=== PATIENT | male | born 1960 | race African-American/Black ===

== ENCOUNTER 2017-05-13 05:02 | Inpatient (IN) | payer OTHER, SELFPAY ==
[2017-05-13 05:47] LABS: #Eosinphils 0.1 thou/uL (0.0-0.7); #Monocytes 0.5 thou/uL (0.11-0.59); #Neutrophils 4.3 thou/uL (1.40-6.50); %Basophils 0.7 % (0.0-1.0); %Eosinophils 1.1 % (0.0-10.0); %Lymphocytes 16.6 % (21.0-51.0); %Monocytes 8.4 % (0.0-10.0); Hematocrit 48.2 % (42.0-52.0); Mean Platelet Volume 8.5 fL (7.4-10.4); White Blood Cell (WBC) Count 5.9 thou/uL (4.8-10.8)
[2017-05-13 05:51] LABS: Anion Gap 8 mmol/L (-14-95); T. Carbon Dioxide 21.8 mmol/L (1.0-85.0); pH (Venous) 7.468 (7.35-7.45); vO2 Saturation-calc 99.2 % (0.0-100.0)
[2017-05-13 05:55] LABS: Lactic Acid - Sepsis 1.2 mmol/L (0.5-2.2)
[2017-05-13 06:01] LABS: ALT (SGPT) 37 U/L (8-55); AST (SGOT) 30 U/L (5-34); Alkaline Phosphatase 93 U/L (40-150); Anion Gap 14 mmol/L (10-20); BUN (Urea Nitrogen) 17 mg/dL (8.4-25.7); Bilirubin, Total 0.9 mg/dL (0.2-1.2); Calc. Creatinine Clearance 0 mL/min (70-130); Calcium 9.2 mg/dL (7.8-10.44); Carbon Dioxide 22 mmol/L (22-29); Chloride 106 mmol/L (98-107); Estimated GFR-MDRD 81; Globulin 3.2 g/dL (2.4-3.5); Protein, Total 7.2 g/dL (6.0-8.3)
[2017-05-13] MEDS ORDERED: Azithromycin 250 MG TAB ONE (06:48)
[2017-05-13] MEDS ORDERED: Furosemide 40 MG/4 ML VIAL ONE (07:39)
--- NOTE | 2017-05-13 08:01 | RAD ---
PORTABLE UPRIGHT FRONTAL CHEST RADIOGRAPH: DATE: 05/13/17. COMPARISON: 04/20/16. HISTORY: Dyspnea. FINDINGS: Cardiac silhouette is prominent, which signify magnification and/or enlargement. There is no pneumot horax or large-volume pleural effusion. There is new hazy linear density in bilateral perihilar denisse ons and both lung bases. No focal consolidation. IMPRESSION: Pulmonary vascular prominence with interstitial linear density in the perihilar regions in both lung bases suggests interstitial edema. Interstitial inflammatory process cannot be excluded. Followup i ovidio following treatment advised. POS: [facility]
--- NOTE | 2017-05-13 09:08 | HP-2 ---
DATE OF ADMISSION: 05/13/2017 ATTENDING: Dr. Teodoro Veliz ADMISSION TIME: 625. CODE STATUS: Full code. PRIMARY CARE PHYSICIAN: Ismael hernandez. HISTORIAN: Patient. RESIDENT: PGY1 - Dr. Ara Cowan CHIEF COMPLAINT: Shortness of breath. HISTORY OF PRESENT ILLNESS: This is a 57-year-old man with a past medical history of hypertension who presents with a 2-3 week history of worsening shortness of breath. The patient states that he cannot lie flat without getting shortness of breath and feels that he cannot breathe when he lies flat. He also endorses a 2-3 day history of worsening cough and yellow/pink sputum. He endorses some fevers and chills at home, but he did not take his temperature. He also endorses some pain with coughing. The patient states that he had a test done on his heart a year ago which told him that the pumping function was not very good. He has been off his medications for several months because he does not have insurance and he was not able to afford them. The patient received 1 gram of ceftriaxone in the ER, azithromycin 500 mg p.o., 1 liter normal saline and DuoNebs x1. PAST MEDICAL HISTORY: Hypertension, asthma, hyperlipidemia, CHF with an ejection fraction of 32% on echo in 04/2016. PAST SURGICAL HISTORY: Denies. ALLERGIES: Denies. MEDICATIONS: Denies. FAMILY HISTORY: Denies. SOCIAL HISTORY: Endorses [id number] smoking history. Endorses drinking 6-7 drinks per weekend. Denies drug use. REVIEW OF SYSTEMS: GENERAL: Endorses fevers and chills. RESPIRATORY: Endorses cough, congestion, and shortness of breath, and sputum that is yellow and pink tinged. CARDIOVASCULAR: Denies chest pain, palpitations, edema. Endorses orthopnea. Denies paroxysmal nocturnal dyspnea. GI: Denies nausea, vomiting, diarrhea, constipation. NEUROLOGIC: Endorses generalized weakness. Denies numbness or syncope. MUSCULOSKELETAL: Denies pain or tenderness. SKIN: Denies rashes or lesions. GENITOURINARY: Denies dysuria or incontinence. PSYCHIATRIC: Denies anxiety or depression. ENT: Endorses congestion. Denies rhinorrhea or sore throat. PHYSICAL EXAMINATION: VITAL SIGNS: Blood pressure 145/91, pulse 98, respiratory rate 22, T-max 99.3, pulse ox 98% on 2 liters. Current weight 90 kilos. GENERAL: Alert and oriented x4, no apparent distress, well-developed, well- nourished, obese, appropriately interactive. EYES: PERRLA, EOMI. Conjunctivae within normal limits. ENT: Nasal mucosa within normal limits. Oropharynx within normal limits. NECK: Supple, no lymphadenopathy, no thyromegaly, no bruits. CARDIAC: Regular rate and rhythm. No murmur, no gallops. 2+, pedal pulses, 2 + radial pulses. RESPIRATORY: Respiratory rate normal. No retractions. Clear to auscultation bilaterally. SKIN: Warm and dry. ABDOMEN: Soft, tender to palpation in the right upper quadrant. Bowel sounds normoactive through all 4 quadrants. No masses or distention. EXTREMITIES: No clubbing, cyanosis or edema. MUSCULOSKELETAL: Structure within normal limits. Tone within normal limits. NEUROLOGICAL: No focal deficits. Sensation within normal limits. Cranial nerves II-XII intact. GCS 15. PSYCHIATRIC: Appropriate. LABORATORY DATA: CBC 5.9, 15.6, 48.2, platelets 238. CMP, 138, 4.3, 106, 22, 17, 1.13 109. AST, ALT and alkaline phosphatase are 30, 37, 93. Calcium, total protein and albumin are 9.2, 7.2 and 4.0. Total bilirubin 0.9, lactic acid 1.2. BNP 1639. CK-MB 2.1, troponin 0.30. Chest x-ray: Pulmonary vascular prominence with interstitial linear density in the perihilar region and both lung bases suggests interstitial edema, interstitial inflammatory process cannot be excluded. No pneumothorax or large volume pleural effusion, no focal consolidation. ASSESSMENT AND PLAN: Paul Lynn is a 57-year-old man with a past medical history of congestive heart failure with ejection fraction of 32% via stress test in 04/2016, is currently off of medications due to no insurance, presents with worsening shortness of breath over the past 2-3 weeks with cough and sputum production with an elevated BNP of 1639 and a chest x-ray that shows pulmonary congestion and chest x-ray which shows pulmonary interstitial edema, admitted for acute hypoxic respiratory failure 2/2 congestive heart failure exacerbation. 1. Acute hypoxic respiratory failure secondary to congestive heart failure exacerbation: The patient was placed on oxygen, is currently requiring 2 liters with saturations 98%. We will continue to monitor. A repeat chest x- ray will be done in the morning after the patient is diuresed throughout the day. In addition, we will monitor patient's vitals q.4 h for acute change in respiratory status. 2. Congestive heart failure with ejection fraction 32%, systolic in etiology. We will provide 40 IV dose of Lasix now and place the patient on 40 IV Lasix b.i.d. We will restart the patient's home medications of lisinopril; however, we will increase lisinopril to 10 mg daily. We will provide aspirin 81 mg daily. We will restart the patient's home medication of atorvastatin 40 mg. We will also order a lipid profile and a CK. The patient received a stress 1 year ago showing the ejection fraction 32%. However, there is no record of echo. We will place an order for echo to be done during this hospitalization. We will strictly monitor the patient's I's and O's. We will place patient on fluid restriction. We will continue to overall diurese the patient while monitoring the patient's BUN and creatinine. We will get CBC and BMP every morning. 3. Elevated troponin. We will trend the patient's troponins. The patient is not having any chest pain. We will order an EKG for the patient. 4. Respiratory alkalosis. We will continue to monitor the patient's respiratory status. This is likely because the patient came in with an increased respiratory rate and slightly hypoxic. We will continue to monitor the patient's respiratory status. 5. Tobacco abuse, alcohol use and drug abuse. We will educate the patient and provide supportive services if desired. DISPOSITION AND LENGTH OF HOSPITAL STAY: 2-3 days. Symptomatic medications will be provided. History and physical exam as well as management discussed with Dr. Sascha Charles. Patient seen by me with residents. I agree with reese portions of note above. Longstanding hypertension and known CHF. He was here in January and had a stress test which showed EF of 32%. No cath done at that time and no history of ASCVD although he does have risk factors, smoker, hypertension, and lipids. He is off of his meds now. We will resume his home meds, give IV lasix and check an echo. Cardiology also consulted. He should be on carvedilol, MARFIER/HCTZ and possibly spironolactone. JUAN J Charles MD MTDD
[2017-05-13 12:02] LABS: Troponin I 0.036 ng/mL (< 0.028)
[2017-05-13] MEDS ORDERED: Guaifenesin DM 100-10/5 ML UDCUP PO PRN (12:06)
[2017-05-13] MEDS ORDERED: Enoxaparin Sodium 40 MG/0.4 ML SYRINGE SC SCH (12:15)
[2017-05-13] MEDS ORDERED: Lisinopril 10 MG TAB PO SCH (12:15)
[2017-05-13] MEDS: Atorvastatin Calcium 40 MG TAB PO SCH (13:13)
[2017-05-13] MEDS: Furosemide 40 MG/4 ML VIAL SLOW IVP SCH (13:13)
[2017-05-13] MEDS: Acetaminophen 325 MG TAB PO PRN ×2 (13:14→20:43)
[2017-05-13] MEDS: Nicotine 21 MG PATCH TD SCH (13:14)
[2017-05-13 13:33] LABS: ALT (SGPT) 34 U/L (8-55); AST (SGOT) 27 U/L (5-34); Alkaline Phosphatase 86 U/L (40-150); Bilirubin, Direct 0.3 mg/dL (0.1-0.3); Bilirubin, Total 0.8 mg/dL (0.2-1.2)
[2017-05-13 16:20] VITALS: BMI 22.0
[2017-05-13] MEDS ORDERED: FLU VACC QS2017-18 36 mo. & older 0.5 ML SYRINGE IM ONE (21:00)
[2017-05-14 05:02] LABS: #Eosinphils 0.1 thou/uL (0.0-0.7); #Lymphocytes 1.1 thou/uL (1.20-3.40); #Monocytes 0.4 thou/uL (0.11-0.59); #Neutrophils 1.9 thou/uL (1.40-6.50); %Basophils 0.8 % (0.0-1.0); %Eosinophils 3.1 % (0.0-10.0); %Lymphocytes 30.8 % (21.0-51.0); %Monocytes 10.8 % (0.0-10.0); Hematocrit 51.2 % (42.0-52.0); Mean Platelet Volume 8.8 fL (7.4-10.4); Red Blood Cell (RBC) Count 5.48 mill/uL (4.70-6.10); White Blood Cell (WBC) Count 3.5 thou/uL (4.8-10.8)
[2017-05-14 05:31] LABS: Anion Gap 13 mmol/L (10-20); BUN (Urea Nitrogen) 20 mg/dL (8.4-25.7); Calc. Creatinine Clearance 98 mL/min (70-130); Calcium 9.1 mg/dL (7.8-10.44); Carbon Dioxide 23 mmol/L (22-29); Chloride 105 mmol/L (98-107); Estimated GFR-MDRD Greater than 90
--- NOTE | 2017-05-14 06:02 | PDOC.FM ---
- Subjective Subjective: Patient had a good night. He states he was able to sleep better last night and has not been as short of breath last night. He is saying that he is peeing a lot since we started the medication started. He is feeling much better. - Objective Vital Signs & Weight: Vital Signs (12 hours) Temp Pulse Resp BP Pulse Ox 05/14/17 04:00 97.6 F 73 16 112/72 95 05/14/17 00:29 98 05/13/17 19:18 98.6 F 85 20 141/95 H 98 Weight Weight 77.564 kg I&O: I&O is only from the account executive healthcare from 05/13-05/14 Intake: 480 ml Output: 1200 ml Net: -720 ml Result Diagrams: 05/14/17 04:16 05/14/17 04:16 <Hiram Harden - Last Filed: 05/14/17 08:29> - Objective Vital Signs & Weight: Vital Signs (12 hours) Temp Pulse Resp BP BP Pulse Ox 05/14/17 09:22 124/78 05/14/17 08:00 97.8 F 83 18 124/78 97 05/14/17 04:00 97.6 F 73 16 112/72 95 05/14/17 00:29 98 Weight Weight 77.564 kg I&O: 05/13/17 05/14/17 05/15/17 06:59 06:59 06:59 Intake Total 480 Output Total 1200 Balance -720 Result Diagrams: 05/14/17 04:16 05/14/17 04:16 <Kenroy Queen - Last Filed: 05/14/17 10:35> - Objective Vital Signs & Weight: Vital Signs (12 hours) Temp Pulse Resp BP BP Pulse Ox 05/14/17 09:22 124/78 05/14/17 08:00 97.8 F 83 18 124/78 97 05/14/17 04:00 97.6 F 73 16 112/72 95 05/14/17 00:29 98 Weight Weight 171 lb I&O: 05/13/17 05/14/17 05/15/17 06:59 06:59 06:59 Intake Total 480 240 Output Total 1200 Balance -720 240 Result Diagrams: 05/14/17 04:16 05/14/17 04:16 <Sascha Charles - Last Filed: 05/14/17 10:50> Phys Exam - Physical Examination HEENT: moist MMs Neck: no nodes Respiratory: no wheezing, clear to auscultation bilateral Cardiovascular: RRR, no significant murmur Gastrointestinal: soft, non-tender, no distention, positive bowel sounds Musculoskeletal: no edema, pulses present Neurological: non-focal, normal sensation, moves all 4 limbs Psychiatric: normal affect, A&O x 3 Skin: no rash <Hiram Harden - Last Filed: 05/14/17 08:29> Dx/Plan (1) Acute exacerbation of congestive heart failure Code(s): I50.9 - HEART FAILURE, UNSPECIFIED Status: Acute Plan: Improved today. -No documentation of I&Os from prior to 7PM on 05/13 -Will continue to diurese and initiate mcfp (PO) therapy. -Awaiting ECHO results (2) HTN (hypertension) Code(s): I10 - ESSENTIAL (PRIMARY) HYPERTENSION Status: Chronic Plan: -Uncontrolled at home -Will initiate therapy and monitor. (3) Elevated troponin Code(s): R74.8 - ABNORMAL LEVELS OF OTHER SERUM ENZYMES Status: Acute Plan: Likely demand ischemia -Trended down -Patient is asymptomatic -Will repeat Cardiac profile with EKG if chest pain occurs. (4) Tobacco abuse Code(s): Z72.0 - TOBACCO USE Status: Chronic Plan: -Counseled to quit -Will have nicotine patch available if needed. - Plan Plan: Will initiate terminal supervisor therapy and set up patient with resources to pay for medications. <Hiram Harden - Last Filed: 05/14/17 08:29> - Plan Plan: Upper Level Note: S: Patient feels significantly better today. Reports no dyspnea or orthopnea. Vitals BP 112/72 O2 95% on room air Temp 97.6 RR 16 H6 73 Exam: A&Ox3. NAD. Lungs CTAB. Normal work of breathing. Heart regular rate and rhythm with no murmurs, rubs, or gallops. No LE edema A/P: 1) CHF with acute exacerbation - Now resolved. Stopping Lasix. Will start B-vibha if BP will tolerate. Echo pending. Consult cardiology for further recs. Will need close outpatient follow up 2) HCTZ - Adding HCTZ to regimen. Already on Lisinopril. Will change to lisinopril-HCTZ combo tomorrow as that is on the $4 list at [facility]. Patient may not experience much BP benefit from MARIFER but will benefit with regards to his CHF. If his BP will tolerate, we will consider starting a low dose B- vibha to help with CHF <Kenroy Queen - Last Filed: 05/14/17 10:35> Attending Addendum - Attending Addendum I personally evaluated the patient and discussed the management with Dr. Harden and Bret I agree with the History, Examination, Assessment and Plan documented above. <Sascha Charles - Last Filed: 05/14/17 10:50>
[2017-05-14] MEDS: Furosemide 40 MG/4 ML VIAL SLOW IVP SCH (06:20)
[2017-05-14] MEDS: Acetaminophen 325 MG TAB PO PRN ×3 (06:24→19:07)
[2017-05-14] MEDS ORDERED: Lisinopril 10 MG TAB PO SCH (09:00)
[2017-05-14] MEDS: Atorvastatin Calcium 40 MG TAB PO SCH (09:22)
[2017-05-14] MEDS: Enoxaparin Sodium 40 MG/0.4 ML SYRINGE SC SCH (09:23)
[2017-05-14] MEDS: Nicotine 21 MG PATCH TD SCH (12:13)
--- NOTE | 2017-05-14 15:59 | CON ---
DATE OF CONSULTATION: 05/14/2017 HISTORY OF PRESENT ILLNESS: The patient is a 57-year-old gentleman with a history of a cardiomyopathy who presents with increasing dyspnea. The patient was seen approximately a year ago with development of chest pain and dyspnea. He was found to have a severe cardiomyopathy. The patient underwent a nuclear stress test, which revealed ejection fraction of 32% with no evidence of ischemia. The patient was placed on medical therapy. The patient did not come for followup. The patient reports that he has not been compliant with his medications. He reports having marked shortness of breath. He denies having any further chest discomfort. PAST MEDICAL HISTORY: 1. Cardiomyopathy. 2. Hypertension. PAST SURGICAL HISTORY: None. SOCIAL HISTORY: The patient has a long history of tobacco abuse and consumes excessive amounts of alcohol. ALLERGIES: None. MEDICATIONS: None. REVIEW OF SYSTEMS: Ten-point system otherwise unremarkable. PHYSICAL EXAMINATION: GENERAL: This is a well-developed gentleman, in no acute distress. VITAL SIGNS: Blood pressure 131/83. NECK: Showed no jugular venous distention. LUNGS: Have a few crackles in both lung elena. HEART: Regular rate and rhythm, normal S1, S2. ABDOMEN: Nondistended. EXTREMITIES: Showed trace edema. SKIN: Warm and dry. NEUROLOGIC: Nonfocal. VASCULAR: Radial pulses are 2+. LABORATORY DATA: White blood count 5.6, hemoglobin 16.1, hematocrit 51.2, platelets were 211. Sodium is 137, potassium 3.9, chloride 105, bicarbonate 23 , BUN 20, creatinine is 0.92, glucose is 87. His EKG reveals him to have normal sinus rhythm with a T-wave abnormality suggestive of ischemia. IMPRESSION: 1. Congestive heart failure. 2. Cardiomyopathy. 3. Hypertension. 4. Tobacco abuse. 5. Ethanol abuse. This unfortunate gentleman has a severe cardiomyopathy. I have recommended that he proceed with cardiac catheterization to define whether he has any evidence of significant coronary artery disease. From a cardiac standpoint, the life threatening consequences of his noncompliance have been explained to the patient. The importance of him discontinuing the use of alcohol and tobacco have also been explained. PLAN: 1. Start Coreg 3.125 twice a day. 2. Start lisinopril. 3. Add low dose spironolactone. 4. Proceed with cardiac catheterization. [facility]
[2017-05-14] MEDS: Carvedilol 3.125 MG TAB PO SCH (17:20)
[2017-05-14] MEDS ORDERED: Hydrochlorothiazide 25 MG TAB PO SCH (18:00)
[2017-05-14] MEDS: Lisinopril 2.5 MG TAB PO SCH (20:12)
[2017-05-15] MEDS: Acetaminophen 325 MG TAB PO PRN ×2 (03:54→11:59)
[2017-05-15 05:11] LABS: #Eosinphils 0.2 thou/uL (0.0-0.7); #Lymphocytes 1.1 thou/uL (1.20-3.40); #Monocytes 0.4 thou/uL (0.11-0.59); #Neutrophils 1.4 thou/uL (1.40-6.50); %Basophils 0.6 % (0.0-1.0); %Eosinophils 5.5 % (0.0-10.0); %Monocytes 13.1 % (0.0-10.0); Anion Gap 13 mmol/L (10-20); BUN (Urea Nitrogen) 24 mg/dL (8.4-25.7); Calc. Creatinine Clearance 86 mL/min (70-130); Calcium 9.3 mg/dL (7.8-10.44); Carbon Dioxide 23 mmol/L (22-29); Chloride 104 mmol/L (98-107); Estimated GFR-MDRD 87; Hematocrit 50.6 % (42.0-52.0); Red Blood Cell (RBC) Count 5.43 mill/uL (4.70-6.10); White Blood Cell (WBC) Count 3.1 thou/uL (4.8-10.8)
--- NOTE | 2017-05-15 06:08 | PDOC.FM ---
- Subjective Subjective: Patient had a great night. He states he is basically back to normal. He said he was able to walk as far as he wanted and wasn't SOB. He also notes he doesn't have to take "baby" breaths and doesn't cough after every breath. Yesterday he refused a cardiac Cath with Dr. Santa and has opted to do medical management at this time. - Objective Vital Signs & Weight: Vital Signs (12 hours) Temp Pulse Resp BP Pulse Ox 05/15/17 04:00 97.9 F 68 18 130/70 95 05/15/17 02:10 94 L 05/14/17 19:30 98.0 F 74 18 137/81 94 L Weight Weight 78.925 kg I&O: 05/13/17 05/14/17 05/15/17 06:59 06:59 06:59 Intake Total 480 1440 Output Total 1200 1999 Balance -513 -880 Result Diagrams: 05/15/17 04:18 05/15/17 04:18 <Hiram Harden - Last Filed: 05/15/17 08:23> - Objective Vital Signs & Weight: Vital Signs (12 hours) Temp Pulse Resp BP BP Pulse Ox 05/15/17 08:52 119/80 05/15/17 08:49 70 119/80 05/15/17 08:00 98.2 F 70 17 119/80 95 05/15/17 07:23 97.9 F 68 18 95 05/15/17 04:00 97.9 F 68 18 130/70 95 05/15/17 02:10 94 L Weight Weight 78.925 kg I&O: 05/14/17 05/15/17 05/16/17 06:59 06:59 06:59 Intake Total 1200 1440 Output Total 2900 1999 Balance -9296 -777 Result Diagrams: 05/15/17 04:18 05/15/17 04:18 <Kenroy Queen - Last Filed: 05/15/17 10:31> - Objective Vital Signs & Weight: Vital Signs (12 hours) Temp Pulse Resp BP BP Pulse Ox 05/15/17 08:52 119/80 05/15/17 08:49 70 119/80 05/15/17 08:00 98.2 F 70 17 119/80 95 05/15/17 07:23 97.9 F 68 18 95 05/15/17 04:00 97.9 F 68 18 130/70 95 05/15/17 02:10 94 L Weight Weight 174 lb I&O: 05/14/17 05/15/17 05/16/17 06:59 06:59 06:59 Intake Total 1200 1440 Output Total 2900 2000 Balance -1700 -560 Result Diagrams: 05/15/17 04:18 05/15/17 04:18 <Sascha Charles - Last Filed: 05/15/17 10:46> Phys Exam - Physical Examination HEENT: moist MMs Neck: no nodes, supple Respiratory: no wheezing, clear to auscultation bilateral Cardiovascular: RRR, no significant murmur Gastrointestinal: soft, non-tender, no distention, positive bowel sounds Musculoskeletal: no edema, pulses present Neurological: non-focal, normal sensation, moves all 4 limbs Psychiatric: normal affect, A&O x 3 <Hiram Harden - Last Filed: 05/15/17 08:23> Dx/Plan (1) Acute exacerbation of congestive heart failure Code(s): I50.9 - HEART FAILURE, UNSPECIFIED Status: Acute Plan: Improved today. -No documentation of I&Os from prior to 7PM on 05/13 -Will continue to diurese and initiate intermediate frame tender (PO) therapy. -Cardiology consult with Dr. Santa, appreciate his recs. -Dr. Santa recommended a Cath and patient has refused. Would like to try medical management first. -Carvedilol, Spironolactone, Lisinopril, Lasix as an outpatient. -ECHO shows EF of 15-20% -Patient counseled heavily on risks of his Heart Failure and the consequences from his condition. He has refused to undergo a catheterization with the understanding that the procedure is the best option for improvement of his disease. At this time he still does not want to undergo a cath. (2) HTN (hypertension) Code(s): I10 - ESSENTIAL (PRIMARY) HYPERTENSION Status: Chronic Plan: -Uncontrolled at home -Will initiate therapy and monitor. (3) Elevated troponin Code(s): R74.8 - ABNORMAL LEVELS OF OTHER SERUM ENZYMES Status: Acute Plan: Likely demand ischemia -Trended down -Patient is asymptomatic -Will repeat Cardiac profile with EKG if chest pain occurs. (4) Tobacco abuse Code(s): Z72.0 - TOBACCO USE Status: Chronic Plan: -Counseled to quit -Will have nicotine patch available if needed. - Plan Plan: Patient will either undergo Cath today or be discharged today. Will follow up with Cards recs. <Hiram Harden - Last Filed: 05/15/17 08:23> - Plan Plan: Upper Level Note Patient still feeling well today. No longer having symptoms. Denies chest pain , dyspnea, orthopnea. Vital Signs: Temp 97.9 HR 68 RR 18 O2 95% on 2L BP 130/70 Exam: Alert and oriented x3. NAD. Heart regular rate and rhythm with no murmurs rubs or gallops. Lungs CTAB. No wheezing rales or rhonchi. A/P: 1) Acute exacerbation of CHF - Patient now on Lasix, sprionolactone, lisinopril , and Coreg. Cardiology recommends catheterization. Patient is to consider his options today. I personally examined the patient. Agree wtih Dr. Harden's note as listed above. Please refer to his note for details and full assessment and plan. <Kenroy Queen - Last Filed: 05/15/17 10:31> Attending Addendum - Attending Addendum I personally evaluated the patient and discussed the management with Dr. Queen and Fina I agree with the History, Examination, Assessment and Plan documented above with any addition or exceptions noted below. Patient has a 15-20% EF on echo. We are treating with MARIFER, carvedilol and spironolactone. Patient refused a cath yesterday. We had a long discussion with him this morning which included his prognosis, and the possibility of improving it with revascularization. He is mostly needle phobic and very afraid of the procedure. We will revisit him later after he has a chance to think about the options. For now, medical management. He is doing well without complaints at present. <Sascha Charles - Last Filed: 05/15/17 10:46>
[2017-05-15] MEDS ORDERED: Spironolactone 25 MG TAB PO SCH (08:00)
[2017-05-15] MEDS ORDERED: Carvedilol 3.125 MG TAB PO SCH (08:35)
[2017-05-15] MEDS ORDERED: Carvedilol 6.25 MG TAB PO SCH ×2 (08:45→17:00)
[2017-05-15 08:47] VITALS: TEMP 98.2
[2017-05-15] MEDS: Lisinopril 2.5 MG TAB PO SCH (08:49)
[2017-05-15] MEDS: Atorvastatin Calcium 40 MG TAB PO SCH (08:49)
[2017-05-15] MEDS: Enoxaparin Sodium 40 MG/0.4 ML SYRINGE SC SCH (08:50)
[2017-05-15] MEDS: Carvedilol 3.125 MG TAB PO SCH (08:53)
[2017-05-15] MEDS ORDERED: Lisinopril/Hydrochlorothiazide 10 mg/12.5 mg Tablet PO SCH (09:00)
[2017-05-15] MEDS ORDERED: Furosemide 20 MG TAB PO SCH (09:00)
[2017-05-15] MEDS: Nicotine 21 MG PATCH TD SCH (11:59)
[2017-05-15 12:20] VITALS: BP 124/76
--- NOTE | 2017-05-15 18:47 | DIS-2 ---
DATE OF ADMISSION: 05/13/2017 DATE OF DISCHARGE: 05/15/2017 RESIDENT: Hiram Harden MD ADMITTING ATTENDING: Elvin Portillo M.D. DISCHARGE ATTENDING: Sascha Charles M.D. CONSULTATIONS: Cardiology with Dr. Santa, to [facility], to case management for financial assistance, to dietitians, and to the heart failure disease management team. PROCEDURES: None. PRIMARY DIAGNOSES: 1. Acute exacerbation of congestive heart failure due to hypertensive cardiomyopathy. 2. Hypertension. 3. Tobacco abuse. 4. Elevated troponins. DISCHARGE MEDICATIONS: 1. Aspirin 81 mg. 2. Atorvastatin 40 mg. 3. Carvedilol 6.25 mg b.i.d. 4. Furosemide 20 mg. 5. Lisinopril 2.5 mg b.i.d. 6. Spironolactone 25 mg. DISCONTINUED MEDICATIONS: None. HISTORY OF PRESENT ILLNESS AND HOSPITAL COURSE: This is a 57-year-old man with a past medical history significant for hypertension, who presents with a 2-3 week history of worsening shortness of breath. The patient states he cannot lie flat without getting short of breath and feels like he cannot breathe when he lies flat. He also endorses a 2-3 day history of worsening cough and yellow pink sputum. He endorses some fevers and chills at home, but he did not take his temperature. He also endorses some pain with coughing. The patient states he had a test done on his heart about a year ago and was told him he had a pumping function that was not very good. He has been off his medications for several months because he did not have insurance and was not able to afford them. During his hospitalization, it was found out that his ejection fraction at a previous stress test was 32%. We opted to get an echocardiogram that showed an ejection fraction of 15-20%. At that time, also with the echocardiogram, it showed normal size of left atrium, left ventricle size is moderately increased, mild mitral regurgitation, and mild tricuspid regurgitation is present. Because of his signs and symptoms and his echocardiogram read, Dr. Santa with Cardiology was consulted. He came to see the patient and he recommended the patient undergo a cardiac catheterization to identify any evidence of significant coronary artery disease. The patient will not proceed with a cardiac catheterization and has opted to do medical management. The risks of the life threatening consequences of his noncompliance have been explained to the patient extensively with all of the options provided as far as a cardiac catheterization opting for medical management or also going back into his normal routine. We also know that his 5-year survival rate will be very poor if he goes back and does not take his medications and does not have close followup. It was explained to this patient. He expressed understanding and said that he just has a fear of hospitals and needles that he cannot overcome to undergo this procedure. It was later found out that the patient has some significant financial issues to where he cannot afford a LifeVest at this time either. As per the recommendation of Dr. Santa, if he would not undergo the catheterization, he would like him to get a LifeVest; however, the patient cannot come up with $500 needed to get the LifeVest. The resource management center actually has been able to afford his first month of medications for him at no cost hoping that this will help him get back on his feet so that he will be able to afford his medications in the future. Some notable lab values: He had a troponin that ranged from 0.03-0.04. He had a BNP that was 1639 on admission, down to 867 the day before discharge. His lab values were otherwise unremarkable. The patient has expressed understanding of the consequences of his decision not to proceed with cardiac catheterization and just the medical management. He will be followed closely by Dr. Santa at an appointment on the as well as a primary care provider that will be set up with the doctor at the [facility]. He is also going to be followed by the healthcare clinic going forward. DISPOSITION: Stable. DISCHARGE INSTRUCTIONS: 1. Location will be discharged home into his own care. 2. Diet will be heart healthy diet. 3. Activity will be as tolerated. 4. Followup will be with Dr. Santa with Cardiology on 05/29/2017, with [facility] within 1 week, and then with the [facility] within 1 week as well. We wish Mr. Lynn all the best. We hope that his condition does not deteriorate and that he will be able to make a full recovery and he will be able to live a long healthy life. LUIS
== END 2017-05-15 13:03 | disposition home or self-care (01) | DRG 291 ==
LOC: ERS 05:02 → ERHOLD 06:16 → 2NO 11:47
PROVIDERS: ADMIT Family Medicine; ATTEND Family Medicine
DX: I11.0 Hypertensive heart disease with heart failure (principal); J96.01 Acute respiratory failure with hypoxia; E87.3 Alkalosis; I07.1 Rheumatic tricuspid insufficiency; I34.0 Nonrheumatic mitral (valve) insufficiency; I50.9 Heart failure, unspecified; I25.10 Atherosclerotic heart disease of native coronary artery without angina pectoris; Z91.14 Patient's other noncompliance with medication regimen; F17.210 Nicotine dependence, cigarettes, uncomplicated; I50.23 Acute on chronic systolic (congestive) heart failure; F10.10 Alcohol abuse, uncomplicated
CPT/HCPCS: 36415; 71010; 80048; 80053; 80061; 82330; 82553; 82803; 83605; 83880; 84484; 85025; 87040; 93005; 93306; 93798; 94760; 96361; 96374; 96375; 99406; A4216; J0696; J1650; J1940; J7620

== ENCOUNTER 2018-05-21 10:40 | Inpatient (IN) | payer OTHER, SELFPAY ==
[2018-05-21 11:37] LABS: #Eosinphils 0.1 thou/uL (0.0-0.7); #Lymphocytes 1.1 thou/uL (1.20-3.40); #Monocytes 0.5 thou/uL (0.11-0.59); #Neutrophils 4.5 thou/uL (1.40-6.50); %Basophils 0.7 % (0.0-1.0); %Eosinophils 1.8 % (0.0-10.0); %Lymphocytes 17.5 % (21.0-51.0); %Monocytes 7.4 % (0.0-10.0); %Neutrophils 72.7 % (42.0-75.0); Hemoglobin 14.3 g/dL (14.0-18.0); Mean Corpuscular HGB CONC 30.6 g/dL (32.0-36.0); Mean Corpuscular Volume 91.4 fL (78.0-98.0); Mean Platelet Volume 8.5 fL (7.4-10.4); Platelet Count 350 thou/uL (130-400); RBC Distribution Width 12.6 % (11.5-14.5); Red Blood Cell (RBC) Count 5.12 mill/uL (4.70-6.10); White Blood Cell (WBC) Count 6.1 thou/uL (4.8-10.8)
--- NOTE | 2018-05-21 11:45 | RAD ---
SINGLE VIEW OF THE CHEST: Comparison: 05-13-17 History: Shortness of breath, chest pain for one week. FINDINGS: Single view of the chest shows an enlarged but stable cardiomediastinal silhouette. There has been in terval development of airspace opacity in the right lower lobe consistent with an infiltrate. No pleu ral effusion is seen. IMPRESSION: Right lower lobe pneumonia. POS: [facility]
[2018-05-21 11:56] LABS: ALT (SGPT) 36 U/L (8-55); AST (SGOT) 24 U/L (5-34); Albumin 3.7 g/dL (3.5-5.0); Alkaline Phosphatase 98 U/L (40-150); Anion Gap 12 mmol/L (10-20); BUN (Urea Nitrogen) 15 mg/dL (8.4-25.7); Calc. Creatinine Clearance 0 mL/min (70-130); Calcium 9.2 mg/dL (7.8-10.44); Carbon Dioxide 27 mmol/L (22-29); Chloride 107 mmol/L (98-107); Estimated GFR-MDRD Greater than 90; Globulin 3.2 g/dL (2.4-3.5); Glucose 128 mg/dL (70-105); Lipase 12 U/L (8-78); Potassium 4.3 mmol/L (3.5-5.1); Protein, Total 6.9 g/dL (6.0-8.3); Sodium 142 mmol/L (136-145)
[2018-05-21 12:19] LABS: CKMB 4.8 ng/mL (0-6.6)
[2018-05-21] MEDS ORDERED: Aspirin 325 MG TAB ONE (12:19)
[2018-05-21] MEDS ORDERED: Furosemide 20 MG/2 ML VIAL ONE (12:20)
[2018-05-21] MEDS ORDERED: Vancomycin HCl 500 MG VIAL ONE (12:32)
[2018-05-21] MEDS ORDERED: methylPREDNISolone Sod Succ/PF 125 MG/2 ML VIAL ONE (12:39)
[2018-05-21] MEDS ORDERED: Nitroglycerin 0.4 MG TAB (25 Tab Bottle) ONE (13:32)
[2018-05-21 15:09] LABS: Troponin I 0.048 ng/mL (< 0.028)
[2018-05-21] MEDS ORDERED: Acetaminophen 325 MG TAB PO PRN (15:20)
[2018-05-21] MEDS ORDERED: Senokot S 8.6-50 MG TAB PO PRN (15:20)
[2018-05-21 15:38] VITALS: BMI 27.8
--- NOTE | 2018-05-21 16:05 | HP ---
REASON FOR ADMISSION: Acute congestive heart failure exacerbation and [id number] chronic obstructive pulmonary disease exacerbation. HISTORY OF PRESENTING ILLNESS: The patient gives history of having shortness of breath and could not lay down. This started around Thanksgi. This has been gradually getting worse. He has also started to bring up sputum laced with blood. From last three days, he is also feeling that his abdominal wall is getting tight and then, thinks that fluid is getting accumulated. There is no complaints of fever. The patient continues to smoke a pack and a half of cigarettes daily. He has known history of heart failure and has not been compliant with medications. His last admission was in May of 2017 and was found to have had EF of 15% to 20%. No complaints of urinary frequency or urgency. The patient normally ambulates inside the house. PAST MEDICAL AND SURGICAL HISTORY: History of cardiomyopathy with EF of 15% to 20%, hypertension, dyslipidemia, tobacco abuse. CURRENT MEDICATIONS: None from last 3 to 4 weeks. He has been noncompliant with medications even before that. ALLERGIES: NO KNOWN DRUG ALLERGIES. PERSONAL HISTORY: Smokes one and half packs a day and drinks 1 to 2 cups of bessie daily or almost alternate days. Does not abuse drugs. Retired as a overhauler bus truck. FAMILY HISTORY: Mother of CVA and its complications at the age of 78 years. Father is still living and healthy. Code status is full. Power of sliver handler is his sister, Ms. Beatriz Lynn. REVIEW OF SYSTEMS: CONSTITUTIONAL: Negative for weight loss or gain, ability to conduct usual activities. SKIN: Negative for rash, itching. EYES: Negative for double vision, pain. ENT/MOUTH: Negative for nose bleeding, neck stiffness, pain, tenderness. CARDIOVASCULAR: Negative for palpitations, dyspnea on exertion, orthopnea. RESPIRATORY: Negative for shortness of breath, wheezing, cough, hemoptysis, fever or night sweats. GASTROINTESTINAL: Negative for poor appetite, abdominal pain, heartburn, nausea, vomiting, constipation, or diarrhea. GENITOURINARY: Negative for urgency, frequency, dysuria, nocturia. MUSCULOSKELETAL: Negative for pain, swelling. NEUROLOGIC/PSYCHIATRIC: Negative for anxiety, depression. ALLERGY/IMMUNOLOGIC: Negative for skin rash, bleeding tendency. PHYSICAL EXAMINATION: GENERAL: The patient is a 58-year-old male, who is currently not in any acute distress. VITAL SIGNS: Blood pressure 160/100, pulse 110 per minute, respiratory rate 24 per minute, temperature 98.6 degrees Fahrenheit, and saturating 95% on room air. NECK: Supple. There is mild elevation in JVD. HEENT: Eyes, extraocular muscles are intact. Pupils are reacting to light. Oral cavity, mucous membranes are moist. No exudates or congestion. CARDIOVASCULAR SYSTEM: S1 and S2 heard, S3 plus. No murmur. RESPIRATORY system: Air entry 1+ bilateral. There is rales plus in the infrascapular area. ABDOMEN: Soft. Mild distention in the lower quadrants, but no rigidity or guarding. EXTREMITIES: No peripheral edema or calf tenderness. VASCULAR SYSTEM: Peripheral pulses 1+ bilateral. No ischemic ulcerations or gangrene. CENTRAL NERVOUS SYSTEM: No gross focal deficits noted. The patient is alert, awake, and oriented well. PSYCHIATRIC SYSTEM: The patient's mood is euthymic. No hallucinations or delusions. LABORATORY DATA: EKG done shows sinus rhythm at 89 beats per minute. There are signs of LVH strain pattern seen. There is T-inversion seen in V5, V6, likely due to LVH strain. White count of 6, hemoglobin and hematocrit 14 and 46, platelet count 350, MCV is 91 with 72% neutrophils. Electrolytes, stable. BUN 15, creatinine 0.9, serum glucose 128. Liver enzymes within normal limits. Troponin I is 0.03, CK-MB 4.8, and BNP 1817. Albumin is 3.7. Lipase is 12. Chest x-ray done shows pulmonary vascular congestion. There is also a suspicion of possible infiltrate in the right lower lobe. CLINICAL IMPRESSION AND PLAN: The patient will be under observation on telemetry for congestive heart failure exacerbation with ejection fraction of around 10% to 15%, chronic obstructive pulmonary disease exacerbation, and pneumonia, suspected on the right lower lobe. We placed him on Levaquin. Blood cultures have been obtained in the ER. We will try to obtain a sputum culture. He will be on DuoNebs, Solu-Medrol, and we will also gently diurese him with Lasix 40 mg IV q.12 hourly. We will continue him on aspirin, Lipitor, small dose of Coreg, and lisinopril. He has had echo done a year back with very low ejection fraction. The patient also has had a nuclear stress test done in 2016, with TID of 1.1, but no reversible ischemia seen on the nuclear scan. Based on his clinical improvement, the patient likely will need risk stratification due to his ejection fraction worsening from 2016 to 2017 and it is unclear of the current number. Also, he will be switched over to inpatient status depending on clinical status in the morning. Job ID: [id number]
--- NOTE | 2018-05-21 17:52 | CON ---
DATE OF CONSULTATION: 05/21/2018 PRIMARY STREAM CONTROL OFFICER: Raphael Santa MD REASON FOR CONSULTATION: Heart failure. HISTORY OF PRESENT ILLNESS: Mr. Lynn is a pleasant 58-year-old gentleman, who comes to the hospital for worsening shortness of breath. He has a history of cardiomyopathy, dilated EF at 15% to 20%, last seen in May 2017 during an admission to the hospital for similar complaints with heart failure. At that time, Dr. Santa evaluated him and offered him a heart catheterization. He was extremely afraid of the possible complications of the procedures he declined at that time. He ran out of medications a few months ago and noticed that since after Thanksgiving, he slowly started to accumulate fluid around his belly and started to get progressively more short of breath. He came in this time as he felt he was drowning. He received 1 dose of IV Lasix in the ER and is already feeling much better. He is already diuresed quite a bit, and his abdomen is actually much smaller than when he came in. The patient has been having cough with blood-tinged sputum in the last 2 to 3 weeks. PAST MEDICAL HISTORY: 1. Dilated cardiomyopathy, EF at 15% to 20%, thought to be hypertensive from stress test, however, he declined heart catheterization recently. 2. Tobacco abuse. He continues to smoke a pack a day. 3. Hyperlipidemia. 4. Hypertension. OUTPATIENT MEDICATIONS: Nothing for the last 4 weeks. He should be on: 1. Carvedilol 6.25 b.i.d. 2. Atorvastatin 40 a day. 3. Aspirin 81 a day. 4. Aldactone 25 q.a.m. 5. Lisinopril 2.5 b.i.d. 6. Lasix 20 mg a day. ALLERGIES: NO KNOWN DRUG ALLERGIES. SOCIAL HISTORY: Smokes 1 to 1-1/2 packs a day and drinks about 2 cups of bessie a day. No drug use. FAMILY HISTORY: Mother with CVA. Father, healthy, still living. PAST SURGICAL HISTORY: None. REVIEW OF SYSTEMS: A 12-point review of systems was done and was found to be negative unless stated in the history of present illness. PHYSICAL EXAMINATION: VITAL SIGNS: Temperature 98.0, pulse 89, respiratory rate 18, saturating 95% on room air, and blood pressure 147/90. GENERAL: Awake, alert, and oriented x3. No distress. HEENT: Normocephalic and atraumatic. NECK: Supple. JVP about 12 cm of water. LUNGS: Clear. CARDIOVASCULAR: S1 and S2. There is positive S4. There is positive S3. No murmurs. ABDOMEN: Mildly distended. Positive ascitic wave. EXTREMITIES: Trace edema. SKIN: Warm and dry. LABORATORY DATA: Laboratory work was reviewed. CBC is unremarkable. Chemistry is unremarkable except for glucose of 128. BNP was 1817 and troponin is in the indeterminate range at 0.03 and 0.04 repeat. EKG was reviewed. Normal sinus rhythm with inverted T-waves in the anterolateral leads. ASSESSMENT: 1. Acute on chronic systolic heart failure. 2. Medication noncompliance. 3. Ongoing tobacco abuse. 4. Hypertension. 5. Hyperlipidemia. 6. Right lower lobe pneumonia, seen on chest x-ray. PLAN: 1. Continue IV diuresis with Lasix. 2. Restart home medications, most of them already had been restarted. I agree with Dr. Eldridge's initial doses for now. 3. Antibiotics per primary team for his right lower lobe pneumonia. 4. Mr. Lynn is actually considering having a heart catheterization. He states that he was very concerned on his last visit about the possibility of having any complications that can arise from the procedure, even though there was low risk, that is why he did not want to have it. At this time, he has a girlfriend and there is a child now and he may consider this, but he is still thinking about it. Currently, he is not a candidate yet as he is unable to lay flat for this. 5. Dr. Santa, his primary skiver operator, will follow up in the morning. Job ID: [id number]
[2018-05-21] MEDS: Famotidine 20 MG TAB PO SCH (20:37)
[2018-05-21] MEDS: Carvedilol 3.125 MG TAB PO SCH (20:37)
[2018-05-21] MEDS ORDERED: Amoxicillin/Potassium Clav 875 MG TAB PO SCH (21:00)
[2018-05-22 06:19] LABS: #Lymphocytes 0.6 thou/uL (1.20-3.40); #Monocytes 0.3 thou/uL (0.11-0.59); #Neutrophils 6.3 thou/uL (1.40-6.50); %Eosinophils 0.2 % (0.0-10.0); %Lymphocytes 7.7 % (21.0-51.0); %Monocytes 4.3 % (0.0-10.0); %Neutrophils 87.9 % (42.0-75.0); Hemoglobin 14.4 g/dL (14.0-18.0); Mean Corpuscular HGB CONC 32.2 g/dL (32.0-36.0); Mean Corpuscular Hemoglobin 29.6 pg (27.0-31.0); Mean Corpuscular Volume 91.8 fL (78.0-98.0); Mean Platelet Volume 8.6 fL (7.4-10.4); Platelet Count 351 thou/uL (130-400); RBC Distribution Width 12.4 % (11.5-14.5); Red Blood Cell (RBC) Count 4.87 mill/uL (4.70-6.10); White Blood Cell (WBC) Count 7.1 thou/uL (4.8-10.8)
[2018-05-22] MEDS: Furosemide 40 MG/4 ML VIAL SLOW IVP SCH ×2 (06:26→15:18)
[2018-05-22 06:30] LABS: Anion Gap 15 mmol/L (10-20); BUN (Urea Nitrogen) 18 mg/dL (8.4-25.7); Calc. Creatinine Clearance 103 mL/min (70-130); Calcium 9.5 mg/dL (7.8-10.44); Carbon Dioxide 24 mmol/L (22-29); Chloride 105 mmol/L (98-107); Estimated GFR-MDRD Greater than 90; Glucose 169 mg/dL (70-105); Potassium 5.1 mmol/L (3.5-5.1); Sodium 139 mmol/L (136-145)
[2018-05-22] MEDS: Carvedilol 3.125 MG TAB PO SCH (08:43)
[2018-05-22] MEDS: Famotidine 20 MG TAB PO SCH ×2 (08:43→20:51)
[2018-05-22] MEDS: Atorvastatin Calcium 40 MG TAB PO SCH (08:43)
[2018-05-22] MEDS: Spironolactone 25 MG TAB PO SCH (08:44)
[2018-05-22] MEDS: Enoxaparin Sodium 40 MG/0.4 ML SYRINGE SC SCH ×2 (08:45→08:49)
[2018-05-22] MEDS ORDERED: Lisinopril 2.5 MG TAB PO SCH (09:00)
--- NOTE | 2018-05-22 10:52 | PDOC.PN ---
- Subjective Encounter Start Date: 05/22/18 Encounter Start Time: 10:00 Subjective: breathing better, still has cough -: no chest pain this morning - Objective Resuscitation Status - Order Detail: 05/21/18 15:15 Resuscitation Status Routine Resuscitation Status: FULL: Full Resuscitation Discussed with: POA: sister Ms.Agnes Shane BETANCUR Reviewed: Yes Vital Signs & Weight: Vital Signs (12 hours) Temp Pulse Resp BP Pulse Ox 05/22/18 08:43 76 05/22/18 07:05 98.2 F 76 20 142/100 H 92 L 05/22/18 06:35 82 20 94 L 05/22/18 02:53 97.5 F L 77 18 151/92 H 92 L 05/22/18 02:41 80 18 95 Weight Weight 195 lb 11.2 oz I&O: 05/21/18 05/22/18 05/23/18 06:59 06:59 06:59 Intake Total 1025 Output Total 775 1500 Balance 250 -1500 Result Diagrams: 05/22/18 05:42 05/22/18 05:42 Phys Exam - Physical Examination HEENT: PERRLA, moist MMs Neck: no JVD, supple Respiratory: no wheezing basal rales+ Cardiovascular: RRR, no significant murmur Gastrointestinal: soft, non-tender, positive bowel sounds Musculoskeletal: no edema, pulses present Neurological: non-focal, moves all 4 limbs Psychiatric: normal affect, A&O x 3 Dx/Plan (1) Acute exacerbation of congestive heart failure Code(s): I50.9 - HEART FAILURE, UNSPECIFIED Status: Acute Qualifiers: Heart failure type: systolic Qualified Code(s): I50.23 - Acute on chronic systolic (congestive) heart failure Comment: ef of around 15% (2) PNA (pneumonia) Code(s): J18.9 - PNEUMONIA, UNSPECIFIED ORGANISM Status: Acute Qualifiers: Pneumonia type: due to unspecified organism Laterality: right Lung location: lower lobe of lung Qualified Code(s): J18.1 - Lobar pneumonia, unspecified organism (3) COPD exacerbation Code(s): J44.1 - CHRONIC OBSTRUCTIVE PULMONARY DISEASE W (ACUTE) EXACERBATION Status: Acute (4) HLD (hyperlipidemia) Code(s): E78.5 - HYPERLIPIDEMIA, UNSPECIFIED Status: Chronic Qualifiers: Hyperlipidemia type: unspecified Qualified Code(s): E78.5 - Hyperlipidemia , unspecified (5) HTN (hypertension) Code(s): I10 - ESSENTIAL (PRIMARY) HYPERTENSION Status: Chronic Qualifiers: Hypertension type: essential hypertension Qualified Code(s): I10 - Essential (primary) hypertension (6) Tobacco abuse Code(s): Z72.0 - TOBACCO USE Status: Chronic (7) Cardiomyopathy Code(s): I42.9 - CARDIOMYOPATHY, UNSPECIFIED Status: Suspected Qualifiers: Cardiomyopathy type: ischemic Qualified Code(s): I25.5 - Ischemic cardiomyopathy - Plan pt agrees for cath in am, discussed in detail about procedure -: change solumedrol to prednisone x 3 days and dc -: continue duonebs, asp, coreg, lisinopril and iv lasix x3 more doses -: hemostable -: to ambulate as tolerated, change status to inpatient * . Review of Systems - Medications/Allergies Allergies/Adverse Reactions: Allergies Allergy/AdvReac Type Severity Reaction Status Date / Time No Known Allergies Allergy Verified 05/21/18 15:39 Medications: Current Medications Acetaminophen (Tylenol) 650 mg PO Q4H PRN PRN Reason: Headache/Fever/Mild Pain (1-3) Albuterol/Ipratropium (Duoneb) 3 ml NEB [id number] [facility] Last Admin: 05/22/18 06:35 Dose: 3 ml Aspirin (Aspirin Chewable) 81 mg PO DAILY [facility] Last Admin: 05/22/18 08:43 Dose: 81 mg Atorvastatin Calcium (Lipitor) 40 mg PO DAILY [facility] Last Admin: 05/22/18 08:43 Dose: 40 mg Carvedilol (Coreg) 3.125 mg PO BID [facility] Last Admin: 05/22/18 08:43 Dose: 3.125 mg Enoxaparin Sodium (Lovenox) 40 mg SC 0900 [facility] Last Admin: 05/22/18 08:49 Dose: Not Given Famotidine (Pepcid) 20 mg PO BID [facility] Last Admin: 05/22/18 08:43 Dose: 20 mg Furosemide (Lasix) 40 mg SLOW IVP 0600,1400 [facility] Last Admin: 05/22/18 06:26 Dose: 40 mg Guaifenesin/Dextromethorphan (Robitussin Dm) 15 ml PO Q4H PRN PRN Reason: Cough Levofloxacin 500 mg/ Device 100 mls @ 100 mls/hr IVPB Q24HR [facility] Last Admin: 05/21/18 17:33 Dose: 100 mls Lisinopril (Zestril) 2.5 mg PO DAILY [facility] Last Admin: 05/22/18 08:43 Dose: 2.5 mg Methylprednisolone Sodium Succinate (Solu-Medrol) 20 mg IVP Q6HR [facility] Last Admin: 05/22/18 06:23 Dose: 20 mg Senna/Docusate Sodium (Senokot S) 2 tab PO BID PRN PRN Reason: Constipation Spironolactone (Aldactone) 12.5 mg PO DAILY [facility] Last Admin: 05/22/18 08:44 Dose: 12.5 mg
[2018-05-22] MEDS: Carvedilol 6.25 MG TAB PO SCH (20:51)
[2018-05-22] MEDS: Lisinopril 5 MG TAB PO SCH (20:51)
[2018-05-23] MEDS: Furosemide 40 MG/4 ML VIAL SLOW IVP SCH (06:06)
[2018-05-23 06:52] LABS: Anion Gap 13 mmol/L (10-20); BUN (Urea Nitrogen) 26 mg/dL (8.4-25.7); Calc. Creatinine Clearance 97 mL/min (70-130); Calcium 9.4 mg/dL (7.8-10.44); Carbon Dioxide 24 mmol/L (22-29); Chloride 103 mmol/L (98-107); Estimated GFR-MDRD 88; Glucose 150 mg/dL (70-105); Potassium 4.2 mmol/L (3.5-5.1); Sodium 136 mmol/L (136-145)
[2018-05-23] MEDS ORDERED: Heparin 0 ML ONE (07:34)
[2018-05-23] MEDS: Carvedilol 6.25 MG TAB PO SCH (09:57)
[2018-05-23] MEDS: Lisinopril 5 MG TAB PO SCH (09:57)
[2018-05-23] MEDS: Atorvastatin Calcium 40 MG TAB PO SCH (09:57)
[2018-05-23] MEDS: Spironolactone 25 MG TAB PO SCH (09:58)
[2018-05-23] MEDS: Famotidine 20 MG TAB PO SCH (09:58)
[2018-05-23] MEDS: Enoxaparin Sodium 40 MG/0.4 ML SYRINGE SC SCH (09:58)
[2018-05-23] MEDS ORDERED: Carvedilol 6.25 MG TAB PO SCH (10:51)
[2018-05-23] MEDS: Guaifenesin DM 100-10/5 ML UDCUP PO PRN ×2 (12:45→16:16)
[2018-05-23 16:14] VITALS: BP 153/88; TEMP 98.6
--- NOTE | 2018-05-23 16:18 | PDOC.PN ---
- Subjective Encounter Start Date: 05/23/18 Encounter Start Time: 10:45 Subjective: he has refused to have cath despite counselling done yest -: no chest pain or sob or palp -: has dry cough - Objective Resuscitation Status - Order Detail: 05/21/18 15:15 Resuscitation Status Routine Resuscitation Status: FULL: Full Resuscitation Discussed with: POA: sister Ms.Agnes Shane BETANCUR Reviewed: Yes Vital Signs & Weight: Vital Signs (12 hours) Temp Pulse Resp BP BP Pulse Ox 05/23/18 16:13 98.6 F 81 16 153/88 H 94 L 05/23/18 15:20 64 16 05/23/18 12:52 97.6 F 82 16 151/93 H 96 05/23/18 08:00 97.9 F 90 18 145/96 H 95 05/23/18 07:44 102 H 16 05/23/18 06:15 97.7 F 74 20 141/92 H 92 L Weight Weight 195 lb 3.2 oz I&O: 05/22/18 05/23/18 05/24/18 06:59 06:59 06:59 Intake Total 1025 1150 Output Total 775 2600 Balance 250 -1450 Result Diagrams: 05/22/18 05:42 05/23/18 06:05 Phys Exam - Physical Examination HEENT: PERRLA, moist MMs Neck: no JVD, supple Respiratory: no wheezing, no rales Cardiovascular: RRR, no significant murmur Gastrointestinal: soft, non-tender, positive bowel sounds Musculoskeletal: no edema, pulses present Neurological: non-focal, moves all 4 limbs Psychiatric: normal affect, A&O x 3 Dx/Plan (1) Acute exacerbation of congestive heart failure Code(s): I50.9 - HEART FAILURE, UNSPECIFIED Status: Acute Qualifiers: Heart failure type: systolic Qualified Code(s): I50.23 - Acute on chronic systolic (congestive) heart failure Comment: ef of around 15% (2) PNA (pneumonia) Code(s): J18.9 - PNEUMONIA, UNSPECIFIED ORGANISM Status: Acute Qualifiers: Pneumonia type: due to unspecified organism Laterality: right Lung location: lower lobe of lung Qualified Code(s): J18.1 - Lobar pneumonia, unspecified organism (3) COPD exacerbation Code(s): J44.1 - CHRONIC OBSTRUCTIVE PULMONARY DISEASE W (ACUTE) EXACERBATION Status: Acute (4) HLD (hyperlipidemia) Code(s): E78.5 - HYPERLIPIDEMIA, UNSPECIFIED Status: Chronic Qualifiers: Hyperlipidemia type: unspecified Qualified Code(s): E78.5 - Hyperlipidemia , unspecified (5) HTN (hypertension) Code(s): I10 - ESSENTIAL (PRIMARY) HYPERTENSION Status: Chronic Qualifiers: Hypertension type: essential hypertension Qualified Code(s): I10 - Essential (primary) hypertension (6) Tobacco abuse Code(s): Z72.0 - TOBACCO USE Status: Chronic (7) Cardiomyopathy Code(s): I42.9 - CARDIOMYOPATHY, UNSPECIFIED Status: Suspected Qualifiers: Cardiomyopathy type: ischemic Qualified Code(s): I25.5 - Ischemic cardiomyopathy - Plan hemostable -: dc pt home, meds optimized, off antibiotics on dc -: counselled reg f/u with if he changed his mind for cath -: cm will be helping with meds for outpt use * .
--- NOTE | 2018-05-23 18:23 | DIS ---
DATE OF ADMISSION: 05/21/2018 DATE OF DISCHARGE: 05/23/2018 DISCHARGE DISPOSITION: Home. PRIMARY DISCHARGE DIAGNOSES: Congestive heart failure exacerbation, AHA stage B with ejection fraction of 10% to 15%; acute chronic obstructive pulmonary disease exacerbation with suspected pneumonia, resolved. SECONDARY DISCHARGE DIAGNOSES: Hypertension, dyslipidemia, tobacco abuse, possible ischemic cardiomyopathy. PROCEDURES DONE DURING HOSPITALIZATION: Chest x-ray done on the day of admission showed a possible right lower lobe infiltrate. Echo with 2D Doppler showed an ejection fraction of 10% to 15%, markedly enlarged right atrial size, left ventricular size is moderately increased, severe mitral regurgitation, and [id number] tricuspid regurgitation. Blood cultures x2, no growth. Respiratory cultures grew normal respiratory jerzy. White count of 7, H and H of 14 and 44, platelet count 351. Discharge BUN and creatinine are 26 and 1.0. BNP 1817. Troponin I was indeterminate, peaking up to 0.04. CK-MB 4.8. DISCHARGE MEDICATION: 1. Aspirin 81 mg p.o. daily. 2. Coreg 12.5 mg twice daily. 3. Lisinopril 5 mg twice daily. 4. Spironolactone 12.5 mg p.o. daily. 5. Lasix 20 mg daily. 6. Atorvastatin 40 mg p.o. daily. 7. Albuterol inhaler q.6 hourly p.r.n. 8. Symbicort inhaler was offered, but the patient has refused due to inability to buy the same. ALLERGIES: NO KNOWN DRUG ALLERGIES. INPATIENT CONSULT: Dr. Mcclain/Dr. Santa for Cardiology. DISCHARGE PLAN: The patient to follow up with [facility] as advised, Dr. Santa as advised, and primary care physician in 1 week. BRIEF COURSE: During hospitalization, the patient initially got admitted on the with complaints of shortness of breath, cough with expectoration, and wheezing. He also had severe orthopnea. The patient had known history of low ejection fraction in the past, in May 2017 and had refused coronary angiogram. He was essentially admitted for acute CHF exacerbation, acute COPD exacerbation with suspicion for possible right lung pneumonia. He had gentle diuresis done and was on steroids and bronchodilators. He was also placed on empiric Levaquin. The patient has responded well to above measures. The patient was counseled on all the days during his stay here to get an angiogram for risk stratification. The patient initially agreed and finally he refused to have one done. He has also refused LifeVest due to financial reasons. The patient has been counseled regarding medication compliance and follow up with primary care physician and Dr. Santa. He is clearly aware of poor prognosis if the patient continues to be noncompliant. He was also counseled regarding smoking cessation. He was offered a long-acting bronchodilator with steroids, but the patient again has no financial resources and has clearly stated he cannot afford and will not buy one. Case Management was involved for medication assistance. Please see a [id number] documentation on [facility] for the day of discharge. Job ID: [id number]
--- NOTE | 2018-05-24 13:47 | EKG ---
Test Reason : SOB Blood Pressure : / mmHG Vent. Rate : 099 BPM Atrial Rate : 099 BPM P-R Int : 184 ms QRS Dur : 078 ms QT Int : 354 ms P-R-T Axes : 059 046 212 degrees QTc Int : 454 ms Normal sinus rhythm T wave abnormality, consider inferolateral ischemia Abnormal ECG T wave inversions V5-V6 seen on old EKG of 05/13/2017 Confirmed by ITZEL CAMPA ([id number]), editor department COLLEEN FRASER ([id number]) on 05/24/2018 1:47:33 PM Referred By: Confirmed By:ITZEL CAMPA
== END 2018-05-23 17:48 | disposition home or self-care (01) | DRG 291 ==
LOC: ERS 10:40 → OBSVTOIN 12:50 → 2SW 12:50 → 2NO 05-23 06:23
PROVIDERS: ADMIT Internal Medicine; ATTEND Internal Medicine
DX: I11.0 Hypertensive heart disease with heart failure (principal); J18.1 Lobar pneumonia, unspecified organism; J44.0 Chronic obstructive pulmonary disease with (acute) lower respiratory infection; J44.1 Chronic obstructive pulmonary disease with (acute) exacerbation; E78.5 Hyperlipidemia, unspecified; F17.210 Nicotine dependence, cigarettes, uncomplicated; I25.5 Ischemic cardiomyopathy; I50.23 Acute on chronic systolic (congestive) heart failure; Z91.14 Patient's other noncompliance with medication regimen
CPT/HCPCS: 36415; 71045; 80048; 80053; 82553; 83690; 83880; 84443; 84484; 85025; 87040; 87070; 87205; 93005; 93306; 93798; 94640; 96365; 96366; 96375; J1644; J1650; J1940; J1956; J2920; J2930; J3370; J7620

== ENCOUNTER 2019-07-05 19:30 | Inpatient (IN) | payer SELFPAY ==
[~2019-07-05 19:30] MED LIST: Iopamidol-370 76% 500 ML 1 ML ONE
[2019-07-05 19:54] LABS: #Basophils 0.1 thou/uL (0.0-0.2); #Lymphocytes 0.9 thou/uL (1.20-3.40); #Monocytes 0.6 thou/uL (0.11-0.59); %Basophils 1.3 % (0.0-1.0); %Eosinophils 0.7 % (0.0-10.0); %Lymphocytes 13.2 % (21.0-51.0); %Monocytes 8.6 % (0.0-10.0); %Neutrophils 76.2 % (42.0-75.0); Hemoglobin 14.4 g/dL (14.0-18.0); Mean Corpuscular HGB CONC 31.3 g/dL (32.0-36.0); Mean Corpuscular Hemoglobin 29.1 pg (27.0-31.0); Mean Corpuscular Volume 92.9 fL (78.0-98.0); Mean Platelet Volume 8.7 fL (7.4-10.4); Platelet Count 293 thou/uL (130-400); RBC Distribution Width 12.6 % (11.5-14.5); Red Blood Cell (RBC) Count 4.97 mill/uL (4.70-6.10); White Blood Cell (WBC) Count 6.6 thou/uL (4.8-10.8)
[2019-07-05 20:12] LABS: ALT (SGPT) 30 U/L (8-55); AST (SGOT) 31 U/L (5-34); Albumin 3.8 g/dL (3.5-5.0); Alkaline Phosphatase 102 U/L (40-110); Anion Gap 14 mmol/L (10-20); BUN (Urea Nitrogen) 17 mg/dL (8.4-25.7); Bilirubin, Total 1.2 mg/dL (0.2-1.2); CK (CPK) 152 U/L (30-200); Calc. Creatinine Clearance 0 mL/min (70-130); Calcium 8.9 mg/dL (7.8-10.44); Carbon Dioxide 25 mmol/L (22-29); Chloride 105 mmol/L (98-107); Estimated GFR-MDRD 78; Globulin 2.9 g/dL (2.4-3.5); Glucose 96 mg/dL (70-105); Lipase 14 U/L (8-78); Potassium 4.6 mmol/L (3.5-5.1); Protein, Total 6.7 g/dL (6.0-8.3); Sodium 139 mmol/L (136-145)
[2019-07-05 20:16] LABS: CKMB 3.8 ng/mL (0-6.6)
--- NOTE | 2019-07-05 20:33 | RAD ---
SINGLE VIEW OF THE CHEST: Comparison: 05-21-18 History: Cough, wheezing, shortness of breath. FINDINGS: Single view of the chest shows an enlarged but stable cardiomediastinal silhouette. There is no evide nce of consolidation, mass, or pleural effusions. There is subtle opacity in the right lung base. Thi s has improved compared to the prior exam. IMPRESSION: Possible right basilar opacity. Alternatively, this could represent the patient's soft wall soft tiss ues/breasts overly the chest wall causing attenuation in this location. POS: C
--- NOTE | 2019-07-05 21:03 | CT ---
CT ANGIOGRAM THORAX WITH IV CONTRAST AND 3-D RECONSTRUCTIONS CLINICAL INDICATION: Dyspnea which is worsened over the past 2 weeks. Epigastric abdominal pain for 2 days. COMPARISON: None FINDINGS: Pulmonary arteries: No filling defects are seen in the pulmonary arteries to suggest a pulmonary embo ezequiel. Aorta: Vascular calcifications are seen in the aortic arch. Thoracic aorta is normal in caliber witho ut evidence of an aortic dissection. Lungs: Confluent airspace densities as well as interstitial prominence is seen in the right lower lob e worrisome for pneumonia. Mild reticulonodular densities are seen in the right middle lobe and left lower lobe worrisome for infectious or inflammatory process. Mild emphysematous changes are seen in each lung apex. Peribronchial thickening is seen bilaterally g reater in the lower lobes suggesting bronchitis/bronchiolitis. A small right pleural effusion is present. Mediastinum: The heart is enlarged. There are mildly prominent lymph nodes scattered in the mediastinum with largest right paratracheal l ymph node measuring 1.6 in meters in short axis dimension. These lymph nodes are probably reactive in origin. Mildly prominent soft tissue density seen in the hilar regions bilaterally also likely rel ated to bilateral hilar lymphadenopathy. The subcarinal lymph node is present measuring approximately 1.6 cm in short axis dimension. Areas of hypodensity are seen within the mediastinum in a paratracheal location which may represent several small lymph nodes in this region. Thyroid gland: Grossly within normal limits. Osseous structures: Mild degenerative changes are seen at the thoracolumbar junction. Chest wall: No abnormality visualized. Upper abdomen: Grossly normal CT appearance for phase of imaging. Gallbladder is contracted. IMPRESSION: 1. Confluent airspace densities right lower lobe with reticulonodular densities in the right middle l obe and left lower lobe. Findings are worrisome for infectious process/pneumonia. Follow-up to resolution is recommended. 2. Evidence for bronchitis/bronchiolitis greatest involving the lower lobes. 3. Tiny right pleural effusion. 4. Cardiomegaly. 5. Mediastinal and hilar lymphadenopathy which may be reactive in origin.
[2019-07-05] MEDS ORDERED: Furosemide 40 MG/4 ML VIAL ONE (21:19)
[2019-07-05] MEDS ORDERED: cefTRIAXone\\ROCEPHIN 2 GM VIAL ONE (21:19)
[2019-07-05] MEDS ORDERED: Azithromycin 500 MG VIAL ONE (21:19)
[2019-07-05] MEDS ORDERED: HYDROcodone/Acetaminophen 10/325 mg Tablet ONE (21:44)
[2019-07-05] MEDS ORDERED: methylPREDNISolone Sod Succ/PF 125 MG/2 ML VIAL ONE (21:44)
[2019-07-05 23:35] LABS: Troponin I 0.043 ng/mL (< 0.028)
[2019-07-06 02:16] LABS: Troponin I 0.057 ng/mL (< 0.028)
[2019-07-06] MEDS ORDERED: Ondansetron ODT 4 MG TAB PO PRN (07:42)
[2019-07-06] MEDS ORDERED: Bisacodyl 5 MG TAB PO PRN (07:42)
[2019-07-06] MEDS ORDERED: Loperamide HCl 2 MG CAP PO PRN (07:42)
[2019-07-06] MEDS ORDERED: Ondansetron PF 4 MG/2 ML Vial IVP PRN (07:42)
[2019-07-06] MEDS ORDERED: Calcium Carbonate 500 MG ChewTAB PO PRN (07:42)
[2019-07-06] MEDS ORDERED: HYDROcodone/Acetaminophen 5/325 mg Tablet PO PRN (07:42)
[2019-07-06] MEDS ORDERED: HYDROcodone/Acetaminophen 7.5/325 mg Tablet PO PRN (07:42)
[2019-07-06] MEDS ORDERED: Acetaminophen 325 MG TAB PO PRN (07:42)
[2019-07-06] MEDS ORDERED: cefTRIAXone Sodium 2,000 MG in Syringe 0 ML IVPB SCH (07:45)
[2019-07-06] MEDS ORDERED: cefTRIAXone\\ROCEPHIN 2 GM in Sodium Chloride 0.9% 100 ML IVPB SCH (09:00)
[2019-07-06] MEDS ORDERED: Furosemide 40 MG/4 ML VIAL SLOW IVP SCH (09:00)
[2019-07-06] MEDS ORDERED: Spironolactone 25 MG TAB PO SCH ×2 (09:30→11:45)
--- NOTE | 2019-07-06 09:53 | CON ---
DATE OF CONSULTATION: HISTORY OF PRESENT ILLNESS: The patient is an unfortunate 59-year-old gentleman with a history of severe cardiomyopathy, who presents with recurrent dyspnea and coughing. The patient has a known nonischemic cardiomyopathy. He has been admitted on several occasions with dyspnea. He has a known ejection fraction of only 30% approximately. He has a known severe reduction in left ventricular systolic function. The patient declined to undergo an invasive evaluation on several occasions. The patient was in his usual state of health when he ran out of his medications a few months ago. He has developed progressive dyspnea. He presented with lower extremity swelling. The patient denied having any chest discomfort. PAST MEDICAL HISTORY: 1. Cardiomyopathy. 2. Hypertension. 3. COPD. PAST SURGICAL HISTORY: None. SOCIAL HISTORY: Long history of tobacco abuse and former use of excessive amounts of alcohol. ALLERGIES: NO KNOWN DRUG ALLERGIES. MEDICATIONS: None. REVIEW OF SYSTEMS: Ten-point system otherwise unremarkable. PHYSICAL EXAMINATION: GENERAL: Well-developed gentleman, in no acute distress. VITAL SIGNS: Blood pressure 154/89. NECK: Showed no jugular venous distention. LUNGS: Coarse breath sounds bilateral. HEART: Regular rate and rhythm. Normal S1 and S2. No murmurs. ABDOMEN: Nondistended. EXTREMITIES: Showed mild bilateral edema. VASCULAR: Radial pulses 2+. LABORATORY DATA: Sodium 139, potassium 4.6, chloride 105, bicarbonate 25, BUN 17, creatinine 1.1. His troponin was 0.043. BNP was 2264. White blood cell count 6.6, hemoglobin 14.4, hematocrit 46.2, and platelets are 293. EKG revealed normal sinus rhythm with T-wave abnormality suggestive of ischemia. IMPRESSION AND PLAN: 1. Congestive heart failure. 2. Bronchitis. 3. History of severe cardiomyopathy. 4. Hypertension. 5. Chronic obstructive pulmonary disease. 6. Tobacco abuse. 7. History of ethanol abuse. This gentleman with a long history of nonischemic cardiomyopathy. He also has a long history of noncompliance. He has been out of his medication for the past few months. The patient will be diuresed with Lasix. He will be restarted on his cardiac medications. From a cardiac standpoint, I would recommend again that he undergo cardiac catheterization during this hospitalization. The patient also has evidence of bronchitis and is being treated with antibiotics. We will check the patient's echocardiogram and proceed with an invasive evaluation if the patient becomes agreeable. We will follow this patient with you through his hospitalization. Job ID: [id number] MTDD
[2019-07-06] MEDS: Lisinopril 5 MG TAB PO SCH ×2 (10:09→20:43)
[2019-07-06] MEDS: Carvedilol 6.25 MG TAB PO SCH ×2 (10:09→20:42)
[2019-07-06] MEDS: Aspirin Chewable 81 MG TAB PO SCH (10:09)
[2019-07-06] MEDS: Atorvastatin Calcium 40 MG TAB PO SCH (10:09)
[2019-07-06] MEDS: Furosemide 20 MG TAB PO SCH (10:09)
[2019-07-06] MEDS: Famotidine 20 MG TAB PO SCH ×2 (10:09→20:43)
[2019-07-06] MEDS: Enoxaparin Sodium 40 MG/0.4 ML SYRINGE SC SCH (10:11)
--- NOTE | 2019-07-06 17:31 | PDOC.HHP ---
Hospitalist HPI - History of Present Illness Shortness of breath History of Present Illness: 59-year-old gentleman with past medical history of congestive heart failure with reduced ejection fraction, COPD, hypertension, hyperlipidemia who presents with worsening shortness of breath. Patient has been having worsening progress and shortness of breath as he is run out of his medications. Patient denies fever chills. No sick contacts. Patient with CT angiography of the chest on admission with right lower lobe and right middle lobe pneumonia with reactive lymphadenopathy. Patient with elevated cardiac enzymes and elevated BNP suggestive of congestive heart failure. Cardiology consultation requested for further recommendations. Patient placed on pulmonary specific antibiotics. Breathing treatments. Patient admitted to medical unit with telemetry for further evaluation. Hospitalist ROS - Review of Systems All other systems reviewed; all pertinent +/- noted in HPI/Subj - Medication Medications: Active Medications Generic Name Dose Route Start Last Admin Trade Name Freq PRN Reason Stop Dose Admin Albuterol/Ipratropium 3 ml 07/06/19 11:00 07/06/19 14:43 Duoneb NEB Not Given [id number] PRINCESS Aspirin 81 mg 07/06/19 09:00 07/06/19 10:09 Aspirin Chewable PO 81 mg DAILY PRINCESS Administration Atorvastatin Calcium 40 mg 07/06/19 09:00 07/06/19 10:09 Lipitor PO 40 mg DAILY PRINCESS Administration Carvedilol 12.5 mg 07/06/19 09:00 07/06/19 10:09 Coreg PO 12.5 mg BID PRINCESS Administration Enoxaparin Sodium 40 mg 07/06/19 09:00 07/06/19 10:11 Lovenox SC Not Given [facility] Famotidine 20 mg 07/06/19 09:00 07/06/19 10:09 Pepcid PO 20 mg BID PRINCESS Administration Furosemide 20 mg 07/06/19 09:00 07/06/19 10:09 Lasix PO 20 mg DAILY PRINCESS Administration Lisinopril 5 mg 07/06/19 09:00 07/06/19 10:09 Zestril PO 5 mg BID PRINCESS Administration Sodium Chloride 10 ml 07/06/19 09:00 07/06/19 10:10 Flush - Normal Saline IVF Not Given Q12HR PRINCESS Hospitalist History - Past Medical History Source: patient, old records Cardiac: reports: CHF, HTN, Hyperlipidemia Pulmonary: reports: COPD - Family History Family History: reports: hypertension - Social History Smoking Status: Current every day smoker Tobacco Type: cigarettes Alcohol: reports: Rare, Heavy (Former heavy alcohol use) Drugs: reports: none Living Situation: With Family Domestic Violence: Negative Activity level: independent ambulation - Exam General Appearance: ill appearing Eye: PERRL ENT: normocephalic atraumatic, moist mucosa Neck: supple, symmetric, no lymphadenopathy Heart: no murmur, no gallops, no rubs Respiratory: normal chest expansion, no tachypnea, rhonchi, wheezes Gastrointestinal: soft, non-tender, non-distended, no palpable masses, no guarding, no rigidity Extremities: 1+ LE edema Skin: no lesions, no rashes Neurological: cranial nerve grossly intact, no focal deficits Musculoskeletal: generalized weakness Psychiatric: A&O x 3 Hospitalist Results - Labs Result Diagrams: 07/05/19 19:44 07/05/19 19:44 Lab results: WBC 6.6 thou/uL (4.8-10.8) 07/05/19 19:44 Hgb 14.4 g/dL (14.0-18.0) 07/05/19 19:44 Hct 46.2 % (42.0-52.0) 07/05/19 19:44 MCV 92.9 fL (78.0-98.0) 07/05/19 19:44 Plt Count 293 thou/uL (130-400) 07/05/19 19:44 Neutrophils % 76.2 % (42.0-75.0) H 07/05/19 19:44 Sodium 139 mmol/L (136-145) 07/05/19 19:44 Potassium 4.6 mmol/L (3.5-5.1) 07/05/19 19:44 Chloride 105 mmol/L (98-107) 07/05/19 19:44 Carbon Dioxide 25 mmol/L (22-29) 07/05/19 19:44 BUN 17 mg/dL (8.4-25.7) 07/05/19 19:44 Creatinine 1.17 mg/dL (0.7-1.3) 07/05/19 19:44 Glucose 96 mg/dL (70-105) 07/05/19 19:44 Lactic Acid 1.3 mmol/L (0.5-2.2) 07/05/19 21:25 Calcium 8.9 mg/dL (7.8-10.44) 07/05/19 19:44 Total Bilirubin 1.2 mg/dL (0.2-1.2) 07/05/19 19:44 AST 31 U/L (5-34) 07/05/19 19:44 ALT 30 U/L (8-55) 07/05/19 19:44 Alkaline Phosphatase 102 U/L (40-110) 07/05/19 19:44 Creatine Kinase 152 U/L (30-200) 07/05/19 19:44 CK-MB (CK-2) 3.8 ng/mL (0-6.6) 07/05/19 19:44 Troponin I 0.057 ng/mL (< 0.028) H 07/06/19 01:39 B-Natriuretic Peptide 2264.9 pg/mL (0-100) H 07/05/19 19:44 Serum Total Protein 6.7 g/dL (6.0-8.3) 07/05/19 19:44 Albumin 3.8 g/dL (3.5-5.0) 07/05/19 19:44 Lipase 14 U/L (8-78) 07/05/19 19:44 - Radiology Interpretation CT scan - chest Status: image reviewed by ak Hospitalist H&P A/P - Problem (1) Acute exacerbation of congestive heart failure Code(s): I50.9 - HEART FAILURE, UNSPECIFIED Status: Acute Qualifiers: Heart failure type: systolic Qualified Code(s): I50.23 - Acute on chronic systolic (congestive) heart failure (2) COPD exacerbation Code(s): J44.1 - CHRONIC OBSTRUCTIVE PULMONARY DISEASE W (ACUTE) EXACERBATION Status: Acute (3) PNA (pneumonia) Code(s): J18.9 - PNEUMONIA, UNSPECIFIED ORGANISM Status: Acute Qualifiers: Pneumonia type: due to unspecified organism Laterality: right Lung location: lower lobe of lung (4) HLD (hyperlipidemia) Code(s): E78.5 - HYPERLIPIDEMIA, UNSPECIFIED Status: Chronic Qualifiers: Hyperlipidemia type: unspecified Qualified Code(s): E78.5 - Hyperlipidemia , unspecified (5) HTN (hypertension) Code(s): I10 - ESSENTIAL (PRIMARY) HYPERTENSION Status: Chronic Qualifiers: Hypertension type: essential hypertension Qualified Code(s): I10 - Essential (primary) hypertension (6) Tobacco abuse Code(s): Z72.0 - TOBACCO USE Status: Chronic (7) Cardiomyopathy Code(s): I42.9 - CARDIOMYOPATHY, UNSPECIFIED Status: Suspected Qualifiers: Cardiomyopathy type: ischemic Qualified Code(s): I25.5 - Ischemic cardiomyopathy - Plan Plan: Plan: Admit to medical unit with telemetry cardiology consultation, recommendations appreciated cardiomyopathy regimen fluid restrictions Echocardiogram pulmonary specific antibiotics IV steroids breathing treatments continue home medications as able blood pressure control blood sugar control G.I. prophylaxis DVT prophylaxis
[2019-07-06] MEDS ORDERED: methylPREDNISolone Sod Succ 40 MG VIAL IVP SCH (17:45)
[2019-07-06] MEDS: Azithromycin 500 MG in Sodium Chloride 0.9% 250 ML 250 ML IVPB SCH (20:43)
[2019-07-06] MEDS: cefTRIAXone\\ROCEPHIN 2 GM in Sodium Chloride 0.9% 100 ML IVPB SCH (21:52)
[2019-07-07 05:12] LABS: Anion Gap 9 mmol/L (10-20); BUN (Urea Nitrogen) 26 mg/dL (8.4-25.7); Calc. Creatinine Clearance 101 mL/min (70-130); Calcium 8.7 mg/dL (7.8-10.44); Carbon Dioxide 27 mmol/L (22-29); Chloride 107 mmol/L (98-107); Estimated GFR-MDRD Greater than 90; Glucose 166 mg/dL (70-105); Potassium 4.7 mmol/L (3.5-5.1); Sodium 138 mmol/L (136-145)
[2019-07-07 05:29] LABS: Band 2 % (5-11); Hemoglobin 13.7 g/dL (14.0-18.0); Hypochromia SLIGHT = 6-15 cells (100X) (0-5/hpf); Lymphocytes 5 % (21-51); MDiff Complete? YES; Mean Corpuscular HGB CONC 32.4 g/dL (32.0-36.0); Mean Corpuscular Hemoglobin 30.1 pg (27.0-31.0); Mean Corpuscular Volume 92.8 fL (78.0-98.0); Mean Platelet Volume 8.8 fL (7.4-10.4); Monocytes 2 % (0-10); Neutrophil 91 % (42-75); Platelet Count 303 thou/uL (130-400); Platelet Morphology Comment Appears Adequate; RBC Distribution Width 12.4 % (11.5-14.5); Red Blood Cell (RBC) Count 4.55 mill/uL (4.70-6.10); White Blood Cell (WBC) Count 10.8 thou/uL (4.8-10.8)
[2019-07-07] MEDS ORDERED: Labetalol HCl 100 MG/20 ML VIAL SLOW IVP PRN (08:15)
[2019-07-07] MEDS ORDERED: diphenhydrAMINE 25 MG CAP PO PRN (08:15)
[2019-07-07] MEDS ORDERED: Melatonin 3 MG TAB PO PRN (08:15)
[2019-07-07] MEDS ORDERED: Phenergan/Codeine 10-6.25mg/5ml UDCUP PO PRN (08:17)
[2019-07-07] MEDS: Lisinopril 5 MG TAB PO SCH ×2 (09:02→20:46)
[2019-07-07] MEDS: Furosemide 20 MG TAB PO SCH (09:02)
[2019-07-07] MEDS: Aspirin Chewable 81 MG TAB PO SCH (09:02)
[2019-07-07] MEDS: Atorvastatin Calcium 40 MG TAB PO SCH (09:02)
[2019-07-07] MEDS: Carvedilol 6.25 MG TAB PO SCH ×2 (09:02→20:45)
[2019-07-07] MEDS: Spironolactone 25 MG TAB PO SCH (09:03)
[2019-07-07] MEDS: methylPREDNISolone Sod Succ 40 MG VIAL IVP SCH (09:03)
[2019-07-07] MEDS: Famotidine 20 MG TAB PO SCH ×2 (09:03→20:46)
[2019-07-07] MEDS: Benzonatate 100 MG CAP PO PRN (09:08)
[2019-07-07] MEDS: Enoxaparin Sodium 40 MG/0.4 ML SYRINGE SC SCH (09:15)
[2019-07-07 11:43] LABS: #Lymphocytes 0.7 thou/uL (1.20-3.40); #Monocytes 0.4 thou/uL (0.11-0.59); #Neutrophils 9.2 thou/uL (1.40-6.50); %Basophils 0.1 % (0.0-1.0); %Eosinophils 0.3 % (0.0-10.0); %Lymphocytes 6.3 % (21.0-51.0); %Monocytes 3.8 % (0.0-10.0); %Neutrophils 89.6 % (42.0-75.0); Hemoglobin 14.5 g/dL (14.0-18.0); Mean Corpuscular HGB CONC 31.9 g/dL (32.0-36.0); Mean Platelet Volume 8.6 fL (7.4-10.4); Platelet Count 342 thou/uL (130-400); RBC Distribution Width 12.5 % (11.5-14.5); Red Blood Cell (RBC) Count 4.84 mill/uL (4.70-6.10); White Blood Cell (WBC) Count 10.3 thou/uL (4.8-10.8)
[2019-07-07 12:10] LABS: Anion Gap 11 mmol/L (10-20); BUN (Urea Nitrogen) 26 mg/dL (8.4-25.7); Calc. Creatinine Clearance 90 mL/min (70-130); Carbon Dioxide 27 mmol/L (22-29); Chloride 106 mmol/L (98-107); Estimated GFR-MDRD 89; Glucose 114 mg/dL (70-105); Potassium 4.1 mmol/L (3.5-5.1); Sodium 140 mmol/L (136-145)
--- NOTE | 2019-07-07 13:43 | PDOC.HOSPP ---
- Subjective Subjective: This a.m. on the medical unit with telemetry he is having severe coughing. He is having some productive sputum with the yellow/pink tinge to his sputum. Despite severe pneumonia he is saturating well on room air. Recommended starting cough aid. Need to continue pulmonary specific antibiotics, steroids, and breathing treatments. Patient's ejection fraction has improved to 20 to 25% . Patient is improving on maximal medical therapy. - Objective Vital Signs & Weight: Vital Signs (12 hours) Temp Pulse Resp BP BP BP Pulse Ox 07/07/19 11:52 97.6 F 75 16 122/81 97 07/07/19 09:02 70 137/84 07/07/19 07:29 70 14 07/07/19 07:09 97.6 F 60 16 118/71 93 L 07/07/19 04:02 97.7 F 72 16 104/58 L 93 L Weight Weight 181 lb 12.8 oz I&O: 07/06/19 07/07/19 07/08/19 06:59 06:59 06:59 Intake Total 1340 Output Total 700 Balance 640 Result Diagrams: 07/07/19 11:30 07/07/19 11:30 Radiology Reviewed by me: Yes Hospitalist ROS - Review of Systems All other systems reviewed; all pertinent +/- noted in HPI/Subj - Medication Medications: Active Medications Generic Name Dose Route Start Last Admin Trade Name Freq PRN Reason Stop Dose Admin Albuterol/Ipratropium 3 ml 07/06/19 11:00 07/07/19 11:02 Duoneb NEB Not Given [id number] PRINCESS Aspirin 81 mg 07/06/19 09:00 07/07/19 09:02 Aspirin Chewable PO 81 mg DAILY PRINCESS Administration Atorvastatin Calcium 40 mg 07/06/19 09:00 07/07/19 09:02 Lipitor PO 40 mg DAILY PRINCESS Administration Benzonatate 100 mg 07/07/19 08:15 07/07/19 09:08 Tessalon PO 100 mg Q4H PRN Administration Cough Carvedilol 12.5 mg 07/06/19 09:00 07/07/19 09:02 Coreg PO 12.5 mg BID PRINCESS Administration Enoxaparin Sodium 40 mg 07/06/19 09:00 07/07/19 09:15 Lovenox SC Not Given 0900 PRINCESS Famotidine 20 mg 07/06/19 09:00 07/07/19 09:03 Pepcid PO 20 mg BID PRINCESS Administration Furosemide 20 mg 07/06/19 09:00 07/07/19 09:02 Lasix PO 20 mg DAILY PRINCESS Administration Azithromycin 500 mg/ Sodium 250 mls @ 250 mls/hr 07/06/19 21:00 07/06/19 20: 43 Chloride IVPB 250 mls Q24HR PRINCESS Administration Ceftriaxone Sodium 2 gm/ 100 mls @ 100 mls/hr 07/06/19 22:00 07/06/19 21:52 Sodium Chloride IVPB 100 mls Q24HR PRINCESS Administration Lisinopril 5 mg 07/06/19 09:00 07/07/19 09:02 Zestril PO 5 mg BID PRINCESS Administration Methylprednisolone Sodium Succinate 40 mg 07/07/19 09:00 07/07/19 09:03 Solu-Medrol IVP 40 mg DAILY PRINCESS Administration Sodium Chloride 10 ml 07/06/19 09:00 07/07/19 09:03 Flush - Normal Saline IVF 10 ml Q12HR PRINCESS Administration Sodium Chloride 10 ml 07/06/19 07:46 07/06/19 18:09 Flush - Normal Saline IVF 10 ml PRN PRN Administration Saline Flush Spironolactone 25 mg 07/07/19 09:00 07/07/19 09:03 Aldactone PO 25 mg QAM PRINCESS Administration - Exam General Appearance: NAD, awake alert Eye: PERRL ENT: normocephalic atraumatic, moist mucosa Neck: supple, no lymphadenopathy Heart: no murmur, no gallops, no rubs Respiratory: no rales, normal chest expansion, no tachypnea, rhonchi, wheezes ( Severe) Gastrointestinal: soft, non-tender, no guarding, no rigidity Extremities: no edema Skin: no lesions, no rashes Neurological: cranial nerve grossly intact, no focal deficits Musculoskeletal: normal tone, normal strength Psychiatric: normal affect, normal behavior, A&O x 3 Hosp A/P (1) Acute exacerbation of congestive heart failure Code(s): I50.9 - HEART FAILURE, UNSPECIFIED Status: Acute Qualifiers: Heart failure type: systolic Qualified Code(s): I50.23 - Acute on chronic systolic (congestive) heart failure (2) COPD exacerbation Code(s): J44.1 - CHRONIC OBSTRUCTIVE PULMONARY DISEASE W (ACUTE) EXACERBATION Status: Acute (3) PNA (pneumonia) Code(s): J18.9 - PNEUMONIA, UNSPECIFIED ORGANISM Status: Acute Qualifiers: Pneumonia type: due to unspecified organism Laterality: right Lung location: lower lobe of lung (4) HLD (hyperlipidemia) Code(s): E78.5 - HYPERLIPIDEMIA, UNSPECIFIED Status: Chronic Qualifiers: Hyperlipidemia type: unspecified Qualified Code(s): E78.5 - Hyperlipidemia , unspecified (5) HTN (hypertension) Code(s): I10 - ESSENTIAL (PRIMARY) HYPERTENSION Status: Chronic Qualifiers: Hypertension type: essential hypertension Qualified Code(s): I10 - Essential (primary) hypertension (6) Tobacco abuse Code(s): Z72.0 - TOBACCO USE Status: Chronic (7) Cardiomyopathy Code(s): I42.9 - CARDIOMYOPATHY, UNSPECIFIED Status: Suspected Qualifiers: Cardiomyopathy type: ischemic Qualified Code(s): I25.5 - Ischemic cardiomyopathy - Plan Plan: medical unit with telemetry cardiology consultation, recommendations appreciated pulmonary specific antibiotics IV steroids breathing treatments cough aid on this admission it seems that a severe pneumonia he is more a play rather than CHF exacerbation. cardiomyopathy regimen echocardiogram noted fluid restrictions continue other home medications as able blood pressure control blood sugar control G.I. prophylaxis DVT prophylaxis
--- NOTE | 2019-07-07 17:16 | CON ---
DATE OF CONSULTATION: 07/07/2019 This is Marija Herrera NP dictating a report for Rodrigo Tsai MD. REASON FOR CONSULTATION: ICD consideration and longstanding cardiomyopathy, nonischemic cardiomyopathy. HISTORY OF PRESENT ILLNESS: Mr. Lynn is a 59-year-old gentleman, who is currently admitted after presenting to the hospital with worsening shortness of breath. He had run out of some of his medications approximately a month ago and he began to have dyspnea on exertion and shortness of breath that was progressive. CT angio of the chest showed a possible right middle and lower lobe pneumonia. BNP was significantly elevated at approximately 2200. Upon admission, the patient was placed on pulmonary specific antibiotics. He has been diuresed and has compensated significantly better. He has a longstanding history of cardiomyopathy that was diagnosed in 2016 while he was hospitalized. He had a treadmill stress test performed at that time, that did not suggest any ischemia. There was global hypokinesis seen on that exam. Since that time, he has been medically managed on beta-vibha and MARIFER therapy. He reports fairly good compliance with these medications. He has been offered an ICD repeatedly in the past, but has declined it up until now. We have been consulted to discuss ICD with him with his long-standing history of cardiomyopathy and a persistently reduced ejection fraction. Ejection fraction during this hospital stay remains 20% to 25%. He has not had an ejection fraction documented greater than 35% since 2016 when he was diagnosed with his cardiomyopathy. The patient denies heart racing, palpitations, chest pain, pressure, syncope, near syncope, stroke, or stroke-like symptoms. Positive for cough that is productive. Negative for fevers, chills, or malaise. Shortness of breath is resolving. REVIEW OF SYSTEMS: Twelve-point review of systems is negative except that listed above in HPI. PAST MEDICAL HISTORY: 1. 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 2. COPD. 3. Hyperlipidemia. 4. Hypertension. 5. Tobacco abuse. SURGICAL HISTORY: None. MEDICATIONS: None. ALLERGIES: NO KNOWN DRUG ALLERGIES. FAMILY HISTORY: Negative for sudden cardiac or early onset CAD. SOCIAL HISTORY: Positive for occasional alcohol use with a history of excessive alcohol intake. Positive for tobacco habituation. Negative for illicit drug use. OBJECTIVE: VITAL SIGNS: Temperature 97.6, pulse 70, blood pressure 137/84, respirations 14, and oxygen is 93% on room air. GENERAL: The patient is alert and oriented. Speech is clear. Affect is slightly anxious, though appropriate. He is in no apparent distress. Sitting upright at the edge of the bed during the time of exam. NECK: Supple without jugular venous distention. Trachea is midline. Carotids are without bruit. LUNGS: Slightly diminished on the right and clear on the left. No wheezes, crackles, or rhonchi. Respirations are even and unlabored. HEART: Rate is irregularly irregular. PMI is nonpalpable. [place] S1 and S2. ABDOMEN: Soft and nontender without palpable masses. Hepatojugular reflux is negative. EXTREMITIES: Warm and dry to touch without clubbing, cyanosis, or edema. NEUROLOGIC: Grossly intact and nonfocal. Gait is stable. DIAGNOSTIC STUDIES: Telemetry shows sinus rhythm with a single 3-second episode of bradycardia seen, which the patient was asymptomatic with. LABORATORY DATA: Creatinine 0.93 and potassium 4.7. Liver enzymes are within normal limits. Hematology: WBC 10.8, hematocrit 13.7, and platelet count is 303. Echocardiogram on 07/06/2019 shows an ejection fraction of 20% to 25% with [id number] tricuspid regurgitation, moderate mitral valve regurgitation, and ventricular hypertrophy. IMPRESSION: 1. Nonischemic cardiomyopathy, possibly from prior excessive alcohol consumption, longstanding despite medical management for over 3 years, ejection fractions remain less than 35%. 2. Bronchitis versus possible pneumonia. 3. Hypertension. 4. Chronic obstructive pulmonary disease. 5. Tobacco habituation. 6. History of alcohol abuse with continued intake, but at a lesser extent. PLAN AND RECOMMENDATIONS: Mr. Lynn is a 59-year-old gentleman with a longstanding history of nonischemic cardiomyopathy. He reports fair medical compliance with his beta-vibha and MARIFER inhibitor therapy since the time he was diagnosed in 2016. He has been followed by [facility] chronically. He does report that recently he had run out of his medications and mostly has Lasix, prompting his congestive heart failure exacerbation this day. At the time of his initial diagnosis, he did undergo a treadmill stress test that was negative and did not suggest any ischemia. With his persistently reduced ejection fraction that is not thought to be ischemic, he is a candidate for implantation of a prophylactic ICD for primary prevention. I discussed this possibility with him including the risks, benefits, and alternatives. Risks include pain, bruising, swelling, infection, pneumothorax, pericardial effusion, lead dislodgement, possible need for lead revision and/or device explant should infection incur in addition to possible need for chest tube. He will require one week of antibiotics post implant. At this point, Mr. Lynn is leaning towards having the device implanted. We will get him scheduled for tomorrow, become n.p.o. after midnight. He does voice understanding of the risks as disclosed. He has had a chance to ask questions, anticipating ICD implant tomorrow morning at [address] Erazo[address] Dr[address] Tsai has interviewed and examined the patient and agrees with the plan of care. Thank you for allowing us to participate in the care of this patient. Job ID: [id number]
[2019-07-07] MEDS: Azithromycin 500 MG in Sodium Chloride 0.9% 250 ML 250 ML IVPB SCH (20:44)
[2019-07-07] MEDS: cefTRIAXone\\ROCEPHIN 2 GM in Sodium Chloride 0.9% 100 ML IVPB SCH (21:55)
[2019-07-08 08:15] VITALS: BMI 25.8
[2019-07-08] MEDS: Spironolactone 25 MG TAB PO SCH (08:57)
[2019-07-08] MEDS: Famotidine 20 MG TAB PO SCH (08:57)
[2019-07-08] MEDS: Furosemide 20 MG TAB PO SCH (08:57)
[2019-07-08] MEDS: Aspirin Chewable 81 MG TAB PO SCH (08:57)
[2019-07-08] MEDS: Atorvastatin Calcium 40 MG TAB PO SCH (08:58)
[2019-07-08] MEDS: Carvedilol 6.25 MG TAB PO SCH (08:58)
[2019-07-08] MEDS: Lisinopril 5 MG TAB PO SCH (08:58)
[2019-07-08] MEDS: Benzonatate 100 MG CAP PO PRN (10:01)
[2019-07-08] MEDS ORDERED: Ondansetron PF 4 MG/2 ML Vial ONE (10:06)
[2019-07-08] MEDS ORDERED: Midazolam HCl 2 mg/2 ml Vial ONE (10:21)
[2019-07-08] MEDS ORDERED: Fentanyl 100 MCG/2 ML VIAL ONE ×2 (10:21→11:49)
[2019-07-08] MEDS ORDERED: Propofol 500 MG/50 ML VIAL ONE (10:29)
[2019-07-08] MEDS ORDERED: Gentamicin 80 MG/2 ML VIAL ONE (10:45)
[2019-07-08] MEDS ORDERED: CEFAZOLIN 1 GM VIAL ONE (10:45)
--- NOTE | 2019-07-08 12:51 | PDOC.BPN ---
- Brief Progress Note Post ICD implant for primary prevention of SCD in the setting of cardiomyopathy with severely reduced EF, <35% May DC home after recovery from ICD implant from EP perspective. Needs to continue keflex 500mg PO QID x 7 days upon DC and 2 week wound/device check with [facility]. Thank you
[2019-07-08] MEDS ORDERED: Cephalexin 250 MG CAP PO SCH (13:00)
[2019-07-08] MEDS: methylPREDNISolone Sod Succ 40 MG VIAL IVP SCH (13:11)
[2019-07-08 13:22] VITALS: BP 107/59; TEMP 97.7
[2019-07-08] MEDS ORDERED: Azithromycin 250 MG TAB PO SCH (21:00)
--- NOTE | 2019-07-08 23:56 | DIS ---
DATE OF ADMISSION: 07/05/2019 DATE OF DISCHARGE: 07/08/2019 DISCHARGE DIAGNOSES: 1. [id number] systolic congestive heart failure exacerbation with ejection fraction of 20% to 25%. 2. Right lower lobe bacterial pneumonia. Suspect gram-positive cocci. 3. Chronic obstructive pulmonary disease exacerbation. 4. Ischemic cardiomyopathy with ejection fraction of 20% to 25%, status post implantable cardioverter-defibrillator placement 07/08/2019. 5. Hypertension. 6. Tobacco abuse. CONSULTATIONS: 1. Dr. Jackson with Electrophysiology Service. 2. Dr. Raphael Santa with Cardiology Service. PERTINENT LABORATORY AND X-RAY FINDINGS: Creatinine ranged between 0.93-1.17, estimated GFR ranged between 78 to greater than 90. Lactic acid level 1.3. LFTs within normal limits. Troponin I ranged between 0.041 to 0.057. BNP 2265, previously 1817 on 05/21/2018. CBC showed a white blood cell count ranging between 6.6 to 10.8. Blood cultures x2 dated 07/05/2019 showed no growth at 48 hours. Influenza A and B antigen dated 07/05/2019 negative. IMAGIN. Portable chest x-ray dated 07/05/2019 showed right basilar opacity. 2. CT angiogram of the chest dated 07/05/2019, right lower lobe reticulonodular density concerning for infectious process. 3. Bronchitis/bronchiolitis involving bilateral lower lobes. 4. Cardiomegaly noted. 2D transthoracic echocardiogram dated 07/06/2019 showed ejection fraction of 20% to 25%. 5. Diastolic dysfunction noted. 6. Moderate mitral and severe tricuspid regurgitation. HOSPITAL COURSE: The patient was initially admitted after presenting with shortness of breath in the context of known congestive heart failure and chronic obstructive pulmonary disease. The patient underwent extensive evaluation including chest imaging with plain radiographs and CT modality showing evidence of infiltrate in the right middle and lower lobes concerning for pneumonia. The patient was initiated on IV antibiotic therapy with Rocephin and Zithromax. The patient also was placed on IV Solu-Medrol and given oxygen support. The patient was also treated for acute exacerbation of congestive heart failure with IV Lasix. 2D transthoracic echocardiogram was performed showing ejection fraction of 20% to 25%. Due to patient's depressed ejection fraction and cardiomyopathy, Electrophysiology Service was consulted at which point patient underwent successful placement of left upper chest wall ICD device. The patient tolerated the procedure well with stable vital signs postoperatively. Overall, the patient did remain clinically stable during the hospital course with telemetry monitoring showing a sinus mechanism. I have examined the patient the time of discharge and discussed followup instructions. The patient verbalized understanding and agreement, ready for discharge on 07/08/2019. DISCHARGE MEDICATIONS: 1. Enteric-coated aspirin 81 mg p.o. daily. 2. Lipitor 40 mg p.o. daily. 3. Zithromax 500 mg p.o. daily x7 days. 4. Tessalon Perles 100 mg p.o. q.4 hours p.r.n. cough. 5. Carvedilol 12.5 mg p.o. b.i.d. 6. Keflex 500 mg p.o. q.i.d. x7 days. 7. Lasix 20 mg p.o. daily. 8. Zestril 5 mg p.o. b.i.d. 9. Prednisone 20 mg take two tablets p.o. daily x3 days, followed by 1 tablet p.o. daily x3 days, followed by half a tablet p.o. daily x3 days. 10. Aldactone 25 mg p.o. daily. FOLLOWUP: The patient to follow up with [place], [place] 07/15/2019 at 1:45 p.m. The patient to follow up with Dr. Raphael Santa with Cardiology Service. The patient will follow up with Dr. Armin Jackson within 2 weeks of discharge. The patient will follow up with cardiac rehabilitation on 07/20/2019 at 8:00 a.m. CONDITION ON DISCHARGE: Stable. ACTIVITY: Ad-nettie. DIET: Heart healthy. CODE STATUS: Full. DISPOSITION: To home 07/08/2019. TIME SPENT: Total time preparing and coordinating discharge, 35 minutes. Job ID: [id number]
--- NOTE | 2019-07-09 07:28 | OP ---
DATE OF PROCEDURE: 07/08/2019 PROCEDURE PERFORMED: Single-chamber ICD implantation and venography. PREPROCEDURE DIAGNOSES: Chronic systolic congestive heart failure, estimated ejection fraction 25%. POSTOPERATIVE DIAGNOSES: Chronic systolic congestive heart failure, estimated ejection fraction 25%. INDICATION FOR PROCEDURE: Mr. Lynn is a 59-year-old gentleman with a history of nonischemic cardiomyopathy despite appropriate medical therapy. He presents for implantation of a single ICD. DESCRIPTION OF PROCEDURE: The patient was brought to the electrophysiology laboratory and prepped and draped in usual sterile fashion. The left prepectoral pocket was fashioned using electrocautery. Left axillary venography was performed revealing a patent axillary subclavian venous system. A single ICD lead was placed into the distal right ventricular septum. This lead showed appropriate function and was affixed to the pectoralis muscle using silk suture. The lead was connected to the ICD pulse generator. It was then placed in the pocket and pocket was closed with two layers of 2-0 Vicryl and Dermabond was used over the skin. No immediate complications were noted. Antibiotic irrigation was used prior to closure. RESULTS: The ICD lead is Medtronic 6935, 62 cm lead. R-wave 13.5, impedance 607 ohms, threshold 0.4 V at 0.5 milliseconds. High-voltage lead impedance is 61. Final programming, VVI 40, VT zone 330 milliseconds, 240 milliseconds, VF zone 300 milliseconds. IMPRESSION: Successful single-chamber ICD implantation. RECOMMENDATIONS: Mr. Lynn will be transferred back to the floor and receive a chest x-ray as well as antibiotics. Job ID: [id number]
== END 2019-07-08 15:57 | disposition home or self-care (01) | DRG 226 ==
LOC: ERS 19:30 → ERHOLD 22:52 → 2SW 07-06 07:31
PROVIDERS: ADMIT Family Medicine; ATTEND Family Medicine
PROC: 0JH608Z Insertion of Defibrillator Generator into Chest Subcutaneous Tissue and Fascia, Open Approach (ICD-10-PCS; principal; 2019-07-08)
PROC: 02HK3KZ Insertion of Defibrillator Lead into Right Ventricle, Percutaneous Approach (ICD-10-PCS; 2019-07-08)
DX: I11.0 Hypertensive heart disease with heart failure (principal); J18.9 Pneumonia, unspecified organism; J44.1 Chronic obstructive pulmonary disease with (acute) exacerbation; J44.0 Chronic obstructive pulmonary disease with (acute) lower respiratory infection; I50.23 Acute on chronic systolic (congestive) heart failure; I25.5 Ischemic cardiomyopathy; F17.210 Nicotine dependence, cigarettes, uncomplicated; E78.5 Hyperlipidemia, unspecified; Z91.14 Patient's other noncompliance with medication regimen; Z79.82 Long term (current) use of aspirin; Z79.899 Other long term (current) drug therapy
CPT/HCPCS: 36415; 36416; 71045; 71275; 80048; 80053; 82550; 82553; 83605; 83690; 83880; 84484; 85025; 87040; 87804; 93005; 93306; 93798; 94640; 94760; C1777; C1786; J0456; J0690; J0696; J1580; J1940; J2250; J2405; J2704; J2920; J2930; J3010; J3490; J7050; J7620; Q9967

== ENCOUNTER 2019-07-17 08:11 | Inpatient (IN) | payer SELFPAY ==
[2019-07-17 08:59] LABS: Mean Corpuscular HGB CONC 31.9 g/dL (32.0-36.0); Mean Corpuscular Hemoglobin 29.8 pg (27.0-31.0); Mean Corpuscular Volume 93.3 fL (78.0-98.0); Mean Platelet Volume 8.6 fL (7.4-10.4); Platelet Count 311 thou/uL (130-400); RBC Distribution Width 12.9 % (11.5-14.5); Red Blood Cell (RBC) Count 5.03 mill/uL (4.70-6.10); White Blood Cell (WBC) Count 18.3 thou/uL (4.8-10.8)
--- NOTE | 2019-07-17 09:00 | RAD ---
SINGLE VIEW CHEST: Date: 07/17/2019 COMPARISON: 07/05/2019. HISTORY: Right upper quadrant pain and shortness of breath. FINDINGS: Single view of the chest shows an enlarged but stable cardiomediastinal silhouette. A left subclavian pacemaker is seen with its tip in the right ventricle. No pneumothorax is seen. There is an infiltra te in the right lower lobe. No pleural effusion is seen. IMPRESSION: 1. Right lower lobe pneumonia. 2. Cardiomegaly. POS: TPC
[2019-07-17 09:10] LABS: Band 11 % (5-11); Lymphocytes 2 % (21-51); MDiff Complete? YES; Monocytes 5 % (0-10); Neutrophil 82 % (42-75); Platelet Morphology Comment Appears Adequate; RBC Morphology Normal
[2019-07-17 09:12] LABS: ALT (SGPT) 30 U/L (8-55); AST (SGOT) 20 U/L (5-34); Alkaline Phosphatase 101 U/L (40-110); Anion Gap 14 mmol/L (10-20); BUN (Urea Nitrogen) 15 mg/dL (8.4-25.7); Bilirubin, Total 1.4 mg/dL (0.2-1.2); Calc. Creatinine Clearance 0 mL/min (70-130); Calcium 9.1 mg/dL (7.8-10.44); Carbon Dioxide 28 mmol/L (22-29); Chloride 102 mmol/L (98-107); Estimated GFR-MDRD 84; Globulin 2.6 g/dL (2.4-3.5); Glucose 114 mg/dL (70-105); Potassium 4.5 mmol/L (3.5-5.1); Protein, Total 6.6 g/dL (6.0-8.3); Sodium 139 mmol/L (136-145)
[2019-07-17] MEDS ORDERED: Furosemide 40 MG/4 ML VIAL ONE (09:12)
[2019-07-17] MEDS ORDERED: Piperacillin/Tazobactam 4.5 GM VIAL ONE (09:12)
[2019-07-17 09:30] LABS: CKMB 2.1 ng/mL (0-6.6)
[2019-07-17] MEDS ORDERED: Vancomycin HCl 1.25 GM in Sodium Chloride 0.9% 250 ML 250 ML IVPB SCH (09:45)
[2019-07-17] MEDS ORDERED: Fentanyl 100 MCG/2 ML VIAL ONE (10:30)
[2019-07-17] MEDS ORDERED: Acetaminophen 325 MG TAB PO PRN (10:45)
[2019-07-17] MEDS ORDERED: Bisacodyl 10 MG SUPP PR PRN (10:45)
[2019-07-17] MEDS ORDERED: Ondansetron PF 4 MG/2 ML Vial IVP PRN (10:45)
[2019-07-17] MEDS ORDERED: Guaifenesin DM 100-10/5 ML UDCUP PO PRN (10:45)
[2019-07-17] MEDS ORDERED: Calcium Carbonate 500 MG ChewTAB PO PRN (10:45)
[2019-07-17] MEDS ORDERED: Senokot S 8.6-50 MG TAB PO PRN (10:45)
[2019-07-17 11:17] LABS: Bilirubin Negative (Negative); Blood, Urine Negative (Negative); Clarity Clear (Clear); Glucose, Urine (Dipstick) Normal (Negative); Leukocyte Negative Leu/uL (Negative); Nitrite Negative (Negative); Protein, Urine (Dipstick) Negative (Neg-Trace); Urobilinogen Normal mg/dL (Less than 2)
[2019-07-17] MEDS ORDERED: Morphine 4 MG/ML VIAL SLOW IVP PRN (13:30)
[2019-07-17 13:34] VITALS: BMI 26.3
[2019-07-17] MEDS ORDERED: FLU VACC QS2019-20(6MOS UP)/PF 60 MCG/0.5 ML SYRINGE IM ONE (13:45)
[2019-07-17] MEDS ORDERED: Albuterol Sulfate 2.5 mg/3 ml Neb NEB PRN (13:46)
[2019-07-17] MEDS: Furosemide 40 MG/4 ML VIAL SLOW IVP SCH (13:49)
[2019-07-17] MEDS: HYDROcodone/Acetaminophen 5/325 mg Tablet PO PRN ×3 (13:50→22:11)
--- NOTE | 2019-07-17 14:33 | HP ---
REASON FOR ADMISSION: CHF exacerbation with systolic dysfunction, pleuritic chest pain with suspected pneumonia. HISTORY OF PRESENTING ILLNESS: The patient gives history of having shortness of breath and right lower chest pain along with severe orthopnea from last 2 days. The chest pain was worse with deep inspiration and coughing. This got worse this morning, hence came to emergency room. No fever at home. The patient states he had AICD placed last week. No complaints of palpitations or PND. He normally ambulates by himself. PAST MEDICAL AND SURGICAL HISTORY: History of CHF with improved ejection fraction of around 20% to 25%, COPD, hypertension, dyslipidemia, recent AICD placed on 07/08/[address] Erazo. CURRENT MEDICATIONS: The patient is on 1. Aspirin 81 mg p.o. daily. 2. Lipitor 40 mg p.o. daily. 3. Coreg 12.5 mg p.o. twice daily. 4. Lasix 20 mg daily. 5. Lisinopril 5 mg twice daily. 6. Spironolactone 25 mg p.o. daily. ALLERGIES: NO KNOWN DRUG ALLERGIES. PERSONAL HISTORY: Smokes 5-6 cigarettes a day. Does not abuse alcohol or drugs. FAMILY HISTORY: Both parents in their 70s. Mother has had history of coronary artery disease and stroke. CODE STATUS: Full. Power of commercial litigation attorney is sister. REVIEW OF SYSTEMS: CONSTITUTIONAL: Negative for weight loss or gain, ability to conduct usual activities. SKIN: Negative for rash, itching. EYES: Negative for double vision, pain. ENT/MOUTH: Negative for nose bleeding, neck stiffness, pain, tenderness. CARDIOVASCULAR: Negative for palpitations, dyspnea on exertion, orthopnea. RESPIRATORY: Negative for shortness of breath, wheezing, cough, hemoptysis, fever or night sweats. GASTROINTESTINAL: Negative for poor appetite, abdominal pain, heartburn, nausea, vomiting, constipation, or diarrhea. GENITOURINARY: Negative for urgency, frequency, dysuria, nocturia. MUSCULOSKELETAL: Negative for pain, swelling. NEUROLOGIC/PSYCHIATRIC: Negative for anxiety, depression. ALLERGY/IMMUNOLOGIC: Negative for skin rash, bleeding tendency. PHYSICAL EXAMINATION: GENERAL: The patient is a 59-year-old male who is currently in mild to moderate pain in the right lower chest area. VITAL SIGNS: Blood pressure 134/86, pulse 100 per minute, respiratory rate 20 per minute, temperature 98.2 degrees Fahrenheit, saturating 98% on room air. NECK: Supple. No elevated JVD. HEENT: Eyes; extraocular muscles intact. Pupils reacting to light. Oral cavity, mucous membranes are moist. No exudates or congestion. CARDIOVASCULAR: S1-S2 heard, regular rhythm. RESPIRATORY: Air entry 1+ bilateral, scattered rales plus bilateral. ABDOMEN: Soft, bowel sounds heard. No tenderness, rigidity, or guarding. EXTREMITIES: No peripheral edema or calf tenderness. VASCULAR: Peripheral pulses 1+ bilateral. No ischemic ulcerations or gangrene. CENTRAL NERVOUS SYSTEM: No gross focal deficits noted. The patient is alert, awake, and oriented well. PSYCHIATRIC: Patient's mood is euthymic. No hallucinations or delusions. LABORATORY DATA: Chest x-ray done shows right lower lobe pneumonia. White count of 18, H and H 15 and 46, platelet count 311 with 82% neutrophils and 11% bands. EKG done shows sinus rhythm at 106 beats per minute. There are signs of LVH seen. BUN 15, creatinine 1.0, serum bicarb 28, serum glucose 114. BNP 1858. Albumin is 4.0. Influenza A and B antigens are negative. CLINICAL IMPRESSION AND PLAN: The patient will be admitted to telemetry for acute congestive heart failure exacerbation with systolic dysfunction. He has received Lasix in the ER and he has diuresed well with filling of entire urinal. We will continue him on 40 mg IV at 6 a.m. and 2 p.m. He also has pleuritic chest pain with questionable right lower lobe infiltrate. We will obtain consultation with Dr. Pantoja, who is on-call for Pulmonology. The patient was on steroids after his recent discharge and it is unclear if his elevated white count is related to the steroids. We will continue his aspirin, Lipitor, Coreg, lisinopril, and spironolactone as before. Morphine, Ultram, Frohna p.r.n. for pain and DuoNeb q.4 hourly, incentive spirometry. We will continue to closely monitor him on telemetry. Job ID: [id number]
--- NOTE | 2019-07-17 17:33 | CON ---
DATE OF CONSULTATION: 07/17/2019 REASON FOR CONSULTATION: Acute on chronic systolic heart failure. HISTORY OF PRESENT ILLNESS: Mr. Lynn is a 59-year-old gentleman, who recently underwent ICD implant last week. He recently presented with increased shortness of breath and chest pain. Chest pain is worse with deep breath and appears to be worse with lying flat. He was recently diagnosed with pneumonia on a chest x-ray with consolidation in the right lower lobe. Please see Dr. Herrera's full consultation for details. PHYSICAL EXAMINATION: VITAL SIGNS: Blood pressure 130/76, pulse 70, temperature 98.3. GENERAL: Patient is a pleasant male who is in no acute distress. The patient appears their stated age. NEUROLOGIC: The patient is alert and oriented x3 with no focal neurologic deficits. HEENT: Sclerae without icterus. Mouth has moist mucous membranes with normal pallor. NECK: No JVD. Carotid upstroke brisk. No bruits bilaterally. LUNGS: Clear to auscultation with unlabored respirations. BACK: No scoliosis or kyphosis. CARDIAC: Regular rate and rhythm with normal S1 and S2. No S3 or S4 noted. No significant rubs, murmurs, thrills, or gallops noted throughout the precordium. PMI is not displaced. There is no parasternal heave. ABDOMEN: Soft, nontender, nondistended. No peritoneal signs present. No hepatosplenomegaly. No abnormal striae. EXTREMITIES: 2+ femoral and 2+ dorsalis pedis pulses. No cyanosis, clubbing, or edema. SKIN: No gross abnormalities. PERTINENT LABORATORY DATA: Hemoglobin 15, hematocrit 46, creatinine 1.0. BNP of 1854. Troponin 0.04. IMPRESSION: 1. Acute on chronic systolic heart failure. 2. Chest pain. 3. Pneumonia. 4. Status post ICD. RECOMMENDATIONS: 1. Continue antibiotic therapy. 2. Continue low-dose aspirin, atorvastatin, carvedilol, and lisinopril. 3. Check echo. 4. Continue Lasix. Job ID: [id number]
[2019-07-17] MEDS ORDERED: Piperacillin/Tazobactam 4.5 GM in Sodium Chloride 0.9% 100 ML IVPB SCH (18:00)
[2019-07-17] MEDS: traMADol HCl 50 MG TAB PO PRN (19:41)
[2019-07-17] MEDS: Carvedilol 6.25 MG TAB PO SCH (22:05)
[2019-07-17] MEDS: Lisinopril 5 MG TAB PO SCH (22:06)
[2019-07-17] MEDS: predniSONE 20 MG TAB PO SCH (22:06)
[2019-07-17] MEDS: Famotidine 20 MG TAB PO SCH (22:06)
[2019-07-17] MEDS: Doxycycline 100 MG CAP PO SCH (22:10)
[2019-07-17] MEDS: Atorvastatin Calcium 40 MG TAB PO SCH (22:11)
--- NOTE | 2019-07-17 22:15 | CON ---
DATE OF CONSULTATION: 07/17/2019 HISTORY OF PRESENT ILLNESS: A 59-year-old male with a past medical history of systolic heart failure with an AICD placed 9 days ago, presents for 2 days of cough and worsening shortness of breath. The patient reports sharp lateral right side pain and back pain with deep inspiration. He reports deep inspiration makes his shortness of breath and cough worse. He also reports symptoms are worse when he lies flat or when he walks. The patient states he does not have chest pain and does not have any pain like he had in the past and got the AICD. The patient sees Dr. Santa for his Cardiology and states Dr. Jackson placed the AICD last week. Denies fevers, chills, or headaches. MEDICATIONS: 1. Tessalon 100 mg p.o. q.4 hours p.r.n. 2. Atorvastatin 40 mg p.o. daily. 3. Prednisone 20 mg p.o. q.a.m. with meals. 4. Spironolactone 25 mg p.o. q.a.m. 5. Lisinopril 5 mg p.o. b.i.d. 6. Aspirin 81 mg p.o. daily. 7. Coreg 12.5 mg p.o. b.i.d. 8. Lasix 20 mg p.o. daily. ALLERGIES: NO KNOWN DRUG ALLERGIES. PAST MEDICAL HISTORY: Significant for, 1. Congestive heart failure, heart failure with reduced ejection fraction, the last ejection fraction was on 07/06/2019. EF estimated at 20% to 25%. The patient also has diastolic dysfunction. 2. Asthma. 3. Hypertension. 4. Hyperlipidemia. 5. Tobacco abuse. PAST SURGICAL HISTORY: Significant for AICD placement 1 week ago. SOCIAL HISTORY: The patient smokes quarter pack per day and has smoked since the age of 22. He reports he has cut down from one pack per day. Denies alcohol or drug use. FAMILY HISTORY: Brother with diabetes. Denies family history of thyroid disease or cancer. REVIEW OF SYSTEMS: GENERAL: Denies fevers, chills, or headaches. HEENT: Reports intermittent vision blurring. Denies eye pain, ear pain, or auditory changes; reports rhinorrhea, congestion, and cough. LUNGS: Report cough, shortness of breath. CARDIAC: Denies chest pain. Reports right side pain and back pain, worse with inspiration. Denies palpitation. GI: Denies nausea, vomiting, diarrhea, constipation, hematochezia, or melena. : Reports polyuria. Denies dysuria or hematuria. EXTREMITIES: Report bilateral lower leg swelling, worse on the left that has improved with Lasix. MUSCULOSKELETAL: Denies joint pain or tenderness. NEUROLOGIC: Denies weakness or numbness. PSYCHIATRIC: Denies anxiety or depression. PHYSICAL EXAMINATION: GENERAL: A middle-age male, lying very still in bed, taking very shallow breaths with the eyes closed. VITAL SIGNS: Temperature 98.3, pulse 98, respirations 30, and O2 saturation is 96% on room air. HEENT: Eyes, PERRLA. EOMI. Pharynx, no erythema or exudate, positive for posterior pharyngeal drainage, positive for cervical lymphadenopathy bilaterally. No tenderness. Trachea midline. LUNGS: Decreased breath sounds to the right lung base. No crackles or wheezing. CARDIAC: Regular rate and rhythm. No murmurs. ABDOMEN: Positive bowel sounds. Soft and nontender to palpation. EXTREMITIES: 1+ pitting edema bilaterally in lower extremities. NEUROLOGIC: 5+ typewriter operator automatic strength bilaterally. Cranial nerves 2 through 12 grossly intact. PSYCHIATRIC: Alert and oriented. SKIN: Incision over AICD healing well. Tender to palpation. ASSESSMENT AND PLAN: 1. Sepsis, secondary to right lower lobe pneumonia. Continue antibiotic therapy. 2. Elevated troponin 0.04. This is at his baseline and likely secondary to his chronic systolic heart failure; type 2 ID. Continue aspirin, statin, carvedilol , and lisinopril. Repeat echo today. 3. BNP elevated to 1800s. This is improved from his last BNP. Continue diuresis with lasix and fluid restrict. Continue to monitor for signs and symptoms of fluid overload. 4. Hypertension. Continue home medication. Job ID: [id number] [facility]
--- NOTE | 2019-07-17 23:03 | CON ---
DATE OF CONSULTATION: HISTORY OF PRESENT ILLNESS: Paul Lynn is a 59-year-old gentleman, who presented to the hospital with shortness of breath and right lower lobe chest pain. His sputum is being productive of some yellow sputum. He is having difficulty breathing. He had an AICD placed and his EF was about 15% to 20%. He had similar discomfort two weeks ago in the hospital. At this time, I am going to discharge him on some antibiotics. Smoker, a pack a day. No prior history of TB, pneumonia, or bronchial asthma. Presently disabled. PAST MEDICAL HISTORY: Asthma, CHF, cardiomyopathy, ongoing tobacco abuse, and AICD in place. SOCIAL HISTORY: Pack a day. Prior to his disability, he was a tank truck driver. HOME MEDICATIONS: 1. Aldactone 25. 2. Zestril 5. 3. Lasix 20. 4. Coreg 12.5. 5. Tessalon Perles. 6. Lipitor. 7. Aspirin. SOCIAL AND FAMILY HISTORY: Unremarkable. ALLERGIES: NONE. REVIEW OF SYSTEMS: Ten-point negative. PHYSICAL EXAMINATION: VITAL SIGNS: Temperature 98, pulse 78, and respiratory rate 26, saturations are 92% on room air, and blood pressure 130/76. CHEST: Decreased breath sounds. Bilateral crackles. There is no wheezing. CARDIAC: Normal S1 and S2. No gallops. ABDOMEN: No masses. LABORATORY DATA: White count 84658, H and H 15 and 46, platelet count normal. Lytes are normal. Renal function normal. BNP is elevated. IMPRESSION: Right lower chest pain, pneumonia versus pleurisy, leukocytosis, congestive cardiomyopathy, recent AICD, ongoing tobacco abuse. He was advised to completely refrain from smoking, which he says he is going to try. I have restarted low-dose steroids. Doxycycline antibiotics initiated. Continue cardiac care. Sputum culture. Consultation note, 70 minutes, 50% direct patient care. Job ID: [id number]
[2019-07-18] MEDS: HYDROcodone/Acetaminophen 5/325 mg Tablet PO PRN ×4 (02:12→19:42)
[2019-07-18 04:52] LABS: #Basophils 0.1 thou/uL (0.0-0.2); #Lymphocytes 0.6 thou/uL (1.20-3.40); #Monocytes 0.8 thou/uL (0.11-0.59); #Neutrophils 18.1 thou/uL (1.40-6.50); %Basophils 0.4 % (0.0-1.0); %Eosinophils 0.1 % (0.0-10.0); %Lymphocytes 3.1 % (21.0-51.0); %Neutrophils 92.4 % (42.0-75.0); Hemoglobin 14.3 g/dL (14.0-18.0); Mean Corpuscular HGB CONC 32.4 g/dL (32.0-36.0); Mean Corpuscular Hemoglobin 30.1 pg (27.0-31.0); Mean Corpuscular Volume 92.8 fL (78.0-98.0); Mean Platelet Volume 9.3 fL (7.4-10.4); Platelet Count 261 thou/uL (130-400); RBC Distribution Width 12.9 % (11.5-14.5); Red Blood Cell (RBC) Count 4.75 mill/uL (4.70-6.10); White Blood Cell (WBC) Count 19.6 thou/uL (4.8-10.8)
[2019-07-18 05:23] LABS: Anion Gap 12 mmol/L (10-20); BUN (Urea Nitrogen) 15 mg/dL (8.4-25.7); Calc. Creatinine Clearance 86 mL/min (70-130); Calcium 9.1 mg/dL (7.8-10.44); Carbon Dioxide 26 mmol/L (22-29); Chloride 99 mmol/L (98-107); Estimated GFR-MDRD 83; Glucose 161 mg/dL (70-105); Potassium 4.1 mmol/L (3.5-5.1); Sodium 133 mmol/L (136-145)
[2019-07-18] MEDS: Furosemide 40 MG/4 ML VIAL SLOW IVP SCH ×2 (05:36→15:13)
[2019-07-18] MEDS: traMADol HCl 50 MG TAB PO PRN ×3 (05:41→23:11)
[2019-07-18] MEDS: Aspirin Chewable 81 MG TAB PO SCH (08:48)
[2019-07-18] MEDS: Doxycycline 100 MG CAP PO SCH ×2 (08:50→20:27)
[2019-07-18] MEDS: Carvedilol 6.25 MG TAB PO SCH (08:50)
[2019-07-18] MEDS: Famotidine 20 MG TAB PO SCH ×2 (08:50→20:27)
[2019-07-18] MEDS: Lisinopril 5 MG TAB PO SCH ×2 (08:51→20:27)
[2019-07-18] MEDS: predniSONE 20 MG TAB PO SCH ×2 (08:51→20:27)
[2019-07-18] MEDS ORDERED: Spironolactone 25 MG TAB PO SCH (09:00)
[2019-07-18] MEDS ORDERED: Enoxaparin Sodium 40 MG/0.4 ML SYRINGE SC SCH (09:00)
--- NOTE | 2019-07-18 09:20 | PDOC.CPN ---
- Subjective Date: 07/18/19 Time: 08:30 Interval history: Mr. Lynn states he is feeling much better today, was able to sleep last night lying flat for the first time in several days. Feels like his breathing has much improved, but continues to have some blood-tinged hemoptysis. Denies chest pain, shortness of breath has improved, but still winded with walking. Denies orthopnea, PND. Denies N/V/D. Had 8 beats VT per telemetry this am, short run WCT, PAT last pm. - Review of Systems Respiratory: reports: cough, shortness of breath (improved, denies further orthopnea) Cardiovascular: denies: chest pain, palpitation, edema, paroxysmal nocturnal dyspnea, orthopnea Gastrointestinal: denies: nausea, vomiting, diarrhea, constipation, abd pain, GI bleeding Musculoskeletal: denies: pain, tenderness, stiffness, swelling, arthritis/ arthralgias Neurological: denies: numbness, syncope, seizure, weakness - Objective Allergies/Adverse Reactions: Allergies Allergy/AdvReac Type Severity Reaction Status Date / Time No Known Allergies Allergy Verified 07/17/19 13:36 Visit Medications: Current Medications Acetaminophen (Tylenol) 650 mg PO Q4H PRN PRN Reason: Headache/Fever/Mild Pain (1-3) Hydrocodone Bitart/Acetaminophen (Stratton 5/325) 1 tab PO Q4H PRN PRN Reason: Mild Pain (1-3) Last Admin: 07/18/19 08:51 Dose: 1 tab Albuterol/Ipratropium (Duoneb) 3 ml NEB O2BC-RD [facility] Last Admin: 07/18/19 06:55 Dose: 3 ml Aspirin (Aspirin Chewable) 81 mg PO DAILY [facility] Last Admin: 07/18/19 08:48 Dose: 81 mg Atorvastatin Calcium (Lipitor) 40 mg PO HS [facility] Last Admin: 07/17/19 22:11 Dose: 40 mg Bisacodyl (Dulcolax) 10 mg GA DAILYPRN PRN PRN Reason: Constipation Calcium Carbonate (Tums) 1,000 mg PO Q4H PRN PRN Reason: Heartburn or Indigestion Carvedilol (Coreg) 12.5 mg PO BID [facility] Last Admin: 07/18/19 08:50 Dose: 12.5 mg Doxycycline Hyclate (Vibramycin) 100 mg PO BID [facility] Stop: 07/24/19 21:01 Last Admin: 07/18/19 08:50 Dose: 100 mg Enoxaparin Sodium (Lovenox) 40 mg SC 0900 [facility] Last Admin: 07/18/19 08:50 Dose: 40 mg Famotidine (Pepcid) 20 mg PO BID [facility] Last Admin: 07/18/19 08:50 Dose: 20 mg Furosemide (Lasix) 40 mg SLOW IVP 0600,1400 [facility] Last Admin: 07/18/19 05:36 Dose: 40 mg Guaifenesin/Dextromethorphan (Robitussin Dm) 15 ml PO Q4H PRN PRN Reason: Cough Lisinopril (Zestril) 5 mg PO BID [facility] Last Admin: 07/18/19 08:51 Dose: 5 mg Morphine Sulfate (Morphine) 4 mg SLOW IVP Q4H PRN PRN Reason: Severe Pain (7-10) Ondansetron HCl (Zofran) 4 mg IVP Q6H PRN PRN Reason: Nausea/Vomiting Prednisone (Prednisone) 20 mg PO BID [facility] Stop: 07/22/19 21:01 Last Admin: 07/18/19 08:51 Dose: 20 mg Senna/Docusate Sodium (Senokot S) 2 tab PO BIDPRN PRN PRN Reason: Constipation Sodium Chloride (Flush - Normal Saline) 10 ml IVF Q12HR [facility] Last Admin: 07/18/19 08:51 Dose: 10 ml Sodium Chloride (Flush - Normal Saline) 10 ml IVF PRN PRN PRN Reason: Saline Flush Spironolactone (Aldactone) 25 mg PO QAM [facility] Last Admin: 07/18/19 08:51 Dose: 25 mg Tramadol HCl (Ultram) 50 mg PO Q6H PRN PRN Reason: mod pain Last Admin: 07/18/19 05:41 Dose: 50 mg Vital Signs & Weight: Vital Signs Temp Pulse Resp BP BP BP Pulse Ox 07/18/19 08:51 89 07/18/19 08:50 114/73 07/18/19 07:19 98.1 F 79 18 118/73 96 07/18/19 06:55 79 14 98 07/18/19 03:44 98.1 F 80 14 110/62 92 L 07/18/19 02:07 68 12 07/17/19 23:53 98.5 F 87 14 125/79 92 L 07/17/19 22:53 81 16 Admit Weight 183 lb 10.321 oz Weight 184 lb 8 oz - Quality Measures Condition: Heart Failure CV meds: Beta Michael: Yes, MARIFER/ARB: Yes, Statin: Yes, ASA: Yes, Plavix/Effient/ Brilinta: No, Anticoagulant: No - Medication Contraindications No Antithrombotic reason: Treatment not indicated No Anticoagulant reason: Treatment not indicated - Physical Exam General: alert & oriented x3, appears well, no apparent distress HEENT: normocephaly Neck: no JVD/HJR, no bruit Cardiac: regular rate and rhythm, no murmur, S1/S2 Lungs: normal breath sounds, no wheeze, rales, rhonchi Neuro: grossly intact Abdomen: active bowel sounds, soft, non-tender Extremities: no edema - Labs Result Diagrams: 07/18/19 04:40 07/18/19 04:40 Troponin/CKMB CK-MB (CK-2) 2.1 ng/mL (0-6.6) 07/17/19 08:27 Troponin I 0.040 ng/mL (< 0.028) H 07/17/19 08:27 - Problem (1) Acute exacerbation of congestive heart failure Code(s): I50.9 - HEART FAILURE, UNSPECIFIED Qualifiers: Heart failure type: combined systolic and diastolic Qualified Code(s): I50.43 - Acute on chronic combined systolic (congestive) and diastolic ( congestive) heart failure Assessment and Plan: Volume status improving, continues to have frothy pink sputum. BNP 1800. No further orthopnea. No edema. Continue IV furosemide, likely change to PO tomorrow. Monitor electrolytes, Na+ down to 133 this am. Echocardiogram pending. (2) Cardiomyopathy Code(s): I42.9 - CARDIOMYOPATHY, UNSPECIFIED Qualifiers: Cardiomyopathy type: unspecified Qualified Code(s): I42.9 - Cardiomyopathy , unspecified Assessment and Plan: ICM, EF 20-25, ICD placed 10 days ago. Followed by EP. (3) Atypical chest pain Code(s): R07.89 - OTHER CHEST PAIN Assessment and Plan: Resolved. (4) COPD exacerbation Code(s): J44.1 - CHRONIC OBSTRUCTIVE PULMONARY DISEASE W (ACUTE) EXACERBATION (5) PNA (pneumonia) Code(s): J18.9 - PNEUMONIA, UNSPECIFIED ORGANISM Qualifiers: Pneumonia type: due to unspecified organism Laterality: right Lung location: lower lobe of lung Qualified Code(s): J18.9 - Pneumonia, unspecified organism (6) HLD (hyperlipidemia) Code(s): E78.5 - HYPERLIPIDEMIA, UNSPECIFIED Qualifiers: Hyperlipidemia type: unspecified Qualified Code(s): E78.5 - Hyperlipidemia , unspecified Assessment and Plan: Continue statin. (7) HTN (hypertension) Code(s): I10 - ESSENTIAL (PRIMARY) HYPERTENSION Qualifiers: Hypertension type: essential hypertension Qualified Code(s): I10 - Essential (primary) hypertension Assessment and Plan: Stable. Adequately controlled. (8) Tobacco abuse Code(s): Z72.0 - TOBACCO USE Assessment and Plan: Advised complete cessation. He is willing to try. (9) Hypo-osmolality and hyponatremia Code(s): E87.1 - HYPO-OSMOLALITY AND HYPONATREMIA Assessment and Plan: Monitor labs. (10) Wide-complex tachycardia Code(s): I47.2 - VENTRICULAR TACHYCARDIA Assessment and Plan: Monitor electrolytes, check Mag level. ICD in place. - Assessment/Plan Assessment/Plan: Echocardiogram pending, recent non-ischemic DIRECT MARKETING SPECIALIST. Continue IV diuretic, plan to change to PO tomorrow morning.
[2019-07-18] MEDS ORDERED: Iopamidol 370 76% 100 ML VIAL ONE (09:59)
--- NOTE | 2019-07-18 10:20 | PDOC.HOSPP ---
- Subjective Encounter Date: 07/18/19 Encounter Time: 07:40 Subjective: still is bringing up blood with sputum, no fever no c/o palp or sob he was able to sleep last night with no orthopnea lower chest pleuritic pain has resolved - Objective Vital Signs & Weight: Vital Signs (12 hours) Temp Pulse Resp BP BP BP Pulse Ox 07/18/19 08:51 89 07/18/19 08:50 114/73 07/18/19 07:19 98.1 F 79 18 118/73 96 07/18/19 06:55 79 14 98 07/18/19 03:44 98.1 F 80 14 110/62 92 L 07/18/19 02:07 68 12 07/17/19 23:53 98.5 F 87 14 125/79 92 L 07/17/19 22:53 81 16 Weight Admit Weight 183 lb 10.321 oz Weight 184 lb 8 oz I&O: 07/17/19 07/18/19 07/19/19 06:59 06:59 06:59 Intake Total 730 Output Total 2024 Balance -1295 Result Diagrams: 07/18/19 04:40 07/18/19 04:40 Hospitalist ROS - Medication Medications: Active Medications Generic Name Dose Route Start Last Admin Trade Name Freq PRN Reason Stop Dose Admin Hydrocodone Bitart/Acetaminophen 1 tab 07/17/19 13:30 07/18/19 08:51 [place] 5/325 PO 1 tab Q4H PRN Administration Mild Pain (1-3) Albuterol/Ipratropium 3 ml 07/17/19 14:30 07/18/19 06:55 Duoneb NEB 3 ml [id number] PRINCESS Administration Aspirin 81 mg 07/18/19 09:00 07/18/19 08:48 Aspirin Chewable PO 81 mg DAILY PRINCESS Administration Atorvastatin Calcium 40 mg 07/17/19 21:00 07/17/19 22:11 Lipitor PO 40 mg HS PRINCESS Administration Doxycycline Hyclate 100 mg 07/17/19 21:00 07/18/19 08:50 Vibramycin PO 07/24/19 21:01 100 mg BID PRINCESS Administration Enoxaparin Sodium 40 mg 07/18/19 09:00 07/18/19 08:50 Lovenox SC 40 mg 0900 PRINCESS Administration Famotidine 20 mg 07/17/19 21:00 07/18/19 08:50 Pepcid PO 20 mg BID PRINCESS Administration Furosemide 40 mg 07/17/19 14:00 07/18/19 05:36 Lasix SLOW IVP 40 mg 0600,1400 PRINCESS Administration Magnesium Sulfate 1 gm/ Sodium 102 mls @ 100 mls/hr 07/18/19 09:45 07/18/19 10:08 Chloride IVPB 07/18/19 13:00 102 mls NOW PRINCESS Administration Lisinopril 5 mg 07/17/19 21:00 07/18/19 08:51 Zestril PO 5 mg BID PRINCESS Administration Prednisone 20 mg 07/17/19 21:00 07/18/19 08:51 Prednisone PO 07/22/19 21:01 20 mg BID PRINCESS Administration Sodium Chloride 10 ml 07/17/19 21:00 07/18/19 08:51 Flush - Normal Saline IVF 10 ml Q12HR PRINCESS Administration Tramadol HCl 50 mg 07/17/19 13:30 07/18/19 05:41 Ultram PO 50 mg Q6H PRN Administration mod pain - Exam General Appearance: awake alert Eye: PERRL, anicteric sclera ENT: no oropharyngeal lesions, moist mucosa Neck: supple, no JVD Heart: RRR, no murmur Respiratory: no wheezes, no rales, rhonchi Gastrointestinal: soft, non-tender, normal bowel sounds Extremities: no cyanosis, no edema Neurological: cranial nerve grossly intact, no focal deficits Psychiatric: normal affect, A&O x 3 Hosp A/P (1) Acute exacerbation of congestive heart failure Code(s): I50.9 - HEART FAILURE, UNSPECIFIED Status: Acute Qualifiers: Heart failure type: combined systolic and diastolic Qualified Code(s): I50.43 - Acute on chronic combined systolic (congestive) and diastolic ( congestive) heart failure (2) Pleuritic chest pain Code(s): R07.81 - PLEURODYNIA Status: Resolved (3) HLD (hyperlipidemia) Code(s): E78.5 - HYPERLIPIDEMIA, UNSPECIFIED Status: Chronic Qualifiers: Hyperlipidemia type: unspecified Qualified Code(s): E78.5 - Hyperlipidemia , unspecified (4) HTN (hypertension) Code(s): I10 - ESSENTIAL (PRIMARY) HYPERTENSION Status: Chronic Qualifiers: Hypertension type: essential hypertension Qualified Code(s): I10 - Essential (primary) hypertension (5) PNA (pneumonia) Code(s): J18.9 - PNEUMONIA, UNSPECIFIED ORGANISM Status: Suspected Qualifiers: Pneumonia type: due to unspecified organism Laterality: right Lung location: lower lobe of lung (6) Tobacco abuse Code(s): Z72.0 - TOBACCO USE Status: Chronic (7) Cardiomyopathy Code(s): I42.9 - CARDIOMYOPATHY, UNSPECIFIED Status: Chronic Qualifiers: Cardiomyopathy type: unspecified Qualified Code(s): I42.9 - Cardiomyopathy , unspecified - Plan is on lasix, gentle diuresis, will switch to po in am has freq nonsustained wide complex tachy, has aicd, will give 1 dose 1mg mgso4, mg levels increase coreg to 25mg bid, will scale back if he gets hypotensive dc spironolactone for now CT angio chest in view of persistent hemoptysis despite having good diuresis for chf, to r/o PE continue jocelyne, asp, lipitor, nebs, doxy to ambulate in hallway as tolerated.
--- NOTE | 2019-07-18 11:48 | CT ---
CT angiogram of chest performed with intravenous contrast enhancement 3-D reconstructions HISTORY: Shortness of breath without chest pain for the past 3 days. Hemoptysis beginning this mornin g. COMPARISON: CT angiogram chest performed 07/05/2019. FINDINGS: Emphysematous changes are seen in the upper lobes. There is a worsening appearance to the g roundglass opacity with superimposed interlobular septal thickening seen within the right lower lobe more confluent parenchymal changes are extending from the right infrahilar region on this exam. A small right pleural effusion is seen. There are also parenchymal changes in the right middle lobe probably on the basis of atelectasis. There is left lower lobe atelectatic lung changes seen. Mildly prominent mediastinal nodes are similar to the prior study and are probably reactive in nature . The thoracic aorta is normal in caliber. There is good pulmonary artery opacification, there is been development of a single filling defect wi thin a subsegmental branch within the right lower lobe. Pulmonary arteries are otherwise well opacified and no additional emboli are seen. Visualized liver parenchyma shows no focal findings. IMPRESSION: 1. Worsening appearance to the right lower lobe parenchymal changes which mainly consist of groundgla ss opacity in the anterior lobular septal thickening. Given the fact that these changes are confined to the right lower lobe and infectious process such as bacterial pneumonia is still consider ed the most likely possibility. Atypical infections would be another consideration. Entities such as ARDS would be considered unlikely given the distribution. 2. Single subsegmental embolus within the right lower lobe.
--- NOTE | 2019-07-18 12:45 | PRG ---
DATE OF SERVICE: 07/18/2019 SUBJECTIVE: This morning, he is doing better, less short of breath, less cough. He is afebrile. OBJECTIVE: VITAL SIGNS: Temperature 97, pulse 77, respirations 20, saturations 98% on room air, and blood pressure 110/72. CHEST: Minimal crackles and wheezing. CARDIAC: Normal S1 and S2. No gallops. ABDOMEN: No masses. LABORATORY DATA: White count is 19,000. Sodium 133. IMAGING DATA: He had a CT chest done yesterday, which showed small pleural effusion, maybe some haziness in the lung base. I am not so sure there is actually a pneumonia. IMPRESSION: 1. Congestive heart failure. 2. Cardiomyopathy. 3. Tobacco abuse. PLAN: From a Pulmonary standpoint of view, he is stable enough to be discharged home on p.o. antibiotics, steroids. We will follow. Job ID: [id number]
[2019-07-18 15:27] LABS: INR-International Normal Ratio 1.2; PTT 28.9 SEC (22.9-36.1); Prothrombin Time 15.6 SEC (12.0-14.7)
[2019-07-18] MEDS: Carvedilol 25 MG TAB PO SCH (17:15)
[2019-07-18] MEDS: Apixaban 5 MG TAB PO SCH (20:27)
[2019-07-18] MEDS: Atorvastatin Calcium 40 MG TAB PO SCH (20:27)
[2019-07-19 05:08] LABS: Hemoglobin 13.5 g/dL (14.0-18.0); Platelet Count 287 thou/uL (130-400)
[2019-07-19] MEDS: HYDROcodone/Acetaminophen 5/325 mg Tablet PO PRN ×3 (05:36→19:26)
[2019-07-19] MEDS: Furosemide 40 MG/4 ML VIAL SLOW IVP SCH (05:36)
[2019-07-19] MEDS ORDERED: Metolazone 2.5 MG TAB PO SCH (08:30)
[2019-07-19] MEDS: Doxycycline 100 MG CAP PO SCH ×2 (08:38→20:57)
[2019-07-19] MEDS: predniSONE 20 MG TAB PO SCH ×2 (08:38→20:57)
[2019-07-19] MEDS: Apixaban 5 MG TAB PO SCH (08:38)
[2019-07-19] MEDS: Lisinopril 5 MG TAB PO SCH ×2 (08:38→20:58)
[2019-07-19] MEDS: Aspirin Chewable 81 MG TAB PO SCH (08:39)
[2019-07-19] MEDS: Carvedilol 25 MG TAB PO SCH ×2 (08:39→16:24)
[2019-07-19] MEDS: Famotidine 20 MG TAB PO SCH ×2 (08:39→20:57)
--- NOTE | 2019-07-19 11:03 | PDOC.CPN ---
- Subjective Date: 07/19/19 Time: 11:01 - Review of Systems General: denies: fever/chills, weight/appetite/sleep changes, night sweats, fatigue Respiratory: reports: cough (hemoptysis) Cardiovascular: denies: chest pain, palpitation, edema, paroxysmal nocturnal dyspnea, orthopnea Gastrointestinal: denies: nausea, vomiting, diarrhea, constipation, abd pain, GI bleeding Musculoskeletal: denies: pain, tenderness, stiffness, swelling, arthritis/ arthralgias Neurological: denies: numbness, syncope, seizure, weakness - Objective Allergies/Adverse Reactions: Allergies Allergy/AdvReac Type Severity Reaction Status Date / Time No Known Allergies Allergy Verified 07/17/19 13:36 Visit Medications: Current Medications Acetaminophen (Tylenol) 650 mg PO Q4H PRN PRN Reason: Headache/Fever/Mild Pain (1-3) Hydrocodone Bitart/Acetaminophen ([place] 5/325) 1 tab PO Q4H PRN PRN Reason: Mild Pain (1-3) Last Admin: 07/19/19 05:36 Dose: 1 tab Albuterol/Ipratropium (Duoneb) 3 ml NEB [id number] [facility] Last Admin: 07/19/19 10:38 Dose: 3 ml Apixaban (Eliquis) 10 mg PO BID [facility] Last Admin: 07/19/19 08:38 Dose: 10 mg Aspirin (Aspirin Chewable) 81 mg PO DAILY [facility] Last Admin: 07/19/19 08:39 Dose: 81 mg Atorvastatin Calcium (Lipitor) 40 mg PO HS [facility] Last Admin: 07/18/19 20:27 Dose: 40 mg Bisacodyl (Dulcolax) 10 mg CO DAILYPRN PRN PRN Reason: Constipation Calcium Carbonate (Tums) 1,000 mg PO Q4H PRN PRN Reason: Heartburn or Indigestion Carvedilol (Coreg) 25 mg PO BID-[facility] Last Admin: 07/19/19 08:39 Dose: 25 mg Doxycycline Hyclate (Vibramycin) 100 mg PO BID [facility] Stop: 07/24/19 21:01 Last Admin: 07/19/19 08:38 Dose: 100 mg Famotidine (Pepcid) 20 mg PO BID [facility] Last Admin: 07/19/19 08:39 Dose: 20 mg Furosemide (Lasix) 40 mg SLOW IVP 0600,1400 [facility] Last Admin: 07/19/19 05:36 Dose: 40 mg Guaifenesin/Dextromethorphan (Robitussin Dm) 15 ml PO Q4H PRN PRN Reason: Cough Lisinopril (Zestril) 5 mg PO BID [facility] Last Admin: 07/19/19 08:38 Dose: 5 mg Morphine Sulfate (Morphine) 4 mg SLOW IVP Q4H PRN PRN Reason: Severe Pain (7-10) Ondansetron HCl (Zofran) 4 mg IVP Q6H PRN PRN Reason: Nausea/Vomiting Prednisone (Prednisone) 20 mg PO BID [facility] Stop: 07/22/19 21:01 Last Admin: 07/19/19 08:38 Dose: 20 mg Senna/Docusate Sodium (Senokot S) 2 tab PO BIDPRN PRN PRN Reason: Constipation Sodium Chloride (Flush - Normal Saline) 10 ml IVF Q12HR [facility] Last Admin: 07/19/19 08:40 Dose: 10 ml Sodium Chloride (Flush - Normal Saline) 10 ml IVF PRN PRN PRN Reason: Saline Flush Tramadol HCl (Ultram) 50 mg PO Q6H PRN PRN Reason: mod pain Last Admin: 07/18/19 23:11 Dose: 50 mg Vital Signs & Weight: Vital Signs Temp Pulse Resp BP BP Pulse Ox 07/19/19 10:38 84 12 07/19/19 08:38 84 07/19/19 08:00 96 07/19/19 07:03 84 12 07/19/19 07:00 97.9 F 85 17 110/66 96 07/19/19 03:54 98.4 F 91 14 121/79 92 L 07/19/19 02:18 12 Admit Weight 183 lb 10.321 oz Weight 184 lb 3.2 oz - Quality Measures Condition: Heart Failure CV meds: Beta Michael: Yes, MARIFER/ARB: Yes, Statin: Yes, ASA: Yes, Plavix/Effient/ Brilinta: No, Anticoagulant: No - Medication Contraindications No Antithrombotic reason: Treatment not indicated No Anticoagulant reason: Treatment not indicated - Physical Exam General: alert & oriented x3, appears well HEENT: mucus membranes moist Neck: supple neck Cardiac: regular rate and rhythm Lungs: no wheeze, rales, rhonchi Neuro: grossly intact Abdomen: unremarkable, soft Extremities: no clubbing Skin: clear Musculoskeletal: normal range of motion - Labs Result Diagrams: 07/19/19 04:31 07/19/19 04:31 Troponin/CKMB CK-MB (CK-2) 2.1 ng/mL (0-6.6) 07/17/19 08:27 Troponin I 0.040 ng/mL (< 0.028) H 07/17/19 08:27 - Assessment/Plan Assessment/Plan: 1. Acute on chronic systolic CHF 2. New RLL PE with hemoptysis 3. Tobacco Abuse 4. s/p recent ICD 5. NSVT and PAt Patient overall much improved. Says breathing back to baseline. Now on Eliquis. BBlockers for arrhythmias. In the past patient refused LHC (see admission 2017) . If VT continues may need ischemia ruled out by angio, but now on Eliquis which complicates overall course. Will discuss options with other specialists. If no intervention planned, then ok for discharge today from my standpoint.
--- NOTE | 2019-07-19 11:14 | PDOC.HOSPP ---
- Subjective Encounter Date: 07/19/19 Encounter Time: 10:15 Subjective: hemoptysis is getting better, right lower chest pain is better now no trouble breathing, is ambulating in hallway no chest pain or palpitations - Objective Vital Signs & Weight: Vital Signs (12 hours) Temp Pulse Resp BP BP Pulse Ox 07/19/19 10:38 84 12 07/19/19 08:38 84 07/19/19 08:00 96 07/19/19 07:03 84 12 07/19/19 07:00 97.9 F 85 17 110/66 96 07/19/19 03:54 98.4 F 91 14 121/79 92 L 07/19/19 02:18 12 Weight Admit Weight 183 lb 10.321 oz Weight 184 lb 3.2 oz I&O: 07/18/19 07/19/19 07/20/19 06:59 06:59 06:59 Intake Total 730 500 Output Total 2025 600 Balance -1295 -100 Result Diagrams: 07/19/19 04:31 07/19/19 04:31 Hospitalist ROS - Medication Medications: Active Medications Generic Name Dose Route Start Last Admin Trade Name Freq PRN Reason Stop Dose Admin Hydrocodone Bitart/Acetaminophen 1 tab 07/17/19 13:30 07/19/19 05:36 [place] 5/325 PO 1 tab Q4H PRN Administration Mild Pain (1-3) Albuterol/Ipratropium 3 ml 07/17/19 14:30 07/19/19 10:38 Duoneb NEB 3 ml [id number] PRINCESS Administration Apixaban 10 mg 07/18/19 21:00 07/19/19 08:38 Eliquis PO 10 mg BID PRINCESS Administration Aspirin 81 mg 07/18/19 09:00 07/19/19 08:39 Aspirin Chewable PO 81 mg DAILY PRINCESS Administration Atorvastatin Calcium 40 mg 07/17/19 21:00 07/18/19 20:27 Lipitor PO 40 mg HS PRINCESS Administration Carvedilol 25 mg 07/18/19 17:00 07/19/19 08:39 Coreg PO 25 mg BID-WM PRINCESS Administration Doxycycline Hyclate 100 mg 07/17/19 21:00 07/19/19 08:38 Vibramycin PO 07/24/19 21:01 100 mg BID PRINCESS Administration Famotidine 20 mg 07/17/19 21:00 07/19/19 08:39 Pepcid PO 20 mg BID PRINCESS Administration Furosemide 40 mg 07/17/19 14:00 07/19/19 05:36 Lasix SLOW IVP 40 mg 0600,1400 PRINCESS Administration Lisinopril 5 mg 07/17/19 21:00 07/19/19 08:38 Zestril PO 5 mg BID PRINCESS Administration Prednisone 20 mg 07/17/19 21:00 07/19/19 08:38 Prednisone PO 07/22/19 21:01 20 mg BID PRINCESS Administration Sodium Chloride 10 ml 07/17/19 21:00 07/19/19 08:40 Flush - Normal Saline IVF 10 ml Q12HR PRINCESS Administration Tramadol HCl 50 mg 07/17/19 13:30 07/18/19 23:11 Ultram PO 50 mg Q6H PRN Administration mod pain - Exam General Appearance: awake alert Eye: PERRL, anicteric sclera ENT: no oropharyngeal lesions, moist mucosa Neck: supple, no JVD Heart: RRR, no murmur Respiratory: no wheezes, no rales, rhonchi Gastrointestinal: soft, non-tender, non-distended, normal bowel sounds Extremities: no cyanosis, no edema Neurological: cranial nerve grossly intact, no focal deficits Psychiatric: normal affect, A&O x 3 Hosp A/P (1) Acute exacerbation of congestive heart failure Code(s): I50.9 - HEART FAILURE, UNSPECIFIED Status: Acute Qualifiers: Heart failure type: combined systolic and diastolic Qualified Code(s): I50.43 - Acute on chronic combined systolic (congestive) and diastolic ( congestive) heart failure (2) Pleuritic chest pain Code(s): R07.81 - PLEURODYNIA Status: Resolved (3) HLD (hyperlipidemia) Code(s): E78.5 - HYPERLIPIDEMIA, UNSPECIFIED Status: Chronic Qualifiers: Hyperlipidemia type: unspecified Qualified Code(s): E78.5 - Hyperlipidemia , unspecified (4) HTN (hypertension) Code(s): I10 - ESSENTIAL (PRIMARY) HYPERTENSION Status: Chronic Qualifiers: Hypertension type: essential hypertension Qualified Code(s): I10 - Essential (primary) hypertension (5) PNA (pneumonia) Code(s): J18.9 - PNEUMONIA, UNSPECIFIED ORGANISM Status: Suspected Qualifiers: Pneumonia type: due to unspecified organism Laterality: right Lung location: lower lobe of lung Qualified Code(s): J18.9 - Pneumonia, unspecified organism (6) Tobacco abuse Code(s): Z72.0 - TOBACCO USE Status: Chronic (7) Cardiomyopathy Code(s): I42.9 - CARDIOMYOPATHY, UNSPECIFIED Status: Chronic Qualifiers: Cardiomyopathy type: unspecified Qualified Code(s): I42.9 - Cardiomyopathy , unspecified (8) Pulmonary embolism Code(s): I26.99 - OTHER PULMONARY EMBOLISM WITHOUT ACUTE COR PULMONALE Status : Acute Qualifiers: Pulmonary embolism type: single subsegmental (without acute cor pulmonale) Qualified Code(s): I26.93 - Single subsegmental pulmonary embolism without acute cor pulmonale - Plan is on lasix po, got one dose zaroxolyn today. freq nonsustained wide complex tachy/svt, has aicd. coreg to 25mg bid, will scale back if he gets hypotensive dc spironolactone for now eliquis 10mg bid started on 07/18/2019. continue jocelyne, asp, lipitor, nebs, doxy to ambulate in hallway as tolerated. May need cath if he continues to have arrhythmias?/aicd interrogation to see if his settings are not triggering it.
--- NOTE | 2019-07-19 13:40 | PRG ---
DATE OF SERVICE: 07/19/2019 SUBJECTIVE: Paul Lynn, who was admitted to the hospital with recurrent right-sided chest pain. His EF is 25%. This morning, he said he is feeling better. He is less short of breath and less cough. He had a CT chest done yesterday to assess his right-sided chest pain, which showed right lower lobe ground-glass opacity, pleural effusion, and a single subsegmental embolus in the right lower lobe of unknown significance. He was restarted back on his Eliquis, which I think is appropriate. I doubt his PEs of any significance at this stage in my mind. OBJECTIVE: VITAL SIGNS: This morning; his temperature 97, pulse 84, respirations 12, and saturations 97% on room air. CHEST: Decreased breath sounds without any wheezing or crackles. CARDIAC: Normal S1 and S2. No gallops. ABDOMEN: No masses. ASSESSMENT: 1. Subsegmental pulmonary emboli, right lower lobe on no significance. I doubt this is an issue. 2. Cardiomyopathy, ejection fraction 25%. 3. Right lobe pneumonia. PLAN: From Pulmonary standpoint of view, there is nothing additional to offer. Once again, his PE is not of any significance. I would not anticoagulate him because of his CT chest only because of his cardiomyopathy. Home in the next several days. Job ID: [id number]
[2019-07-19] MEDS: Furosemide 20 MG TAB PO SCH (13:53)
[2019-07-19] MEDS: Atorvastatin Calcium 40 MG TAB PO SCH (20:57)
[2019-07-20] MEDS: HYDROcodone/Acetaminophen 5/325 mg Tablet PO PRN (02:35)
[2019-07-20] MEDS ORDERED: Spironolactone 25 MG TAB PO SCH (08:30)
[2019-07-20] MEDS: Furosemide 20 MG TAB PO SCH ×2 (09:55→15:06)
[2019-07-20] MEDS: Doxycycline 100 MG CAP PO SCH (09:55)
[2019-07-20] MEDS: Famotidine 20 MG TAB PO SCH (09:56)
[2019-07-20] MEDS: predniSONE 20 MG TAB PO SCH (09:56)
[2019-07-20] MEDS: Carvedilol 25 MG TAB PO SCH ×2 (09:56→16:42)
[2019-07-20] MEDS: Aspirin Chewable 81 MG TAB PO SCH (09:56)
--- NOTE | 2019-07-20 10:31 | PRG ---
DATE OF SERVICE: 07/20/2019 SUBJECTIVE: This morning, he is better. No longer having any pleuritic chest pain. No shortness of breath. OBJECTIVE: VITAL SIGNS: Temperature 97, pulse , saturations 97% on room air, and blood pressure 122/76. CHEST: No wheezing or crackles. CARDIAC: Normal S1 and S2. No gallops. ABDOMEN: No masses. ASSESSMENT AND PLAN: 1. Right lower lobe pneumonia and pleurisy, improved. 2. Ongoing tobacco abuse. 3. Cardiomyopathy. 4. No evidence of significant pulmonary embolism. From Pulmonary standpoint of view, he does not require any anticoagulation. To note, he had a single subsegmental right lower lobe defect. In the same area, he has the infiltrate. Plan to discharge home on prednisone tapering doses and antibiotics. Follow up with the primary care physician. Disposition as per Cardiology. Job ID: [id number]
--- NOTE | 2019-07-20 14:26 | DIS ---
DATE OF ADMISSION: 07/17/2019 DATE OF DISCHARGE: 07/20/2019 PRIMARY CARE PROVIDER: [facility]. DISCHARGE DIAGNOSES: 1. Right lower lobe pneumonia. 2. Acute on chronic systolic congestive heart failure, NYHA class III. 3. Hyponatremia. 4. Cardiomyopathy. 5. Ongoing tobacco abuse. CONDITION OF PATIENT ON THE DAY OF DISCHARGE: Stable. I assessed Mr. Lynn on the day of discharge. He denies any chest pain or shortness of breath. Vital signs are stable. S1 and S2 are heard, regular. Lungs are clear to auscultation bilaterally. DISCHARGE MEDICATIONS: He has been started on 1. Potassium chloride 10 mEq daily. 2. Lasix 40 mg 2 times a day. 3. Prednisone 20 mg 2 times a day for 3 days. 4. Doxycycline 100 mg 2 times a day for 5 more days. 5. Coreg dose has been increased to 25 mg 2 times a day. The remainder of his home medications include 1. Aspirin 81 mg daily. 2. Lipitor 40 mg daily. 3. Lisinopril 5 mg 2 times a day. 4. Spironolactone 25 mg daily. 5. Tessalon p.r.n. HOSPITAL COURSE: Mr. Lynn is a pleasant 59-year-old gentleman, who was admitted to [facility] on July 17, 2019, for right lower lobe pneumonia and congestive heart failure exacerbation. CT angiogram done on July 18 showed single subsegmental embolus within the right lower lobe. He was initially treated with Eliquis. Pulmonology Service felt that this was not true pulmonary embolism. He was also having hemoptysis and anticoagulation was discontinued. He was seen by Cardiology Service for heart failure exacerbation. A 2D echocardiogram showed left ventricular ejection fraction of 20% to 25%, mildly dilated left atrium, mildly enlarged right atrium, mildly enlarged right ventricle, moderately increased left ventricular size, moderate mitral regurgitation, moderate to severe tricuspid regurgitation, elevated right ventricular systolic pressure, mild concentric left ventricular hypertrophy, restrictive filling pattern and pacer wire visualized in the right ventricle. He received intravenous diuretics. Cardiology Service had extensive discussions with him and recommended starting him on Entresto from July 21, 2019, and arranging for cardiac catheterization on July 22, 2019, after Eliquis is out of his system. After discussion with Cardiology Service, patient made an informed decision and declined to have these two things done. He has been advised to follow up with Cardiology Service as outpatient. I also discussed with him on the day of discharge about starting Entresto on July 21 and having cardiac catheterization on July 22. He made an informed decision to decline both. He wanted to go home on July 20, 2019. He is being discharged home in a stable condition. In terms of pneumonia and COPD exacerbation, he is going home with five more days of doxycycline and three more days of prednisone. He has been advised to follow up with primary care provider for final blood culture results. There was no growth at 48 hours. Many thanks for allowing me to participate in your patient's care. Please feel free to contact me with any questions or concerns. ACTIVITY: As tolerated. DIET: Heart healthy and low-sodium. POST ACUTE CARE FOLLOWUP: With primary care provider on July 22, 2019, at 9:30 am, with Dr. Santa in 2 weeks and with Cardiac Rehab in [place] and [facility] failure [facility]. Many thanks for allowing me to participate in your patient's care. Please feel free to contact me with any questions or concerns. DISCHARGE DESTINATION: Home. TIME SPENT: Total amount of time spent coordinating this discharge: 32 minutes. Job ID: [id number]
[2019-07-20 15:06] VITALS: BP 113/66; TEMP 98
[2019-07-21] MEDS ORDERED: Spironolactone 25 MG TAB PO SCH (08:00)
--- NOTE | 2019-07-22 06:24 | PQF ---
Paul Lynn DAVID [id number] CLINICAL DOCUMENTATION CLARIFICATION FORM: POST DISCHARGE Addendum to original discharge summary date: ____ Late entry note date: __ DATE: 07/22/2019 ATTN: Elvin Shahid Please exercise your independent, professional judgment in responding to the clarification form. Clinical indicators are provided on the bottom of this form for your review Please check appropriate box(s) to clarify if the following diagnosis has been ruled in or ruled out: Type 2 [place] [ X] Ruled in diagnosis [ ] Continue to treat [ X ] Resolved [ ] Ruled out diagnosis [ ] Cannot rule out diagnosis [ ] Other diagnosis [ ] Unable to determine In addition, please specify: Present on Admission (POA): [ X] Yes [ ] No [ ] Unable to determine For continuity of documentation, please document condition throughout progress notes and discharge summary. Thank You. CLINICAL INDICATORS - SIGNS / SYMPTOMS / LABS Laboratory Chemistry 07/17 CK-MB 2.1, Troponin I 0.040, BNP 1858.4 Vital signs 07/17 BP 134/88, Pulse 102, Resp 27, Temp 98.2 H&P p1 07/17 Dr Eldridge Pt gives history of having SOB and R lower chest pain along with severe orthopnea from last 2 days Consult p2 07/17 Dr Martin Elevated troponin 0.04. This is at wa baseline and likely secondary to his chronic systolic heart failure; type 2 [place] RISK FACTORS H&P p1 07/17 COPD Cardiology PN p4 07/19 Acute on chronic systolic CHF H&P p1 07/17 Smokes 5-6 cigarettes a day H&P p1 07/17 AICD status Consult p2 07/17 Right lower lobe pneumonia DS p1 07/20 - Cardiomyopathy TREATMENTS MAR 07/17 Prednisone 20mg po AUG 09 IVF 1L AUG 09 Eliquis 10MG PO AUG 09 Lipitor 40mg AUG 09 Aspirin 81mg po AUG 09 Coreg Cardiology Consult 07/17 Thompson David Consult p3 07/17 Repeat Echo (This form is maintained as a part of the permanent medical record) 2014 [employer]. All Rights Reserved [email or web address]
--- NOTE | 2019-07-22 06:26 | PQF ---
Paul Lynn DAVID [id number] CLINICAL DOCUMENTATION CLARIFICATION FORM: POST DISCHARGE Addendum to original discharge summary date: ____ Late entry note date: __ DATE: 07/22/2019 ATTN: Elvin Saleh Please exercise your independent, professional judgment in responding to the clarification form. Clinical indicators are provided on the bottom of this form for your review Please check appropriate box(s) to clarify if the following diagnosis has been ruled in or ruled out: Sepsis [ X ] Ruled in diagnosis [ ] Continue to treat [X ] Resolved [ ] Ruled out diagnosis [ ] Cannot rule out diagnosis [ ] Other diagnosis [ ] Unable to determine In addition, please specify: Present on Admission (POA): [ X ] Yes [ ] No [ ] Unable to determine For continuity of documentation, please document condition throughout progress notes and discharge summary. Thank You. CLINICAL INDICATORS - SIGNS / SYMPTOMS / LABS Laboratory 07/17 WBC 18.3, Band Neuts 82, Plt 311, Lactic acid 1.5 Vital signs 07/17 BP 134/88, Pulse 102, Resp 27, Temp 98.2 ED notes p2 07/17 SIRS Scoring: Yes patient did meet criteria H&P p1 07/17 Dr Eldridge Pt gives history of having SOB and R lower chest pain along with severe orthopnea from last 2 days H&P p1 07/17 Dr Eldridge The chest pain was worse with deep inspiration and cough H&P p2 07/17 Dr Eldridge He also had pleuritic chest pain with questionable right lower infiltrates Consult p2 07/17 Dr Martin Sepsis secondary to Right lower lobe pneumonia Microbiology 07/17 Blood Culture No growth at 48 hours Microbiology 07/17 Sputum Culture Many Normal Respiratory jerzy present RISK FACTORS H&P p1 07/17 COPD H&P p1 07/17 CHF exacerbation H&P p1 07/17 Smokes 5-6 cigarettes a day Consult p2 07/17 Right lower lobe pneumonia TREATMENTS AUG 09 IV Zosyn 4.5gm AUG 09 Prednisone 20mg po AUG 09 IVF 1L AUG 09 DuoNeb 3ml neb ED notes p2 07/17 Sepsis protocol H&P p2 07/17 Admitted to Telemetry Pulmonary consult 07/17 Hoang Fleming (This form is maintained as a part of the permanent medical record) 2014 [employer]. All Rights Reserved [email or web address]
== END 2019-07-20 17:05 | disposition home or self-care (01) | DRG 871 ==
LOC: ERS 08:11 → ERHOLD 10:41 → 2NO 13:23
PROVIDERS: ADMIT Internal Medicine; ATTEND Internal Medicine
DX: A41.9 Sepsis, unspecified organism (principal); J18.9 Pneumonia, unspecified organism; I21.A1 Myocardial infarction type 2; I50.23 Acute on chronic systolic (congestive) heart failure; E87.1 Hypo-osmolality and hyponatremia; J44.1 Chronic obstructive pulmonary disease with (acute) exacerbation; J44.0 Chronic obstructive pulmonary disease with (acute) lower respiratory infection; I47.2 Ventricular tachycardia; R04.2 Hemoptysis; I47.1 Supraventricular tachycardia; I42.9 Cardiomyopathy, unspecified; I11.0 Hypertensive heart disease with heart failure; I08.1 Rheumatic disorders of both mitral and tricuspid valves; E78.5 Hyperlipidemia, unspecified; F17.210 Nicotine dependence, cigarettes, uncomplicated; Z95.810 Presence of automatic (implantable) cardiac defibrillator; Z79.899 Other long term (current) drug therapy; Z79.82 Long term (current) use of aspirin; Z28.21 Immunization not carried out because of patient refusal
CPT/HCPCS: 36415; 71045; 71275; 80048; 80053; 81003; 82553; 82565; 83605; 83735; 83880; 84484; 85014; 85018; 85025; 85049; 85610; 85730; 87040; 87070; 87086; 87205; 87804; 93005; 93306; 94640; 96365; 96366; 96367; 96375; J1650; J1940; J2543; J3010; J3370; J3475; J3490; J7050; J7512; J7620; Q9967

== ENCOUNTER 2021-01-08 20:58 | Inpatient (IN) | payer BC, SELFPAY ==
[2021-01-08 22:26] LABS: Troponin I 2.204 ng/mL (< 0.028)
[2021-01-08 22:41] VITALS: BMI 24.5
[2021-01-09] MEDS ORDERED: Ondansetron ODT 4 MG TAB PO PRN (00:07)
[2021-01-09] MEDS ORDERED: Nitroglycerin 0.4 MG TAB (25 Tab Bottle) SL PRN (00:07)
[2021-01-09] MEDS ORDERED: Ondansetron PF 4 MG/2 ML Vial IVP PRN (00:07)
[2021-01-09] MEDS ORDERED: Acetaminophen 325 MG TAB PO PRN (00:07)
[2021-01-09] MEDS ORDERED: Acetaminophen 650 MG Suppository PR PRN (00:07)
[2021-01-09] MEDS ORDERED: Aspirin 325 MG TAB PO SCH (00:26)
[2021-01-09] MEDS ORDERED: Enoxaparin Sodium 80 MG/0.8 ML SYRINGE SC SCH ×3 (00:45→21:00)
[2021-01-09 05:00] LABS: #Eosinphils 0.3 thou/uL (0.0-0.7); #Lymphocytes 1.3 thou/uL (1.20-3.40); #Monocytes 0.5 thou/uL (0.11-0.59); #Neutrophils 4.6 thou/uL (1.40-6.50); %Basophils 0.6 % (0.0-1.0); %Eosinophils 5.1 % (0.0-10.0); %Lymphocytes 18.8 % (21.0-51.0); %Monocytes 7.7 % (0.0-10.0); %Neutrophils 67.8 % (42.0-75.0); Hemoglobin 14.7 g/dL (14.0-18.0); Mean Corpuscular HGB CONC 32.8 g/dL (32.0-36.0); Mean Corpuscular Hemoglobin 31.5 pg (27.0-31.0); Mean Corpuscular Volume 96.1 fL (78.0-98.0); Mean Platelet Volume 8.9 fL (7.4-10.4); Platelet Count 270 thou/uL (130-400); RBC Distribution Width 12.4 % (11.5-14.5); Red Blood Cell (RBC) Count 4.68 mill/uL (4.70-6.10); White Blood Cell (WBC) Count 6.8 thou/uL (4.8-10.8)
[2021-01-09 05:23] LABS: Anion Gap 10 mmol/L (10-20); BUN (Urea Nitrogen) 15 mg/dL (8.4-25.7); Calc. Creatinine Clearance 79 mL/min (70-130); Calcium 8.9 mg/dL (7.8-10.44); Carbon Dioxide 25 mmol/L (22-29); Chloride 106 mmol/L (98-107); Glucose 97 mg/dL (70-105); Sodium 137 mmol/L (136-145)
[2021-01-09] MEDS ORDERED: Spironolactone 25 MG TAB PO SCH (09:00)
[2021-01-09] MEDS ORDERED: Lisinopril 5 MG TAB PO SCH (09:00)
[2021-01-09 09:02] LABS: Anion Gap 10 mmol/L (10-20); BUN (Urea Nitrogen) 15 mg/dL (8.4-25.7); Calc. Creatinine Clearance 90 mL/min (70-130); Calcium 9.3 mg/dL (7.8-10.44); Carbon Dioxide 26 mmol/L (22-29); Chloride 107 mmol/L (98-107); Glucose 95 mg/dL (70-105); Magnesium 1.9 mg/dL (1.6-2.6); Potassium 4.4 mmol/L (3.5-5.1); Sodium 139 mmol/L (136-145)
[2021-01-09] MEDS: Carvedilol 25 MG TAB PO SCH ×2 (09:46→16:53)
[2021-01-09] MEDS: Enoxaparin Sodium 80 MG/0.8 ML SYRINGE SC SCH ×2 (09:47→21:03)
[2021-01-09 11:40] LABS: SARS-CoV-2 PCR by NAA Not Detected (NotDetected)
[2021-01-09] MEDS: Atorvastatin Calcium 40 MG TAB PO SCH (21:04)
[2021-01-10] MEDS: Carvedilol 25 MG TAB PO SCH ×2 (08:57→17:38)
[2021-01-10] MEDS: Aspirin Chewable 81 MG TAB PO SCH (08:58)
[2021-01-10] MEDS: Enoxaparin Sodium 40 MG/0.4 ML SYRINGE SC SCH (09:01)
[2021-01-10 17:11] LABS: #Eosinphils 0.3 thou/uL (0.0-0.7); #Lymphocytes 1.3 thou/uL (1.20-3.40); #Monocytes 0.5 thou/uL (0.11-0.59); #Neutrophils 3.3 thou/uL (1.40-6.50); %Basophils 0.8 % (0.0-1.0); %Lymphocytes 24.4 % (21.0-51.0); %Monocytes 8.2 % (0.0-10.0); %Neutrophils 60.7 % (42.0-75.0); Mean Corpuscular HGB CONC 32.2 g/dL (32.0-36.0); Mean Corpuscular Volume 96.2 fL (78.0-98.0); Mean Platelet Volume 8.7 fL (7.4-10.4); Platelet Count 275 thou/uL (130-400); RBC Distribution Width 12.2 % (11.5-14.5); Red Blood Cell (RBC) Count 4.84 mill/uL (4.70-6.10); White Blood Cell (WBC) Count 5.5 thou/uL (4.8-10.8)
[2021-01-10 17:24] LABS: Potassium 4.4 mmol/L (3.5-5.1)
[2021-01-10 17:53] LABS: Anion Gap 11 mmol/L (10-20); BUN (Urea Nitrogen) 14 mg/dL (8.4-25.7); Calc. Creatinine Clearance 84 mL/min (70-130); Calcium 8.9 mg/dL (7.8-10.44); Carbon Dioxide 25 mmol/L (22-29); Chloride 106 mmol/L (98-107); Glucose 121 mg/dL (70-105); Potassium 4.5 mmol/L (3.5-5.1); Sodium 137 mmol/L (136-145)
[2021-01-10] MEDS: Atorvastatin Calcium 40 MG TAB PO SCH (20:56)
[2021-01-11] MEDS: Enoxaparin Sodium 40 MG/0.4 ML SYRINGE SC SCH (08:14)
[2021-01-11] MEDS: Aspirin Chewable 81 MG TAB PO SCH (08:14)
[2021-01-11] MEDS: Carvedilol 25 MG TAB PO SCH (08:15)
[2021-01-11 09:10] LABS: Anion Gap 6 mmol/L (10-20); BUN (Urea Nitrogen) 11 mg/dL (8.4-25.7); Calc. Creatinine Clearance 101 mL/min (70-130); Calcium 8.8 mg/dL (7.8-10.44); Carbon Dioxide 30 mmol/L (22-29); Chloride 107 mmol/L (98-107); Glucose 94 mg/dL (70-105); Potassium 3.8 mmol/L (3.5-5.1); Sodium 139 mmol/L (136-145)
[2021-01-11 11:29] VITALS: BP 113/73; TEMP 97.8
[2021-01-11] MEDS ORDERED: Sacubitril 49 MG/Valsartan 51 MG TABLET PO SCH (21:00)
== END 2021-01-11 12:25 | disposition home or self-care (01) | DRG 309 ==
LOC: ERS 20:58 → 2NO 21:40
PROVIDERS: ADMIT Student in an Organized Health Care Education/Training Program; ATTEND Internal Medicine
DX: I49.01 Ventricular fibrillation (principal); I50.22 Chronic systolic (congestive) heart failure; J93.9 Pneumothorax, unspecified; I11.0 Hypertensive heart disease with heart failure; J45.909 Unspecified asthma, uncomplicated; F17.210 Nicotine dependence, cigarettes, uncomplicated; I47.2 Ventricular tachycardia; R74.8 Abnormal levels of other serum enzymes; I42.8 Other cardiomyopathies; E78.5 Hyperlipidemia, unspecified; J44.9 Chronic obstructive pulmonary disease, unspecified; Z86.711 Personal history of pulmonary embolism; Z79.82 Long term (current) use of aspirin; Z79.899 Other long term (current) drug therapy; Z91.14 Patient's other noncompliance with medication regimen; Z95.810 Presence of automatic (implantable) cardiac defibrillator
CPT/HCPCS: 36415; 71045; 71046; 80048; 80053; 82553; 83735; 84132; 84484; 85025; 93306; 94760; 97139; 99284; J1650; U0003; U0005

== ENCOUNTER 2023-01-12 17:37 | Inpatient (IN) | payer MEDICARE, OTHER ==
[2023-01-12 18:07] LABS: #Eosinphils 0.1 thou/uL (0.0-0.7); #Monocytes 0.5 thou/uL (0.11-0.59); #Neutrophils 3.2 thou/uL (1.40-6.50); %Basophils 0.6 % (0.0-1.0); %Eosinophils 2.5 % (0.0-10.0); %Lymphocytes 25.5 % (21.0-51.0); %Monocytes 9.2 % (0.0-10.0); Hemoglobin 15.5 g/dL (14.0-18.0); Mean Corpuscular HGB CONC 32.3 g/dL (32.0-36.0); Mean Corpuscular Hemoglobin 30.5 pg (27.0-31.0); Mean Corpuscular Volume 94.3 fl (78.0-98.0); Mean Platelet Volume 10.7 fL (7.4-10.4); Platelet Count 289 10x3/uL (130-400); RBC Distribution Width 13.3 % (11.5-14.5); Red Blood Cell (RBC) Count 5.09 mill/uL (4.70-6.10); White Blood Cell (WBC) Count 5.1 10x3/uL (4.8-10.8)
[2023-01-12 18:36] LABS: ALT (SGPT) 15 U/L (8-55); AST (SGOT) 17 U/L (5-34); Albumin 3.8 g/dL (3.4-4.8); Alkaline Phosphatase 86 U/L (40-110); Anion Gap 13 mmol/L (10-20); BUN (Urea Nitrogen) 19 mg/dL (8.4-25.7); Bilirubin, Total 0.6 mg/dL (0.2-1.2); Calc. Creatinine Clearance 0 mL/min (70-130); Carbon Dioxide 25 mmol/L (23-31); Chloride 106 mmol/L (98-107); Estimated GFR 61; Globulin 2.5 g/dL (2.4-3.5); Glucose 78 mg/dL (80-115); Potassium 4.6 mmol/L (3.5-5.1); Protein, Total 6.3 g/dL (5.8-8.1); Sodium 139 mmol/L (136-145)
[2023-01-12] MEDS ORDERED: Aspirin Chewable 81 MG TAB ONE (18:52)
[2023-01-12 18:57] LABS: CKMB 2.8 ng/mL (0-6.6)
[2023-01-12] MEDS ORDERED: Ondansetron ODT 4 MG TAB PO PRN (20:13)
[2023-01-12] MEDS ORDERED: Calcium Carbonate 500 MG ChewTAB PO PRN (20:13)
[2023-01-12] MEDS ORDERED: Senokot S 8.6-50 MG TAB PO PRN (20:13)
[2023-01-12] MEDS: Sacubitril 49 MG/Valsartan 51 MG TABLET PO SCH (22:34)
[2023-01-12] MEDS: Famotidine 20 MG TAB PO SCH (22:35)
[2023-01-12] MEDS: Atorvastatin Calcium 40 MG TAB PO SCH (22:35)
[2023-01-12 22:51] LABS: Magnesium 1.6 mg/dL (1.6-2.6)
[2023-01-12 22:58] LABS: Troponin I 0.037 ng/mL (< 0.028)
[2023-01-13] MEDS ORDERED: Magnesium 2 GM/50 ML(in water) 2 GM in Premix Bag 1 BAG IVPB SCH (00:15)
[2023-01-13 01:00] VITALS: BMI 25.9
[2023-01-13 04:16] LABS: #Basophils 0.1 thou/uL (0.0-0.2); #Eosinphils 0.1 thou/uL (0.0-0.7); #Monocytes 0.4 thou/uL (0.11-0.59); #Neutrophils 2.4 thou/uL (1.40-6.50); %Basophils 1.1 % (0.0-1.0); %Eosinophils 2.8 % (0.0-10.0); %Lymphocytes 34.9 % (21.0-51.0); %Monocytes 8.5 % (0.0-10.0); %Neutrophils 52.5 % (42.0-75.0); Hematocrit 45.4 % (42.0-52.0); Hemoglobin 14.7 g/dL (14.0-18.0); Mean Corpuscular HGB CONC 32.4 g/dL (32.0-36.0); Mean Corpuscular Hemoglobin 30.4 pg (27.0-31.0); Mean Platelet Volume 11.4 fL (7.4-10.4); Platelet Count 260 10x3/uL (130-400); RBC Distribution Width 13.3 % (11.5-14.5); Red Blood Cell (RBC) Count 4.83 mill/uL (4.70-6.10); White Blood Cell (WBC) Count 4.6 10x3/uL (4.8-10.8)
[2023-01-13 04:43] LABS: Anion Gap 13 mmol/L (10-20); BUN (Urea Nitrogen) 18 mg/dL (8.4-25.7); Calc. Creatinine Clearance 84 mL/min (70-130); Calcium 8.4 mg/dL (7.8-10.44); Carbon Dioxide 22 mmol/L (23-31); Chloride 105 mmol/L (98-107); Estimated GFR 79; Glucose 89 mg/dL (80-115); Sodium 136 mmol/L (136-145)
[2023-01-13 04:45] LABS: Troponin I 0.047 ng/mL (< 0.028)
[2023-01-13] MEDS: Furosemide 40 MG/4 ML VIAL SLOW IVP SCH ×2 (05:24→14:04)
[2023-01-13] MEDS ORDERED: Acetaminophen 325 MG TAB PO PRN (05:35)
[2023-01-13] MEDS: Apixaban 5 MG TAB PO SCH ×2 (08:29→21:38)
[2023-01-13] MEDS: Famotidine 20 MG TAB PO SCH ×2 (08:29→21:38)
[2023-01-13] MEDS: Carvedilol 25 MG TAB PO SCH ×3 (08:29→18:30)
[2023-01-13] MEDS: Spironolactone 25 MG TAB PO SCH (08:29)
[2023-01-13] MEDS: Empagliflozin 10 MG TAB PO SCH (08:29)
[2023-01-13] MEDS: Sacubitril 49 MG/Valsartan 51 MG TABLET PO SCH ×3 (08:30→21:37)
[2023-01-13] MEDS ORDERED: Losartan 25 MG TAB PO SCH (09:00)
[2023-01-13] MEDS: Atorvastatin Calcium 40 MG TAB PO SCH (21:38)
[2023-01-14] MEDS: Furosemide 40 MG/4 ML VIAL SLOW IVP SCH (05:09)
[2023-01-14 05:17] LABS: Anion Gap 13 mmol/L (10-20); BUN (Urea Nitrogen) 21 mg/dL (8.4-25.7); Calc. Creatinine Clearance 64 mL/min (70-130); Calcium 8.7 mg/dL (7.8-10.44); Carbon Dioxide 24 mmol/L (23-31); Chloride 105 mmol/L (98-107); Estimated GFR 57; Glucose 90 mg/dL (80-115); Potassium 3.9 mmol/L (3.5-5.1); Sodium 138 mmol/L (136-145)
[2023-01-14 07:40] VITALS: BP 137/83; TEMP 98.6
[2023-01-14] MEDS: Spironolactone 25 MG TAB PO SCH (08:11)
[2023-01-14] MEDS: Famotidine 20 MG TAB PO SCH (08:11)
[2023-01-14] MEDS: Sacubitril 49 MG/Valsartan 51 MG TABLET PO SCH (08:12)
[2023-01-14] MEDS: Empagliflozin 10 MG TAB PO SCH (08:12)
[2023-01-14] MEDS: Apixaban 5 MG TAB PO SCH (08:12)
[2023-01-14] MEDS: Carvedilol 25 MG TAB PO SCH (08:12)
== END 2023-01-14 08:59 | disposition left against medical advice (07) | DRG 314 ==
LOC: EEVIPCON 17:37 → ERS 17:37 → EEVIPCON 19:42 → 2NO 19:42
PROVIDERS: ADMIT Student in an Organized Health Care Education/Training Program; ATTEND Family Medicine
DX: T82.198A Other mechanical complication of other cardiac electronic device, initial encounter (principal); I50.43 Acute on chronic combined systolic (congestive) and diastolic (congestive) heart failure; I42.8 Other cardiomyopathies; I47.20 Ventricular tachycardia, unspecified; N17.9 Acute kidney failure, unspecified; I48.20 Chronic atrial fibrillation, unspecified; I13.0 Hypertensive heart and chronic kidney disease with heart failure and stage 1 through stage 4 chronic kidney disease, or unspecified chronic kidney disease; J44.9 Chronic obstructive pulmonary disease, unspecified; F17.210 Nicotine dependence, cigarettes, uncomplicated; N18.9 Chronic kidney disease, unspecified; R77.8 Other specified abnormalities of plasma proteins; Z95.810 Presence of automatic (implantable) cardiac defibrillator; Z79.01 Long term (current) use of anticoagulants; Y83.8 Other surgical procedures as the cause of abnormal reaction of the patient, or of later complication, without mention of misadventure at the time of the procedure
CPT/HCPCS: 36415; 71045; 80048; 80053; 82553; 83735; 83880; 84484; 85025; 93005; 96372; J1650; J1940; J3475

== ENCOUNTER 2023-07-03 23:27 | Inpatient (IN) | payer MEDICARE ==
[~2023-07-03 23:27] MED LIST changes: -Iopamidol-370 76% 500 ML 1 ML ONE; +Iopamidol-370 76% 500 ML MDV (1 ML CHARGE) ONE
[2023-07-04 00:14] LABS: Bacteria/HPF None Seen HPF (None Seen); Bilirubin Negative (Negative); Blood, Urine Negative (Negative); CAUTI Indications for Culture Alt mental st,lethar; Clarity Clear (Clear); Glucose, Urine (Dipstick) Normal (Negative); Ketone, Urine Negative (Negative); Leukocyte Negative Leu/uL (Negative); Nitrite Negative (Negative); Protein, Urine (Dipstick) Negative (Neg-Trace); RBC/HPF 0-3 HPF (0-3); Specific Gravity, Urine 1.007 (1.002-1.036); Squamous Epithelial None Seen HPF (0-3); Urobilinogen Normal mg/dL (Less than 2); WBC/HPF 0-3 HPF (0-3)
[2023-07-04 00:17] LABS: Urine Culture Reflex No No
[2023-07-04 00:23] LABS: #Monocytes 0.4 thou/uL (0.11-0.59); #Neutrophils 3.9 thou/uL (1.40-6.50); %Basophils 0.6 % (0.0-1.0); %Eosinophils 0.8 % (0.0-10.0); %Lymphocytes 17.9 % (21.0-51.0); %Monocytes 6.7 % (0.0-10.0); %Neutrophils 73.6 % (42.0-75.0); Hematocrit 45.3 % (42.0-52.0); Hemoglobin 14.8 g/dL (14.0-18.0); Mean Corpuscular HGB CONC 32.7 g/dL (32.0-36.0); Mean Corpuscular Hemoglobin 29.5 pg (27.0-31.0); Mean Corpuscular Volume 90.2 fl (78.0-98.0); Mean Platelet Volume 10.9 fL (7.4-10.4); Platelet Count 275 10x3/uL (130-400); RBC Distribution Width 13.6 % (11.5-14.5); Red Blood Cell (RBC) Count 5.02 mill/uL (4.70-6.10); White Blood Cell (WBC) Count 5.3 10x3/uL (4.8-10.8)
[2023-07-04 00:37] LABS: INR-International Normal Ratio 1.2; Prothrombin Time 15.5 sec (12.0-14.7)
[2023-07-04 00:38] LABS: PTT 27.2 sec (22.9-36.1)
[2023-07-04 00:46] LABS: ALT (SGPT) 16 U/L (8-55); AST (SGOT) 19 U/L (5-34); Albumin 3.9 g/dL (3.4-4.8); Alkaline Phosphatase 99 U/L (40-110); Anion Gap 12 mmol/L (10-20); BUN (Urea Nitrogen) 17 mg/dL (8.4-25.7); Bilirubin, Total 0.8 mg/dL (0.2-1.2); Calc. Creatinine Clearance 0 mL/min (70-130); Calcium 8.8 mg/dL (7.8-10.44); Carbon Dioxide 24 mmol/L (23-31); Chloride 108 mmol/L (98-107); Estimated GFR 82; Globulin 2.9 g/dL (2.4-3.5); Glucose 171 mg/dL (80-115); Magnesium 1.8 mg/dL (1.6-2.6); Potassium 4.2 mmol/L (3.5-5.1); Protein, Total 6.8 g/dL (5.8-8.1); Sodium 140 mmol/L (136-145)
[2023-07-04] MEDS ORDERED: Ondansetron PF 4 MG/2 ML Vial IVP PRN (02:19)
[2023-07-04] MEDS ORDERED: Acetaminophen 325 MG TAB PO PRN (02:19)
[2023-07-04] MEDS ORDERED: hydrALAZINE 20 MG/ML VIAL SLOW IVP PRN (02:19)
[2023-07-04] MEDS ORDERED: Labetalol HCl 100 MG/20 ML VIAL SLOW IVP PRN (02:19)
[2023-07-04] MEDS ORDERED: Magnesium Sulfate 2 GM in Sodium Chloride 0.9% 100 ML IVPB SCH (02:30)
[2023-07-04] MEDS ORDERED: methylPREDNISolone Sod Succ/PF 125 MG/2 ML VIAL ONE (02:35)
[2023-07-04] MEDS ORDERED: Magnesium 2 GM/50 ML(in water) 2 GM in Premix 1 BAG IVPB SCH (02:45)
[2023-07-04] MEDS ORDERED: Ipratropium/Albuterol 3 ML NEB ONE ×5 (02:54→18:35)
[2023-07-04] MEDS ORDERED: Ipratropium/Albuterol 3 ML NEB EZPAP PRN (03:03)
[2023-07-04] MEDS ORDERED: Magnesium 2 GM/50 ML BAG (IN WATER) ONE (04:21)
[2023-07-04] MEDS ORDERED: Sodium Chloride 0.9% 100 ML ONE (05:13)
[2023-07-04] MEDS ORDERED: cefTRIAXone (ROCEPHIN) 1 GM VIAL ONE (05:13)
[2023-07-04] MEDS: cefTRIAXone\\ROCEPHIN 1 GM in Sodium Chloride 0.9% 100 ML IVPB SCH (05:18)
[2023-07-04 05:59] LABS: #Monocytes 0.2 thou/uL (0.11-0.59); #Neutrophils 3.5 thou/uL (1.40-6.50); %Basophils 0.2 % (0.0-1.0); %Eosinophils 0.7 % (0.0-10.0); %Lymphocytes 15.8 % (21.0-51.0); %Monocytes 3.4 % (0.0-10.0); %Neutrophils 79.7 % (42.0-75.0); Hematocrit 44.4 % (42.0-52.0); Hemoglobin 14.1 g/dL (14.0-18.0); Mean Corpuscular HGB CONC 31.8 g/dL (32.0-36.0); Mean Corpuscular Hemoglobin 28.7 pg (27.0-31.0); Mean Corpuscular Volume 90.2 fl (78.0-98.0); Platelet Count 290 10x3/uL (130-400); RBC Distribution Width 13.7 % (11.5-14.5); Red Blood Cell (RBC) Count 4.92 mill/uL (4.70-6.10); White Blood Cell (WBC) Count 4.4 10x3/uL (4.8-10.8)
[2023-07-04 06:05] LABS: Hemoglobin A1c 6.5 % (4.0-6.0)
[2023-07-04] MEDS ORDERED: Furosemide 20 MG (2 mL) VIAL ONE ×2 (06:27→12:55)
[2023-07-04 06:28] LABS: Anion Gap 14 mmol/L (10-20); BUN (Urea Nitrogen) 17 mg/dL (8.4-25.7); Calc. Creatinine Clearance 0 mL/min (70-130); Calcium 8.7 mg/dL (7.8-10.44); Carbon Dioxide 21 mmol/L (23-31); Cardiac Risk 3.5 (Less than 4.5); Chloride 110 mmol/L (98-107); Cholesterol 154 mg/dl (< 200 Desired); Estimated GFR 98; Glucose 99 mg/dL (80-115); HDL Cholesterol 44 mg/dL (>60 Neg Risk); LDL Cholesterol, Calculated 99 mg/dL; Potassium 4.1 mmol/L (3.5-5.1); Sodium 141 mmol/L (136-145); Triglycerides 56 mg/dL (Less than 150)
[2023-07-04] MEDS: Furosemide 20 MG (2 mL) VIAL SLOW IVP SCH ×2 (06:28→13:03)
[2023-07-04] MEDS: Ipratropium/Albuterol 3 ML NEB NEB SCH ×4 (07:22→18:39)
[2023-07-04] MEDS ORDERED: methylPREDNISolone Sod Succ 40 MG VIAL ONE (08:41)
[2023-07-04] MEDS ORDERED: Doxycycline 100 MG CAP ONE (08:41)
[2023-07-04] MEDS ORDERED: Aspirin 81 mg Enteric Coated Tablet ONE (08:41)
[2023-07-04] MEDS ORDERED: Apixaban 5 MG TAB PO SCH (09:00)
[2023-07-04] MEDS: Aspirin 81 mg Enteric Coated Tablet PO SCH (09:47)
[2023-07-04] MEDS: Doxycycline 100 MG CAP PO SCH ×2 (09:47→21:39)
[2023-07-04] MEDS: methylPREDNISolone Sod Succ 40 MG VIAL IVP SCH ×2 (09:48→21:39)
[2023-07-04] MEDS: Atorvastatin Calcium 40 MG TAB PO SCH (21:39)
[2023-07-04] MEDS: Apixaban 5 MG TAB PO SCH (21:39)
[2023-07-04 21:40] VITALS: BMI 24.8
[2023-07-05] MEDS: Ipratropium/Albuterol 3 ML NEB NEB SCH ×7 (00:27→23:08)
[2023-07-05] MEDS: Furosemide 20 MG (2 mL) VIAL SLOW IVP SCH (03:38)
[2023-07-05] MEDS: cefTRIAXone\\ROCEPHIN 1 GM in Sodium Chloride 0.9% 100 ML IVPB SCH (03:38)
[2023-07-05 05:27] LABS: #Monocytes 0.3 thou/uL (0.11-0.59); #Neutrophils 9.3 thou/uL (1.40-6.50); %Basophils 0.1 % (0.0-1.0); %Lymphocytes 7.9 % (21.0-51.0); %Monocytes 3.1 % (0.0-10.0); %Neutrophils 88.5 % (42.0-75.0); Hematocrit 42.8 % (42.0-52.0); Hemoglobin 13.8 g/dL (14.0-18.0); Mean Corpuscular HGB CONC 32.2 g/dL (32.0-36.0); Mean Corpuscular Hemoglobin 29.1 pg (27.0-31.0); Mean Corpuscular Volume 90.3 fl (78.0-98.0); Platelet Count 333 10x3/uL (130-400); RBC Distribution Width 13.8 % (11.5-14.5); Red Blood Cell (RBC) Count 4.74 mill/uL (4.70-6.10); White Blood Cell (WBC) Count 10.5 10x3/uL (4.8-10.8)
[2023-07-05 06:32] LABS: Anion Gap 11 mmol/L (10-20); BUN (Urea Nitrogen) 21 mg/dL (8.4-25.7); Calc. Creatinine Clearance 89 mL/min (70-130); Calcium 8.8 mg/dL (7.8-10.44); Carbon Dioxide 26 mmol/L (23-31); Chloride 103 mmol/L (98-107); Estimated GFR 86; Glucose 154 mg/dL (80-115); Magnesium 1.9 mg/dL (1.6-2.6); Potassium 3.9 mmol/L (3.5-5.1); Sodium 136 mmol/L (136-145)
[2023-07-05] MEDS ORDERED: Electrolyte Replacement Protocol 1 EACH FS SCH (07:00)
[2023-07-05 07:53] LABS: Magnesium 1.9 mg/dL (1.6-2.6)
[2023-07-05 07:59] LABS: Troponin I 0.012 ng/mL (< 0.028)
[2023-07-05] MEDS ORDERED: Magnesium 2 GM/50 ML(in water) 2 GM in Premix 1 BAG IVPB SCH (08:00)
[2023-07-05] MEDS: Apixaban 5 MG TAB PO SCH ×2 (08:35→20:44)
[2023-07-05] MEDS: Aspirin 81 mg Enteric Coated Tablet PO SCH (08:35)
[2023-07-05] MEDS: methylPREDNISolone Sod Succ 40 MG VIAL IVP SCH ×2 (08:35→20:44)
[2023-07-05] MEDS: Doxycycline 100 MG CAP PO SCH ×2 (08:35→20:44)
[2023-07-05] MEDS: Spironolactone 25 MG TAB PO SCH (08:48)
[2023-07-05] MEDS: Sacubitril 24MG/Valsartan 26 MG TAB PO SCH ×2 (08:49→20:44)
[2023-07-05] MEDS: Empagliflozin 10 MG TAB PO SCH (08:49)
[2023-07-05] MEDS ORDERED: FLU VACC QS2023-24(6MOS UP)/PF 60 MCG/0.5 ML SYRINGE IM ONE (09:00)
[2023-07-05] MEDS: Carvedilol 6.25 MG TAB PO SCH (16:14)
[2023-07-05] MEDS: Mometasone 100 MCG/Formoterol 5 MCG 120 PUFF INHALER INH SCH (18:28)
[2023-07-05] MEDS: Atorvastatin Calcium 40 MG TAB PO SCH (20:43)
[2023-07-06] MEDS: Ipratropium/Albuterol 3 ML NEB NEB SCH ×4 (01:42→14:20)
[2023-07-06] MEDS: cefTRIAXone\\ROCEPHIN 1 GM in Sodium Chloride 0.9% 100 ML IVPB SCH (04:31)
[2023-07-06 05:27] LABS: #Monocytes 0.4 thou/uL (0.11-0.59); #Neutrophils 13.5 thou/uL (1.40-6.50); %Basophils 0.1 % (0.0-1.0); %Lymphocytes 4.9 % (21.0-51.0); %Monocytes 2.7 % (0.0-10.0); %Neutrophils 91.2 % (42.0-75.0); Hematocrit 42.9 % (42.0-52.0); Hemoglobin 14.1 g/dL (14.0-18.0); Mean Corpuscular HGB CONC 32.9 g/dL (32.0-36.0); Mean Corpuscular Hemoglobin 29.6 pg (27.0-31.0); Mean Corpuscular Volume 89.9 fl (78.0-98.0); Mean Platelet Volume 11.4 fL (7.4-10.4); Platelet Count 336 10x3/uL (130-400); Red Blood Cell (RBC) Count 4.77 mill/uL (4.70-6.10); White Blood Cell (WBC) Count 14.8 10x3/uL (4.8-10.8)
[2023-07-06 05:56] LABS: Anion Gap 15 mmol/L (10-20); BUN (Urea Nitrogen) 19 mg/dL (8.4-25.7); Calc. Creatinine Clearance 83 mL/min (70-130); Calcium 9.1 mg/dL (7.8-10.44); Carbon Dioxide 23 mmol/L (23-31); Chloride 106 mmol/L (98-107); Estimated GFR 79; Glucose 165 mg/dL (80-115); Magnesium 2.1 mg/dL (1.6-2.6); Potassium 4.1 mmol/L (3.5-5.1); Sodium 140 mmol/L (136-145)
[2023-07-06] MEDS: Mometasone 100 MCG/Formoterol 5 MCG 120 PUFF INHALER INH SCH (07:21)
[2023-07-06] MEDS: Doxycycline 100 MG CAP PO SCH (08:58)
[2023-07-06] MEDS: Spironolactone 25 MG TAB PO SCH (08:58)
[2023-07-06] MEDS: Aspirin 81 mg Enteric Coated Tablet PO SCH (08:58)
[2023-07-06] MEDS: Sacubitril 24MG/Valsartan 26 MG TAB PO SCH (08:58)
[2023-07-06] MEDS: Carvedilol 6.25 MG TAB PO SCH (08:58)
[2023-07-06] MEDS: methylPREDNISolone Sod Succ 40 MG VIAL IVP SCH (08:58)
[2023-07-06] MEDS: Empagliflozin 10 MG TAB PO SCH (08:58)
[2023-07-06] MEDS: Apixaban 5 MG TAB PO SCH (08:58)
[2023-07-06 11:50] VITALS: BP 146/91; TEMP 97.6
== END 2023-07-06 16:31 | disposition home or self-care (01) | DRG 64 ==
LOC: ERS 23:27 → ERHOLD 07-04 02:09 → 2SE 07-04 21:31
PROVIDERS: ADMIT Internal Medicine; ATTEND Family Medicine
DX: I63.9 Cerebral infarction, unspecified (principal); I50.23 Acute on chronic systolic (congestive) heart failure; G45.9 Transient cerebral ischemic attack, unspecified; G81.92 Hemiplegia, unspecified affecting left dominant side; J44.1 Chronic obstructive pulmonary disease with (acute) exacerbation; I42.9 Cardiomyopathy, unspecified; I48.21 Permanent atrial fibrillation; I11.0 Hypertensive heart disease with heart failure; F17.210 Nicotine dependence, cigarettes, uncomplicated; J32.0 Chronic maxillary sinusitis; I65.22 Occlusion and stenosis of left carotid artery; J32.2 Chronic ethmoidal sinusitis; Z95.810 Presence of automatic (implantable) cardiac defibrillator
CPT/HCPCS: 36415; 70450; 70496; 70498; 70551; 71045; 80048; 80053; 80061; 81001; 83036; 83735; 83880; 84443; 84484; 85025; 85610; 85730; 93005; 93010; 93306; 94640; J0696; J1940; J2920; J2930; J3475; J3490; J7620; Q9967

== ENCOUNTER 2023-11-18 12:01 | Inpatient (IN) | payer MEDICARE ==
[2023-11-18] MEDS ORDERED: Aspirin Chewable 81 MG TAB ONE (12:37)
[2023-11-18 13:23] LABS: #Basophils 0.06 10x3/uL (0.0-0.2); %Basophils 1.7 % (0.0-1.0); %Eosinophils 2.6 % (0.0-10.0); %Lymphocytes 33.2 % (21.0-51.0); %Monocytes 11.1 % (0.0-10.0); %Neutrophils 51.1 % (42.0-75.0); Hemoglobin 13.9 g/dL (14.0-18.0); Mean Corpuscular HGB CONC 31.6 g/dL (32.0-36.0); Mean Corpuscular Hemoglobin 29.6 pg (27.0-31.0); Mean Corpuscular Volume 93.8 fL (78.0-98.0); Mean Platelet Volume 11.1 fL (7.4-10.4); Platelet Count 253 10x3/uL (130-400); RBC Distribution Width 14.3 % (11.5-14.5); Red Blood Cell (RBC) Count 4.69 mill/uL (4.70-6.10)
[2023-11-18 13:38] LABS: Acetaminophen Less than 10 mcg/mL (10.0-30.0); Alcohol 27.9 mg/dL (Less than 10); Salicylate Less than 8.0 mg/dL (15.0-30.0)
[2023-11-18 13:39] LABS: ALT (SGPT) 17 U/L (8-55); AST (SGOT) 24 U/L (5-34); Albumin 3.5 g/dL (3.4-4.8); Alkaline Phosphatase 91 U/L (40-110); Anion Gap 16 mmol/L (10-20); BUN (Urea Nitrogen) 20 mg/dL (8.4-25.7); Bilirubin, Total 0.8 mg/dL (0.2-1.2); Calc. Creatinine Clearance 0 mL/min (70-130); Calcium 8.8 mg/dL (7.8-10.44); Carbon Dioxide 18 mmol/L (23-31); Chloride 113 mmol/L (98-107); Estimated GFR 97; Globulin 2.7 g/dL (2.4-3.5); Glucose 64 mg/dL (80-115); INR-International Normal Ratio 1.1; PTT 27.2 sec (22.9-36.1); Protein, Total 6.2 g/dL (5.8-8.1); Prothrombin Time 14.2 sec (12.0-14.7); Sodium 143 mmol/L (136-145)
[2023-11-18 13:49] LABS: D-Dimer Test 0.73 mcg/mL (0.27-0.43)
[2023-11-18 13:51] LABS: Troponin I 0.274 ng/mL (< 0.028)
[2023-11-18] MEDS ORDERED: Ipratropium/Albuterol 3 ML NEB NEB PRN (15:18)
[2023-11-18] MEDS ORDERED: Acetaminophen 325 MG TAB PO PRN (17:03)
[2023-11-18] MEDS ORDERED: Ondansetron PF 4 MG/2 ML Vial IVP PRN (17:03)
[2023-11-18 18:08] LABS: Critical Call Chem Troponin I NUR.LB16@1808; Lactic Acid 1.5 mmol/L (0.5-2.2); Troponin I 0.305 ng/mL (< 0.028)
[2023-11-18 18:11] LABS: Anion Gap 14 mmol/L (10-20); BUN (Urea Nitrogen) 19 mg/dL (8.4-25.7); Calc. Creatinine Clearance 0 mL/min (70-130); Calcium 9.3 mg/dL (7.8-10.44); Carbon Dioxide 24 mmol/L (23-31); Chloride 106 mmol/L (98-107); Estimated GFR 94; Glucose 132 mg/dL (80-115); Potassium 3.8 mmol/L (3.5-5.1); Sodium 140 mmol/L (136-145)
[2023-11-18 20:44] VITALS: BMI 23.8
[2023-11-18] MEDS ORDERED: Sacubitril 24MG/Valsartan 26 MG TAB PO SCH (21:00)
[2023-11-18] MEDS: Ipratropium/Albuterol 3 ML NEB NEB SCH (22:10)
[2023-11-18] MEDS: Mometasone 200 MCG/Formoterol 5 MCG 120 PUFF INHALER INH SCH (22:17)
[2023-11-18] MEDS: Atorvastatin Calcium 40 MG TAB PO SCH (22:33)
[2023-11-19 06:23] LABS: Cardiac Risk 2.5 (Less than 4.5)
[2023-11-19] MEDS: Aspirin 81 mg Enteric Coated Tablet PO SCH (08:16)
[2023-11-19] MEDS: Sacubitril 24MG/Valsartan 26 MG TAB PO SCH (08:16)
[2023-11-19] MEDS: Empagliflozin 10 MG TAB PO SCH (08:16)
[2023-11-19] MEDS: Spironolactone 25 MG TAB PO SCH (08:16)
[2023-11-19 13:05] VITALS: BMI 23.8
[2023-11-19] MEDS: Carvedilol 6.25 MG TAB PO SCH (16:31)
[2023-11-20 08:20] VITALS: BP 147/100
[2023-11-20] MEDS ORDERED: Heparin 5,000 UNITS/ML VIAL ONE (08:57)
[2023-11-20] MEDS ORDERED: Protamine Sulfate 50 MG/5 ML VIAL ONE ×2 (08:57→11:01)
[2023-11-20] MEDS ORDERED: EPINEPHrine 1 MG/ML VIAL ONE (08:57)
[2023-11-20] MEDS ORDERED: Bupivacaine PF 0.5% 30 ML VIAL ONE (08:57)
[2023-11-20] MEDS ORDERED: CEFAZOLIN 2 GM VIAL ONE (09:34)
[2023-11-20] MEDS ORDERED: Sodium Chloride 0.9% 100 ML ONE (09:35)
[2023-11-20] MEDS ORDERED: SUCCINYLCHOLINE/SOD CL,ISO/PF 200 MG/10 ML SYRINGE FS ONE (09:44)
[2023-11-20] MEDS ORDERED: PHENYLEPHRINE-NS 100 MCG/ML 10 ML SYRINGE ONE (09:44)
[2023-11-20] MEDS ORDERED: Rocuronium Bromide 10 MG/ML (10ML VIAL) ONE (09:44)
[2023-11-20] MEDS ORDERED: Etomidate 40 MG (20 mL) VIAL ONE (09:50)
[2023-11-20] MEDS ORDERED: fentaNYL PF 100 MCG/2 ML SYRINGE ONE (09:59)
[2023-11-20] MEDS ORDERED: Heparin 10,000 UNITS/ 10 ML VIAL ONE (10:30)
[2023-11-20] MEDS ORDERED: Norepinephrine 4 MG/4 ML VIAL ONE (10:41)
[2023-11-20] MEDS ORDERED: Dexamethasone 20 MG/5 ML VIAL ONE (10:45)
[2023-11-20] MEDS ORDERED: Ondansetron PF 4 MG/2 ML Vial ONE (10:45)
[2023-11-20] MEDS ORDERED: Nitroglycerin 50 MG/250 ML BOT 250 ML IVPB PRN (11:45)
[2023-11-20] MEDS ORDERED: Ipratropium/Albuterol 3 ML NEB NEB PRN (11:45)
[2023-11-20] MEDS ORDERED: fentaNYL 50 mcg/mL 1 mL Vial SLOW IVP PRN ×2 (11:45)
[2023-11-20] MEDS ORDERED: Phenylephrine 40 MG in Sodium Chloride 0.9% 250 ML 250 ML IVPB PRN (11:45)
[2023-11-20] MEDS ORDERED: hydrALAZINE 20 MG/ML VIAL SLOW IVP PRN (11:45)
[2023-11-20] MEDS ORDERED: Ondansetron PF 4 MG/2 ML Vial IVP PRN (11:45)
[2023-11-20] MEDS ORDERED: Acetaminophen 325 MG TAB PO PRN (11:45)
[2023-11-20] MEDS ORDERED: traMADol HCl 50 MG TAB PO PRN (11:45)
[2023-11-20] MEDS ORDERED: Ipratropium/Albuterol 3 ML NEB NEB SCH (13:00)
[2023-11-20] MEDS: Sodium Chloride 0.9% 1,000 ML IV SCH (13:48)
[2023-11-20] MEDS: Carvedilol 6.25 MG TAB PO SCH (13:48)
[2023-11-20] MEDS: Ipratropium/Albuterol 3 ML NEB NEB SCH (14:33)
[2023-11-20] MEDS: CEFAZOLIN 2 GM in Sodium Chloride 0.9% 100 ML IVPB SCH (16:32)
[2023-11-20] MEDS: traMADol HCl 50 MG TAB PO PRN (19:26)
[2023-11-21] MEDS ORDERED: Atorvastatin Calcium 40 MG TAB PO SCH (07:57)
[2023-11-21 13:15] VITALS: TEMP 97.5
== END 2023-11-21 14:55 | disposition home or self-care (01) | DRG 38 ==
LOC: ERS 12:01 → ERHOLD 14:50 → 2SE 20:04 → SURG A 11-20 10:25 → CCU 11-20 13:30
PROVIDERS: ADMIT Internal Medicine; ATTEND Internal Medicine
PROC: 03CM0ZZ Extirpation of Matter from Right External Carotid Artery, Open Approach (ICD-10-PCS; principal; 2023-11-20)
PROC: 03UM0KZ Supplement Right External Carotid Artery with Nonautologous Tissue Substitute, Open Approach (ICD-10-PCS; 2023-11-20)
DX: I63.231 Cerebral infarction due to unspecified occlusion or stenosis of right carotid arteries (principal); I42.9 Cardiomyopathy, unspecified; I48.21 Permanent atrial fibrillation; I50.22 Chronic systolic (congestive) heart failure; I47.20 Ventricular tachycardia, unspecified; Z79.01 Long term (current) use of anticoagulants; Z79.899 Other long term (current) drug therapy; Z79.82 Long term (current) use of aspirin; J44.9 Chronic obstructive pulmonary disease, unspecified; I11.0 Hypertensive heart disease with heart failure
CPT/HCPCS: 36415; 36416; 70450; 70496; 70498; 70553; 71045; 71275; 80053; 80061; 80307; 83605; 83880; 84484; 85025; 85379; 85610; 85730; 86850; 86900; 86901; 88305; 88341; 88342; 93005; 93010; 94640; 94760; C1768; J0171; J0665; J1100; J1644; J2405; J2720; J3490; J7620; Q9967

== ENCOUNTER 2024-01-28 01:45 | Inpatient (IN) | payer MEDICARE ==
[2024-01-28 02:17] LABS: #Basophils 0.04 10x3/uL (0.0-0.2); %Basophils 0.7 % (0.0-1.0); %Eosinophils 2.1 % (0.0-10.0); %Lymphocytes 26.3 % (21.0-51.0); %Monocytes 7.5 % (0.0-10.0); %Neutrophils 63.1 % (42.0-75.0); Hemoglobin 14.6 g/dL (14.0-18.0); Mean Corpuscular HGB CONC 33.2 g/dL (32.0-36.0); Mean Corpuscular Hemoglobin 30.6 pg (27.0-31.0); Mean Corpuscular Volume 92.2 fL (78.0-98.0); Mean Platelet Volume 10.6 fL (7.4-10.4); Platelet Count 254 10x3/uL (130-400); RBC Distribution Width 14.6 % (11.5-14.5); Red Blood Cell (RBC) Count 4.77 mill/uL (4.70-6.10)
[2024-01-28 02:32] LABS: INR-International Normal Ratio 1.2; Prothrombin Time 14.8 sec (12.0-14.7)
[2024-01-28 02:33] LABS: ALT (SGPT) 27 U/L (8-55); AST (SGOT) 33 U/L (5-34); Albumin 3.7 g/dL (3.4-4.8); Alkaline Phosphatase 134 U/L (40-110); Anion Gap 15 mmol/L (10-20); BUN (Urea Nitrogen) 17 mg/dL (8.4-25.7); Bilirubin, Total 1.5 mg/dL (0.2-1.2); Calc. Creatinine Clearance 0 mL/min (70-130); Calcium 9.1 mg/dL (7.8-10.44); Carbon Dioxide 25 mmol/L (23-31); Chloride 108 mmol/L (98-107); Estimated GFR 80; Glucose 125 mg/dL (80-115); PTT 25.9 sec (22.9-36.1); Protein, Total 6.7 g/dL (5.8-8.1); Sodium 144 mmol/L (136-145)
[2024-01-28 02:37] LABS: Troponin I 0.042 ng/mL (< 0.028)
[2024-01-28] MEDS ORDERED: Nitroglycerin 2% Ointment 1 INCH/1 GM Packet ONE (03:16)
[2024-01-28] MEDS ORDERED: Furosemide 40 MG (4 mL) VIAL ONE (03:16)
[2024-01-28] MEDS ORDERED: Famotidine/PF 20 mg/2ml Vial ONE (03:16)
[2024-01-28 06:56] LABS: Troponin I 0.788 ng/mL (< 0.028)
[2024-01-28] MEDS ORDERED: Nitroglycerin 0.4 MG TAB (25 Tab Bottle) SL PRN (07:25)
[2024-01-28] MEDS ORDERED: Acetaminophen 325 MG TAB PO PRN (08:17)
[2024-01-28] MEDS ORDERED: Ondansetron ODT 4 MG TAB PO PRN (08:17)
[2024-01-28] MEDS ORDERED: Ondansetron PF 4 MG/2 ML Vial IVP PRN (08:17)
[2024-01-28] MEDS ORDERED: Acetaminophen/Codeine 30-300mg Tablet PO PRN (08:17)
[2024-01-28 08:19] LABS: Hematocrit 46.3 % (42.0-52.0); Hemoglobin 15.1 g/dL (14.0-18.0); Platelet Count 249 10x3/uL (130-400)
[2024-01-28] MEDS ORDERED: Heparin 25,000 units/D5W 500 ML ONE (08:28)
[2024-01-28 08:48] LABS: Troponin I 1.286 ng/mL (< 0.028)
[2024-01-28] MEDS ORDERED: Insulin Lispro 100 UNIT/ML 10 ML VIAL SC PRN ×2 (09:16)
[2024-01-28] MEDS ORDERED: Dextrose 50% Abboject 50 ML SYRINGE SLOW IVP PRN (09:16)
[2024-01-28] MEDS ORDERED: Glucagon 1 MG/ML KIT IM PRN (09:16)
[2024-01-28] MEDS ORDERED: Dextrose 5% in Water 1,000 ML IV PRN (09:16)
[2024-01-28] MEDS: Nitroglycerin 2% Ointment 1 INCH/1 GM Packet TOP SCH (09:29)
[2024-01-28] MEDS: Nitroglycerin 50 MG/250 ML BOT 250 ML IVPB SCH (09:30)
[2024-01-28 09:41] LABS: Troponin I 1.444 ng/mL (< 0.028)
[2024-01-28] MEDS ORDERED: Famotidine 20 MG TAB ONE (09:46)
[2024-01-28] MEDS ORDERED: Aspirin Chewable 81 MG TAB ONE (09:47)
[2024-01-28] MEDS: Aspirin Chewable 81 MG TAB PO SCH (09:50)
[2024-01-28] MEDS: Famotidine 20 MG TAB PO SCH (09:50)
[2024-01-28] MEDS: Empagliflozin 10 MG TAB PO SCH (11:56)
[2024-01-28 13:05] LABS: Troponin I 2.063 ng/mL (< 0.028)
[2024-01-28] MEDS ORDERED: Nitroglycerin 2% Ointment 1 INCH/1 GM Packet TOP SCH (14:00)
[2024-01-28] MEDS: Carvedilol 3.125 MG TAB PO SCH (17:28)
[2024-01-28] MEDS: Rosuvastatin 20 MG TAB PO SCH (20:43)
[2024-01-28] MEDS: Heparin 10,000 UNITS/ 10 ML VIAL SLOW IVP SCH (20:55)
[2024-01-29 01:27] LABS: A1c 140.171 g/dL; Hb (HGBA1c) 3726.5212 umol/L; Hemoglobin A1c 5.6 % (4.0-6.0)
[2024-01-29 01:30] LABS: Anion Gap 15 mmol/L (10-20); BUN (Urea Nitrogen) 15 mg/dL (8.4-25.7); Calc. Creatinine Clearance 84 mL/min (70-130); Calcium 8.7 mg/dL (7.8-10.44); Carbon Dioxide 24 mmol/L (23-31); Cardiac Risk 2.5 (Less than 4.5); Chloride 105 mmol/L (98-107); Cholesterol 145 mg/dl (< 200 Desired); Estimated GFR 88; Glucose 130 mg/dL (80-115); HDL Cholesterol 57 mg/dL (>60 Neg Risk); LDL Cholesterol, Calculated 78 mg/dL; Potassium 3.7 mmol/L (3.5-5.1); Sodium 140 mmol/L (136-145); Triglycerides 50 mg/dL (Less than 150)
[2024-01-29 05:52] VITALS: BMI 20.8
[2024-01-29] MEDS: Heparin 25,000 units/D5W 500 ML IVPB SCH (08:29)
[2024-01-29] MEDS: Valsartan 80 MG TAB PO SCH (08:57)
[2024-01-29 13:14] VITALS: BMI 20.8
[2024-01-29] MEDS: Apixaban 5 MG TAB PO SCH (21:24)
[2024-01-30 04:57] LABS: Anion Gap 12 mmol/L (10-20); BUN (Urea Nitrogen) 18 mg/dL (8.4-25.7); Calc. Creatinine Clearance 84 mL/min (70-130); Calcium 8.5 mg/dL (7.8-10.44); Carbon Dioxide 25 mmol/L (23-31); Chloride 105 mmol/L (98-107); Estimated GFR 89; Glucose 86 mg/dL (80-115); Sodium 138 mmol/L (136-145)
[2024-01-30 07:34] LABS: Hematocrit 46.9 % (42.0-52.0); Platelet Count 218 10x3/uL (130-400)
[2024-01-30] MEDS: Spironolactone 25 MG TAB PO SCH (08:22)
[2024-01-30] MEDS: Carvedilol 3.125 MG TAB PO SCH (08:23)
[2024-01-30 12:35] VITALS: BP 125/81; TEMP 97.8
[2024-01-30] MEDS ORDERED: Carvedilol 3.125 MG TAB PO SCH (17:00)
== END 2024-01-30 12:57 | disposition home or self-care (01) | DRG 280 ==
LOC: ERS 01:45 → ERHOLD 04:46 → OBSVTOIN 09:20 → CCU 11:10 → 2NO 01-29 14:37
PROVIDERS: ADMIT Internal Medicine; ATTEND Internal Medicine
DX: I21.4 Non-ST elevation (NSTEMI) myocardial infarction (principal); I50.23 Acute on chronic systolic (congestive) heart failure; I42.9 Cardiomyopathy, unspecified; I48.21 Permanent atrial fibrillation; I11.0 Hypertensive heart disease with heart failure; J44.9 Chronic obstructive pulmonary disease, unspecified; R73.03 Prediabetes; I73.9 Peripheral vascular disease, unspecified; I44.7 Left bundle-branch block, unspecified; F17.210 Nicotine dependence, cigarettes, uncomplicated; Z95.810 Presence of automatic (implantable) cardiac defibrillator; Z91.199 Patient's noncompliance with other medical treatment and regimen due to unspecified reason; Z79.01 Long term (current) use of anticoagulants; Z79.899 Other long term (current) drug therapy; Z79.82 Long term (current) use of aspirin; Z86.73 Personal history of transient ischemic attack (TIA), and cerebral infarction without residual deficits; Z53.9 Procedure and treatment not carried out, unspecified reason
CPT/HCPCS: 36415; 36416; 71045; 80048; 80053; 80061; 83036; 83880; 84484; 85014; 85018; 85025; 85049; 85610; 85730; 93005; 93798; 96374; 96375; G0378; J1644; J1940; J3490

== ENCOUNTER 2024-04-05 05:06 | Inpatient (IN) | payer MEDICARE ==
[2024-04-05] MEDS ORDERED: Nitroglycerin 50 MG/250 ML BOT 250 ML ONE (05:13)
[2024-04-05] MEDS ORDERED: Nitroglycerin 2% Ointment 1 INCH/1 GM Packet ONE (05:13)
[2024-04-05] MEDS ORDERED: Furosemide 40 MG (4 mL) VIAL ONE (05:18)
[2024-04-05] MEDS ORDERED: Albuterol 2.5 MG (0.5 mL) NEB ONE (05:19)
[2024-04-05] MEDS ORDERED: Ipratropium/Albuterol 3 ML NEB ONE (05:19)
[2024-04-05] MEDS ORDERED: Albuterol 2.5 MG (3 mL) NEB ONE (05:19)
[2024-04-05] MEDS ORDERED: Ipratropium Bromide 2.5 ml Neb ONE (05:27)
[2024-04-05 06:30] LABS: #Basophils 0.05 10x3/uL (0.0-0.2); %Basophils 0.6 % (0.0-1.0); %Eosinophils 0.5 % (0.0-10.0); %Lymphocytes 15.9 % (21.0-51.0); %Monocytes 5.2 % (0.0-10.0); %Neutrophils 77.4 % (42.0-75.0); Hematocrit 50.4 % (42.0-52.0); Hemoglobin 15.7 g/dL (14.0-18.0); Mean Corpuscular HGB CONC 31.2 g/dL (32.0-36.0); Mean Corpuscular Hemoglobin 30.4 pg (27.0-31.0); Mean Corpuscular Volume 97.5 fL (78.0-98.0); Mean Platelet Volume 10.7 fL (7.4-10.4); Platelet Count 259 10x3/uL (130-400); RBC Distribution Width 14.4 % (11.5-14.5); Red Blood Cell (RBC) Count 5.17 mill/uL (4.70-6.10)
[2024-04-05 06:53] LABS: ALT (SGPT) 39 U/L (8-55); AST (SGOT) 36 U/L (5-34); Albumin 3.7 g/dL (3.4-4.8); Alkaline Phosphatase 117 U/L (40-110); Anion Gap 16 mmol/L (10-20); BUN (Urea Nitrogen) 23 mg/dL (8.4-25.7); Bilirubin, Total 1.4 mg/dL (0.2-1.2); Calc. Creatinine Clearance 0 mL/min (70-130); Calcium 9.3 mg/dL (7.8-10.44); Carbon Dioxide 18 mmol/L (23-31); Chloride 109 mmol/L (98-107); Estimated GFR 63; Globulin 3.1 g/dL (2.4-3.5); Glucose 109 mg/dL (80-115); Potassium 4.4 mmol/L (3.5-5.1); Protein, Total 6.8 g/dL (5.8-8.1); Sodium 139 mmol/L (136-145)
[2024-04-05 06:58] LABS: Troponin I 0.037 ng/mL (< 0.028)
[2024-04-05] MEDS ORDERED: Acetaminophen 325 MG TAB PO PRN (08:13)
[2024-04-05] MEDS ORDERED: Ipratropium/Albuterol 3 ML NEB NEB PRN (08:21)
[2024-04-05] MEDS ORDERED: Albuterol 2.5 MG (3 mL) NEB NEB PRN (08:36)
[2024-04-05] MEDS ORDERED: Apixaban 5 MG TAB PO SCH (09:00)
[2024-04-05] MEDS: Apixaban 5 MG TAB PO SCH (09:19)
[2024-04-05] MEDS: Famotidine 20 MG TAB PO SCH (09:19)
[2024-04-05] MEDS: Aspirin 81 mg Enteric Coated Tablet PO SCH (09:19)
[2024-04-05] MEDS: Empagliflozin 10 MG TAB PO SCH (09:20)
[2024-04-05] MEDS: Carvedilol 25 MG TAB PO SCH (09:20)
[2024-04-05 09:45] VITALS: BMI 24.9
[2024-04-05] MEDS: Valsartan 80 MG TAB PO SCH (09:55)
[2024-04-05] MEDS: Sodium Chloride 0.9% 1,000 ML IV SCH (09:56)
[2024-04-05 11:06] LABS: Actual Bicarbonate (HCO3v) 26.3 mEq/L (22-28); Base Excess 0.9 mEq/L (-2.0 to +3.0); Calcium, Ionized (venous) 1.15 mmol/L (1.16-1.32); Chloride (VBG) 102 mmol/L (98-106); Hematocrit-VBG 48 % (42.0-52.0); Hemoglobin (Hb) 16.2 g/dL (13.1-17.2); Potassium (VBG) 3.96 mmol/L (3.70-5.30); Sodium 142 mmol/L (133-146)
[2024-04-05 11:20] LABS: Lactic Acid 0.98 mmol/L (0.5-2.2)
[2024-04-05 11:43] LABS: Troponin I 0.062 ng/mL (< 0.028)
[2024-04-05] MEDS ORDERED: methylPREDNISolone Sod Succ 40 MG VIAL IVP SCH (12:00)
[2024-04-05 12:04] LABS: Troponin I 0.062 ng/mL (< 0.028)
[2024-04-05] MEDS: Furosemide 40 MG (4 mL) VIAL SLOW IVP SCH (14:46)
[2024-04-05] MEDS: Mometasone 100 MCG/Formoterol 5 MCG 120 PUFF INHALER INH SCH (19:16)
[2024-04-05] MEDS: Atorvastatin Calcium 40 MG TAB PO SCH (21:06)
[2024-04-06 05:10] LABS: Anion Gap 14 mmol/L (10-20); BUN (Urea Nitrogen) 25 mg/dL (8.4-25.7); Calc. Creatinine Clearance 77 mL/min (70-130); Calcium 8.8 mg/dL (7.8-10.44); Carbon Dioxide 27 mmol/L (23-31); Chloride 99 mmol/L (98-107); Estimated GFR 75; Glucose 125 mg/dL (80-115); Potassium 3.8 mmol/L (3.5-5.1); Sodium 136 mmol/L (136-145)
[2024-04-06] MEDS: predniSONE 20 MG TAB PO SCH (09:34)
[2024-04-06] MEDS: Spironolactone 25 MG TAB PO SCH (09:35)
[2024-04-06 11:47] VITALS: TEMP 97.8
[2024-04-06 15:54] VITALS: BP 133/75
== END 2024-04-06 16:16 | disposition home or self-care (01) | DRG 291 ==
LOC: ERS 05:06 → CCU 07:50 → 2NO 15:32
PROVIDERS: ADMIT Internal Medicine; ATTEND Internal Medicine
DX: I11.0 Hypertensive heart disease with heart failure (principal); I50.23 Acute on chronic systolic (congestive) heart failure; J96.01 Acute respiratory failure with hypoxia; J44.1 Chronic obstructive pulmonary disease with (acute) exacerbation; I47.20 Ventricular tachycardia, unspecified; E78.5 Hyperlipidemia, unspecified; I48.91 Unspecified atrial fibrillation; F17.210 Nicotine dependence, cigarettes, uncomplicated; I34.0 Nonrheumatic mitral (valve) insufficiency; Z79.899 Other long term (current) drug therapy; Z79.01 Long term (current) use of anticoagulants; Z79.84 Long term (current) use of oral hypoglycemic drugs; Z79.82 Long term (current) use of aspirin; Z95.810 Presence of automatic (implantable) cardiac defibrillator; Z86.73 Personal history of transient ischemic attack (TIA), and cerebral infarction without residual deficits; R73.03 Prediabetes; I42.8 Other cardiomyopathies
CPT/HCPCS: 36415; 71045; 80048; 80053; 82805; 83605; 83880; 84484; 85025; 93005; 93798; 94660; 94664; 94760; J1940; J7512; J7611; J7620; J7644

== ENCOUNTER 2024-04-25 03:54 | Inpatient (IN) | payer MEDICARE ==
[2024-04-25 04:36] LABS: #Basophils 0.07 10x3/uL (0.0-0.2); %Basophils 1.5 % (0.0-1.0); %Eosinophils 2.1 % (0.0-10.0); %Lymphocytes 37.4 % (21.0-51.0); %Monocytes 13.2 % (0.0-10.0); %Neutrophils 45.6 % (42.0-75.0); Hematocrit 43.2 % (42.0-52.0); Hemoglobin 14.2 g/dL (14.0-18.0); Mean Corpuscular HGB CONC 32.9 g/dL (32.0-36.0); Mean Corpuscular Hemoglobin 30.1 pg (27.0-31.0); Mean Corpuscular Volume 91.5 fL (78.0-98.0); Mean Platelet Volume 11.2 fL (7.4-10.4); Platelet Count 170 10x3/uL (130-400); RBC Distribution Width 14.3 % (11.5-14.5); Red Blood Cell (RBC) Count 4.72 mill/uL (4.70-6.10)
[2024-04-25] MEDS ORDERED: Furosemide 40 MG (4 mL) VIAL ONE (04:56)
[2024-04-25 05:09] LABS: Troponin I 0.024 ng/mL (< 0.028)
[2024-04-25 05:11] LABS: ALT (SGPT) 20 U/L (8-55); AST (SGOT) 23 U/L (5-34); Albumin 3.6 g/dL (3.4-4.8); Alkaline Phosphatase 100 U/L (40-110); Anion Gap 15 mmol/L (10-20); BUN (Urea Nitrogen) 14 mg/dL (8.4-25.7); Bilirubin, Total 0.8 mg/dL (0.2-1.2); Calc. Creatinine Clearance 0 mL/min (70-130); Calcium 8.8 mg/dL (7.8-10.44); Carbon Dioxide 21 mmol/L (23-31); Chloride 108 mmol/L (98-107); Estimated GFR 96; Globulin 2.9 g/dL (2.4-3.5); Glucose 88 mg/dL (80-115); Potassium 4.1 mmol/L (3.5-5.1); Protein, Total 6.5 g/dL (5.8-8.1); Sodium 140 mmol/L (136-145)
[2024-04-25] MEDS ORDERED: Albuterol 2.5 MG (3 mL) NEB ONE (05:45)
[2024-04-25] MEDS ORDERED: Ondansetron ODT 4 MG TAB PO PRN (08:23)
[2024-04-25] MEDS ORDERED: Acetaminophen 325 MG TAB PO PRN (08:23)
[2024-04-25] MEDS ORDERED: Senokot S 8.6-50 MG TAB PO PRN (08:23)
[2024-04-25] MEDS ORDERED: Glucagon 1 MG/ML KIT IM PRN (08:41)
[2024-04-25] MEDS ORDERED: Dextrose 5% in Water 1,000 ML IV PRN (08:41)
[2024-04-25] MEDS ORDERED: Dextrose 50% Abboject 50 ML SYRINGE SLOW IVP PRN (08:41)
[2024-04-25] MEDS ORDERED: Insulin Lispro 100 UNIT/ML 10 ML VIAL SC PRN ×2 (08:41)
[2024-04-25] MEDS: Spironolactone 25 MG TAB PO SCH (09:42)
[2024-04-25] MEDS: Carvedilol 3.125 MG TAB PO SCH ×2 (09:43→18:24)
[2024-04-25] MEDS: predniSONE 20 MG TAB PO SCH (09:43)
[2024-04-25] MEDS: Nicotine 14 MG PATCH TD SCH (09:43)
[2024-04-25] MEDS: Apixaban 5 MG TAB PO SCH (09:43)
[2024-04-25] MEDS: Ipratropium/Albuterol 3 ML NEB NEB SCH (11:04)
[2024-04-25] MEDS: Furosemide 40 MG (4 mL) VIAL SLOW IVP SCH (15:33)
[2024-04-25] MEDS: Mometasone 100 MCG/Formoterol 5 MCG 120 PUFF INHALER INH SCH (19:05)
[2024-04-25 19:29] LABS: Influenza A by NAA Not Detected (NotDetected); Influenza B by NAA Not Detected (NotDetected); SARS-CoV-2 NAA Rapid Test Not Detected (NotDetected)
[2024-04-25] MEDS: Atorvastatin Calcium 40 MG TAB PO SCH (20:31)
[2024-04-25] MEDS: Sacubitril 24MG/Valsartan 26 MG TAB PO SCH (21:00)
[2024-04-26 04:37] LABS: #Basophils Less than 0.03 10x3/uL (0.0-0.2); #Eosinophils Less than 0.03 10x3/uL (0.0-0.7); %Basophils 0.2 % (0.0-1.0); %Eosinophils 0.3 % (0.0-10.0); %Lymphocytes 23.5 % (21.0-51.0); %Monocytes 8.9 % (0.0-10.0); %Neutrophils 66.8 % (42.0-75.0); Hematocrit 41.2 % (42.0-52.0); Hemoglobin 13.3 g/dL (14.0-18.0); Mean Corpuscular HGB CONC 32.3 g/dL (32.0-36.0); Mean Corpuscular Volume 92.8 fL (78.0-98.0); Mean Platelet Volume 11.4 fL (7.4-10.4); Platelet Count 181 10x3/uL (130-400); RBC Distribution Width 14.1 % (11.5-14.5); Red Blood Cell (RBC) Count 4.44 mill/uL (4.70-6.10)
[2024-04-26 04:45] LABS: Anion Gap 15 mmol/L (10-20); BUN (Urea Nitrogen) 16 mg/dL (8.4-25.7); Calc. Creatinine Clearance 91 mL/min (70-130); Calcium 9.1 mg/dL (7.8-10.44); Carbon Dioxide 27 mmol/L (23-31); Chloride 103 mmol/L (98-107); Estimated GFR 97; Glucose 161 mg/dL (80-115); Sodium 141 mmol/L (136-145)
[2024-04-26 06:56] LABS: Magnesium 1.8 mg/dL (1.6-2.6)
[2024-04-26] MEDS: Aspirin 81 mg Enteric Coated Tablet PO SCH (09:10)
[2024-04-26] MEDS: Spironolactone 25 MG TAB PO SCH (09:10)
[2024-04-26] MEDS: predniSONE 20 MG TAB PO SCH (09:11)
[2024-04-26] MEDS: Folic Acid/Vit B Comp W-C PO SCH (09:11)
[2024-04-26] MEDS ORDERED: Ipratropium/Albuterol 3 ML NEB NEB PRN (11:18)
[2024-04-26] MEDS: Potassium Chloride 20 MEQ TAB PO SCH (11:55)
[2024-04-26] MEDS: Magnesium Sulfate In Water 4 GM in Premix 1 BAG IVPB SCH (11:55)
[2024-04-27] MEDS ORDERED: Carvedilol 3.125 MG TAB PO SCH (07:41)
[2024-04-27] MEDS ORDERED: Carvedilol 6.25 MG TAB PO SCH (08:00)
[2024-04-27] MEDS ORDERED: Furosemide 20 MG TAB PO SCH ×2 (09:00)
[2024-04-27] MEDS ORDERED: Dapagliflozin Propanediol 10 MG TAB PO SCH (09:00)
[2024-04-27] MEDS: Carvedilol 6.25 MG TAB PO SCH (09:05)
[2024-04-27] MEDS: Spironolactone 25 MG TAB PO SCH (09:05)
[2024-04-27] MEDS: Empagliflozin 10 MG TAB PO SCH (09:15)
[2024-04-27] MEDS: Furosemide 40 MG TAB PO SCH (09:15)
[2024-04-27] MEDS: Valsartan 80 MG TAB PO SCH (09:16)
[2024-04-27 11:38] VITALS: TEMP 97.6
[2024-04-27 11:43] VITALS: BP 104/58
== END 2024-04-27 14:35 | disposition home or self-care (01) | DRG 291 ==
LOC: ERS 03:54 → 2NO 06:25
PROVIDERS: ADMIT Internal Medicine; ATTEND Internal Medicine
DX: I11.0 Hypertensive heart disease with heart failure (principal); I50.23 Acute on chronic systolic (congestive) heart failure; J44.1 Chronic obstructive pulmonary disease with (acute) exacerbation; I48.20 Chronic atrial fibrillation, unspecified; I47.20 Ventricular tachycardia, unspecified; F17.210 Nicotine dependence, cigarettes, uncomplicated; I42.9 Cardiomyopathy, unspecified; Z86.73 Personal history of transient ischemic attack (TIA), and cerebral infarction without residual deficits; Z79.82 Long term (current) use of aspirin; Z79.899 Other long term (current) drug therapy; E78.5 Hyperlipidemia, unspecified; Z95.810 Presence of automatic (implantable) cardiac defibrillator; Z91.148 Patient's other noncompliance with medication regimen for other reason
CPT/HCPCS: 36415; 36416; 71045; 80048; 80053; 83735; 83880; 84484; 85025; 93005; 93798; 94640; 96374; J1940; J3475; J7512; J7611; J7620

== ENCOUNTER 2024-05-26 11:23 | Emergency (ER) | payer MEDICARE ==
[2024-05-26] MEDS ORDERED: Ketorolac Tromethamine 30 MG (1 mL) VIAL ONE (13:46)
== END 2024-05-26 14:08 | disposition home or self-care (01) ==
LOC: ERS 11:23
DX: B02.9 Zoster without complications (principal); I11.0 Hypertensive heart disease with heart failure; I50.9 Heart failure, unspecified; F17.210 Nicotine dependence, cigarettes, uncomplicated
CPT/HCPCS: 96372; 99282; J1885

== ENCOUNTER 2025-02-10 07:43 | Inpatient (IN) | payer MEDICARE ==
[2025-02-10 08:16] LABS: #Basophils 0.05 10x3/uL (0.0-0.2); #Eosinophils 0.07 10x3/uL (0.0-0.7); #Monocytes 0.60 10x3/uL (0.11-0.59); #Neutrophils 3.85 10x3/uL (1.40-6.50); %Basophils 0.8 % (0.0-1.0); %Eosinophils 1.1 % (0.0-10.0); %Lymphocytes 28.8 % (21.0-51.0); %Monocytes 9.3 % (0.0-10.0); %Neutrophils 59.7 % (42.0-75.0); Hematocrit 48.4 % (42.0-52.0); Hemoglobin 14.9 g/dL (14.0-18.0); Mean Corpuscular Hemoglobin 29.3 pg (27.0-31.0); Mean Corpuscular Volume 95.1 fL (78.0-98.0); Platelet Count 247 10x3/uL (130-400); Red Blood Cell (RBC) Count 5.09 mill/uL (4.70-6.10); White Blood Cell (WBC) Count 6.45 10x3/uL (4.8-10.8)
[2025-02-10] MEDS ORDERED: Furosemide 40 MG (4 mL) VIAL ONE (08:21)
[2025-02-10] MEDS ORDERED: Aspirin Chewable 81 MG TAB ONE ×2 (08:21→08:22)
[2025-02-10 08:30] LABS: ALT (SGPT) 19 U/L (Less than 45); AST (SGOT) 42 U/L (11-34); Albumin 3.9 g/dL (3.1-4.5); Alkaline Phosphatase 137 U/L (40-110); Anion Gap 20 mmol/L (10-20); BUN (Urea Nitrogen) 21 mg/dL (8.4-25.7); Bilirubin, Total 1.3 mg/dL (0.3-1.2); Calc. Creatinine Clearance 0 mL/min (70-130); Calcium 9.5 mg/dL (7.8-10.44); Carbon Dioxide 20 mmol/L (23-31); Chloride 111 mmol/L (98-107); Globulin 3.1 g/dL (2.4-3.5); Glucose 98 mg/dL (80-115); Potassium 4.8 mmol/L (3.5-5.1); Sodium 146 mmol/L (136-145)
[2025-02-10] MEDS ORDERED: Metoprolol Tartrate 5 MG (5 mL) VIAL ONE (08:35)
[2025-02-10 10:01] LABS: Bacteria/HPF None Seen HPF (None Seen); CAUTI Indications for Culture < 2yrs of age; Glucose, Urine (Dipstick) Normal (Negative); Leukocyte Negative Leu/uL (Negative); Protein, Urine (Dipstick) Negative (Neg-Trace); RBC/HPF 0-3 HPF (0-3); Specific Gravity, Urine 1.008 (1.002-1.036); WBC/HPF 0-3 HPF (0-3)
[2025-02-10 10:02] LABS: Urine Culture Reflex Yes Yes
[2025-02-10 12:16] VITALS: BMI 24.9
[2025-02-10] MEDS: Furosemide 40 MG (4 mL) VIAL SLOW IVP SCH (13:41)
[2025-02-10] MEDS: Spironolactone 25 MG TAB PO SCH (13:41)
[2025-02-10] MEDS: Carvedilol 6.25 MG TAB PO SCH ×2 (13:41→21:05)
[2025-02-10 16:19] LABS: Iron 49 ug/dL (65-175); Iron Binding Capacity, Total 361 mcg/dL (261-462); Magnesium 1.9 mg/dL (1.6-2.6)
[2025-02-10] MEDS: Apixaban 5 MG TAB PO SCH (21:06)
[2025-02-11 04:09] LABS: ALT (SGPT) 19 U/L (Less than 45); AST (SGOT) 30 U/L (11-34); Albumin 3.8 g/dL (3.1-4.5); Alkaline Phosphatase 117 U/L (40-110); Bilirubin, Direct 0.4 mg/dL (0.1-0.3); Bilirubin, Total 1.2 mg/dL (0.3-1.2)
[2025-02-11 04:10] LABS: Anion Gap 14 mmol/L (10-20); BUN (Urea Nitrogen) 29 mg/dL (8.4-25.7); Calc. Creatinine Clearance 66 mL/min (70-130); Calcium 9.5 mg/dL (7.8-10.44); Carbon Dioxide 27 mmol/L (23-31); Chloride 103 mmol/L (98-107); Glucose 89 mg/dL (80-115); Magnesium 1.9 mg/dL (1.6-2.6); Potassium 4.3 mmol/L (3.5-5.1); Sodium 140 mmol/L (136-145)
[2025-02-11] MEDS: Losartan 25 MG TAB PO SCH (09:25)
[2025-02-11] MEDS: Spironolactone 25 MG TAB PO SCH (09:25)
[2025-02-11] MEDS: Magnesium 2 GM/50 ML(in water) 2 GM in Premix 1 BAG IVPB SCH (10:55)
[2025-02-12 05:11] LABS: #Basophils 0.04 10x3/uL (0.0-0.2); #Eosinophils 0.09 10x3/uL (0.0-0.7); #Monocytes 0.53 10x3/uL (0.11-0.59); #Neutrophils 1.82 10x3/uL (1.40-6.50); %Basophils 1.1 % (0.0-1.0); %Eosinophils 2.4 % (0.0-10.0); %Lymphocytes 33.1 % (21.0-51.0); %Monocytes 14.2 % (0.0-10.0); %Neutrophils 48.9 % (42.0-75.0); Hematocrit 46.7 % (42.0-52.0); Hemoglobin 14.5 g/dL (14.0-18.0); Mean Corpuscular Hemoglobin 28.9 pg (27.0-31.0); Mean Corpuscular Volume 93.2 fL (78.0-98.0); Platelet Count 215 10x3/uL (130-400); Red Blood Cell (RBC) Count 5.01 mill/uL (4.70-6.10); White Blood Cell (WBC) Count 3.72 10x3/uL (4.8-10.8)
[2025-02-12 05:38] LABS: Anion Gap 12 mmol/L (10-20); BUN (Urea Nitrogen) 29 mg/dL (8.4-25.7); Calc. Creatinine Clearance 70 mL/min (70-130); Calcium 9.1 mg/dL (7.8-10.44); Carbon Dioxide 29 mmol/L (23-31); Chloride 103 mmol/L (98-107); Glucose 82 mg/dL (80-115); Potassium 3.8 mmol/L (3.5-5.1); Sodium 140 mmol/L (136-145)
[2025-02-12] MEDS: Amiodarone 200 MG TAB PO SCH (20:54)
[2025-02-13 05:08] LABS: #Basophils 0.05 10x3/uL (0.0-0.2); #Eosinophils 0.06 10x3/uL (0.0-0.7); #Monocytes 0.71 10x3/uL (0.11-0.59); #Neutrophils 1.77 10x3/uL (1.40-6.50); %Basophils 1.3 % (0.0-1.0); %Eosinophils 1.5 % (0.0-10.0); %Lymphocytes 34.2 % (21.0-51.0); %Monocytes 18.0 % (0.0-10.0); %Neutrophils 44.7 % (42.0-75.0); Hematocrit 47.5 % (42.0-52.0); Hemoglobin 15.1 g/dL (14.0-18.0); Mean Corpuscular Hemoglobin 29.7 pg (27.0-31.0); Mean Corpuscular Volume 93.5 fL (78.0-98.0); Platelet Count 213 10x3/uL (130-400); Red Blood Cell (RBC) Count 5.08 mill/uL (4.70-6.10); White Blood Cell (WBC) Count 3.95 10x3/uL (4.8-10.8)
[2025-02-13 07:54] VITALS: BP 109/66; TEMP 97.6
[2025-02-13] MEDS ORDERED: Furosemide 20 MG TAB PO SCH (09:00)
[2025-02-13] MEDS: Furosemide 40 MG TAB PO SCH (09:02)
== END 2025-02-13 12:14 | disposition home or self-care (01) | DRG 291 ==
LOC: ERS 07:43 → 2SE 10:50 → OBS 02-11 12:31
PROVIDERS: ADMIT Family Medicine; ATTEND Family Medicine
DX: I11.0 Hypertensive heart disease with heart failure (principal); I50.23 Acute on chronic systolic (congestive) heart failure; J96.01 Acute respiratory failure with hypoxia; E87.1 Hypo-osmolality and hyponatremia; E87.20 Acidosis, unspecified; I47.19 Other supraventricular tachycardia; I48.11 Longstanding persistent atrial fibrillation; Z66 Do not resuscitate; I42.8 Other cardiomyopathies; F10.90 Alcohol use, unspecified, uncomplicated; J43.9 Emphysema, unspecified; F17.210 Nicotine dependence, cigarettes, uncomplicated; I49.3 Ventricular premature depolarization; E87.8 Other disorders of electrolyte and fluid balance, not elsewhere classified; R94.5 Abnormal results of liver function studies; Z86.73 Personal history of transient ischemic attack (TIA), and cerebral infarction without residual deficits; Z85.810 Personal history of malignant neoplasm of tongue; Z98.890 Other specified postprocedural states; Z95.5 Presence of coronary angioplasty implant and graft; I25.2 Old myocardial infarction; Z91.148 Patient's other noncompliance with medication regimen for other reason; Z86.711 Personal history of pulmonary embolism
CPT/HCPCS: 36415; 71045; 80048; 80053; 80076; 81001; 82728; 83540; 83550; 83690; 83735; 83880; 84443; 85025; 87086; 87426; 93005; 93306; 94640; 96374; 96375; 97139; J1940; J3475; J7620

== ENCOUNTER 2025-05-25 16:44 | Inpatient (IN) | payer MEDICARE ==
[2025-05-25] MEDS ORDERED: Furosemide 40 MG (4 mL) VIAL ONE (19:24)
[2025-05-25 19:53] LABS: #Basophils 0.03 10x3/uL (0.0-0.2); #Eosinophils 0.07 10x3/uL (0.0-0.7); #Monocytes 0.53 10x3/uL (0.11-0.59); #Neutrophils 4.66 10x3/uL (1.40-6.50); %Basophils 0.5 % (0.0-1.0); %Eosinophils 1.1 % (0.0-10.0); %Lymphocytes 19.7 % (21.0-51.0); %Monocytes 8.0 % (0.0-10.0); %Neutrophils 70.5 % (42.0-75.0); Hematocrit 46.2 % (42.0-52.0); Hemoglobin 14.5 g/dL (14.0-18.0); Mean Corpuscular Hemoglobin 29.6 pg (27.0-31.0); Mean Corpuscular Volume 94.3 fL (78.0-98.0); Platelet Count 301 10x3/uL (130-400); Red Blood Cell (RBC) Count 4.90 mill/uL (4.70-6.10); White Blood Cell (WBC) Count 6.60 10x3/uL (4.8-10.8)
[2025-05-25] MEDS ORDERED: hydrALAZINE 20 MG/ML VIAL ONE (21:30)
[2025-05-25] MEDS ORDERED: Senokot S 8.6-50 MG TAB PO PRN (21:56)
[2025-05-25] MEDS ORDERED: Calcium Carbonate 500 MG ChewTAB PO PRN (21:56)
[2025-05-25] MEDS ORDERED: Acetaminophen 325 MG TAB PO PRN (21:56)
[2025-05-25] MEDS ORDERED: Electrolyte Replacement Protocol 1 EACH FS SCH (22:00)
[2025-05-25] MEDS ORDERED: PHOS-NAK 1 PKT PACK PO PRN (22:15)
[2025-05-25] MEDS ORDERED: Magnesium Sulfate In Water 4 GM in Premix 1 BAG IVPB PRN (22:15)
[2025-05-25] MEDS ORDERED: Potassium Chloride 20 MEQ in Premix 1 BAG IVPB PRN (22:15)
[2025-05-25 22:33] LABS: ALT (SGPT) 19 U/L (Less than 45); AST (SGOT) 38 U/L (11-34); Albumin 4.3 g/dL (3.1-4.5); Alkaline Phosphatase 113 U/L (40-110); Anion Gap 21 mmol/L (10-20); BUN (Urea Nitrogen) 16 mg/dL (8.4-25.7); Bilirubin, Total 1.1 mg/dL (0.3-1.2); Calc. Creatinine Clearance 0 mL/min (70-130); Calcium 9.4 mg/dL (7.8-10.44); Carbon Dioxide 21 mmol/L (23-31); Chloride 107 mmol/L (98-107); Globulin 3.4 g/dL (2.4-3.5); Glucose 84 mg/dL (80-115); Potassium 4.1 mmol/L (3.5-5.1); Sodium 145 mmol/L (136-145)
[2025-05-25] MEDS: CefTAZidime\\FORTAZ 1 GM in Sodium Chloride 0.9% 100 ML IVPB SCH (23:58)
[2025-05-26 00:05] VITALS: BMI 25.0
[2025-05-26 04:36] LABS: #Basophils 0.05 10x3/uL (0.0-0.2); #Eosinophils 0.08 10x3/uL (0.0-0.7); #Monocytes 0.57 10x3/uL (0.11-0.59); #Neutrophils 3.22 10x3/uL (1.40-6.50); %Basophils 1.0 % (0.0-1.0); %Eosinophils 1.6 % (0.0-10.0); %Lymphocytes 21.9 % (21.0-51.0); %Monocytes 11.3 % (0.0-10.0); %Neutrophils 64.0 % (42.0-75.0); Hematocrit 42.4 % (42.0-52.0); Hemoglobin 13.2 g/dL (14.0-18.0); Mean Corpuscular Hemoglobin 29.5 pg (27.0-31.0); Mean Corpuscular Volume 94.9 fL (78.0-98.0); Platelet Count 271 10x3/uL (130-400); Red Blood Cell (RBC) Count 4.47 mill/uL (4.70-6.10); White Blood Cell (WBC) Count 5.03 10x3/uL (4.8-10.8)
[2025-05-26 05:00] LABS: ALT (SGPT) 15 U/L (Less than 45); AST (SGOT) 26 U/L (11-34); Albumin 3.4 g/dL (3.1-4.5); Alkaline Phosphatase 100 U/L (40-110); Anion Gap 11 mmol/L (10-20); BUN (Urea Nitrogen) 17 mg/dL (8.4-25.7); Bilirubin, Total 1.0 mg/dL (0.3-1.2); Calc. Creatinine Clearance 74 mL/min (70-130); Calcium 8.8 mg/dL (7.8-10.44); Carbon Dioxide 26 mmol/L (23-31); Chloride 110 mmol/L (98-107); Globulin 2.7 g/dL (2.4-3.5); Glucose 101 mg/dL (80-115); Magnesium 1.9 mg/dL (1.6-2.6); Potassium 3.8 mmol/L (3.5-5.1); Sodium 143 mmol/L (136-145)
[2025-05-26] MEDS: Mometasone 200 MCG/Formoterol 5 MCG 120 PUFF INHALER INH SCH (07:13)
[2025-05-26] MEDS ORDERED: Carvedilol 6.25 MG TAB PO SCH (08:00)
[2025-05-26] MEDS: Carvedilol 6.25 MG TAB PO SCH (08:39)
[2025-05-26] MEDS: Apixaban 5 MG TAB PO SCH (08:40)
[2025-05-26] MEDS: Spironolactone 25 MG TAB PO SCH (08:40)
[2025-05-26] MEDS: Losartan 25 MG TAB PO SCH (08:41)
[2025-05-26] MEDS: Furosemide 40 MG (4 mL) VIAL SLOW IVP SCH (13:43)
[2025-05-27] MEDS: Furosemide 40 MG (4 mL) VIAL SLOW IVP SCH (05:52)
[2025-05-27 06:27] LABS: ALT (SGPT) 17 U/L (Less than 45); AST (SGOT) 25 U/L (11-34); Albumin 3.8 g/dL (3.1-4.5); Alkaline Phosphatase 103 U/L (40-110); Anion Gap 15 mmol/L (10-20); BUN (Urea Nitrogen) 26 mg/dL (8.4-25.7); Bilirubin, Total 0.8 mg/dL (0.3-1.2); Calc. Creatinine Clearance 59 mL/min (70-130); Calcium 9.2 mg/dL (7.8-10.44); Carbon Dioxide 26 mmol/L (23-31); Chloride 103 mmol/L (98-107); Globulin 3.0 g/dL (2.4-3.5); Glucose 91 mg/dL (80-115); Magnesium 1.8 mg/dL (1.6-2.6); Potassium 4.3 mmol/L (3.5-5.1); Sodium 140 mmol/L (136-145)
[2025-05-27] MEDS: Guaifenesin DM 100-10/5 ML UDCUP PO PRN (08:40)
[2025-05-28 04:57] LABS: ALT (SGPT) 11 U/L (Less than 45); AST (SGOT) 23 U/L (11-34); Albumin 3.5 g/dL (3.1-4.5); Alkaline Phosphatase 99 U/L (40-110); Anion Gap 14 mmol/L (10-20); BUN (Urea Nitrogen) 26 mg/dL (8.4-25.7); Bilirubin, Total 1.1 mg/dL (0.3-1.2); Calc. Creatinine Clearance 69 mL/min (70-130); Calcium 9.1 mg/dL (7.8-10.44); Carbon Dioxide 25 mmol/L (23-31); Chloride 101 mmol/L (98-107); Globulin 3.0 g/dL (2.4-3.5); Glucose 84 mg/dL (80-115); Magnesium 1.8 mg/dL (1.6-2.6); Potassium 3.9 mmol/L (3.5-5.1); Sodium 136 mmol/L (136-145)
[2025-05-28] MEDS: Furosemide 40 MG (4 mL) VIAL SLOW IVP SCH (05:53)
[2025-05-28 08:41] VITALS: TEMP 97.7
[2025-05-28 11:52] VITALS: BP 110/64
[2025-05-28] MEDS: LevoFLOXacin 750 mg/D5W 750 MG in Premix 1 BAG IVPB SCH (12:10)
== END 2025-05-28 14:33 | disposition home or self-care (01) | DRG 193 ==
LOC: ERS 16:44 → OBS 21:56
PROVIDERS: ADMIT Internal Medicine; ATTEND Internal Medicine
DX: J18.9 Pneumonia, unspecified organism (principal); I50.23 Acute on chronic systolic (congestive) heart failure; I48.20 Chronic atrial fibrillation, unspecified; I47.20 Ventricular tachycardia, unspecified; N17.9 Acute kidney failure, unspecified; J44.0 Chronic obstructive pulmonary disease with (acute) lower respiratory infection; I11.0 Hypertensive heart disease with heart failure; J44.89 Other specified chronic obstructive pulmonary disease; F17.210 Nicotine dependence, cigarettes, uncomplicated; E78.5 Hyperlipidemia, unspecified; Z86.711 Personal history of pulmonary embolism; Z79.01 Long term (current) use of anticoagulants; Z79.899 Other long term (current) drug therapy; Z91.148 Patient's other noncompliance with medication regimen for other reason
CPT/HCPCS: 36415; 71045; 80053; 83735; 83880; 84100; 84484; 85025; 93005; 94640; 94664; 94760; 96365; 96375; J0360; J0713; J1940; J1956